=== PATIENT | male | born 1960 | race Caucasian/White ===

== ENCOUNTER → 2019-06-13 08:41 | Outpatient (BNVA) | payer OTHER, SELFPAY | PROVIDERS: Family Provider Family Medicine; PCP Family Medicine; Visit Provider Nurse Practitioner Family | DX: R31.9 Hematuria, unspecified; N40.1 Benign prostatic hyperplasia with lower urinary tract symptoms | CPT/HCPCS: 81001 ==

== ENCOUNTER 2021-03-13 11:58 | Emergency (ER) | payer OTHER, SELFPAY ==
[2021-03-13 12:17] VITALS: BP 149/95; PULSE 110; RESP 20; TEMP 36.8; O2SAT 95; BMI 36.9
[2021-03-13 12:54] LABS: Urine Color Red (Yellow)
[2021-03-13 12:55] LABS: Add Urine Culture? Yes; Add Urine Microscopic? YES; Bilirubin Urine 1+ (Negative); Blood Urine 3+ (Negative); Glucose Urine UA 4+ (Normal); Ketones Urine 1+ (Negative); Leukocyte Esterase Urine 1+ (Negative); Nitrate Urine Positive (Negative); Protein Urine 3+ (Negative); RBC Urine TOO NUMEROUS TO CNT /hpf (0-2); Urobilinogen Urine 1 mg/dL (Negative); WBC Urine 0-4 /hpf (0-5); pH Urine 5 (5-7)
[2021-03-13 13:48] LABS: Basophils # 0.1 10^3/uL (0.0-0.1); Basophils % 0.5 %; Eosinophils # 0.1 10^3/uL (0.0-0.8); Eosinophils % 1.1 %; Hematocrit 46.6 % (42.0-52.0); Hemoglobin 15.5 g/dL (11.7-16.6); Lymphocytes # 2.3 10^3/uL (0.8-4.8); Lymphocytes % 24.6 %; Mean Corpuscular HGB Conc 33.3 g/dL (30.0-36.0); Mean Corpuscular Hemoglobin 30.3 pg (28.0-34.0); Mean Platelet Volume 12.7 fL (7.4-10.4); Monocytes # 0.5 10^3/uL (0.2-0.9); Monocytes % 5.4 %; Neutrophils # 6.21 10^3/uL (1.8-7.7); Neutrophils % 68.1 %; Nucleated Red Blood Cells % 0 %; Platelet Count 179 10^3/cmm (130-400); Red Blood Count 5.12 10^6/uL (4.1-5.3); Red Cell Distribution Width 13.2 % (12.1-15.1); White Blood Count 9.1 10^3/uL (4.0-10.0)
[2021-03-13 13:55] VITALS: BP 136/89; PULSE 101; RESP 16; O2SAT 93
[2021-03-13 14:09] LABS: Alanine Aminotransferase 89 U/L (0-41); Albumin Level 4.2 g/dL (3.5-5.2); Alkaline Phosphatase 117 IU/L (40-130); Anion Gap 16.3 (5-19); Aspartate Amino Transferase 51 U/L (0-40); Blood Urea Nitrogen 25 mg/dL (8-23); Carbon Dioxide 21 mmol/L (22-29); Chloride 105 mmol/L (98-107); Globulin 2.5 g/dL (1.3-4.6); Glomerular Filtration Rate 85.8 mL/min (90-130); Glucose 240 mg/dL (65-115); Osmolality Calculated 298 mOsm/kg (285-295); Potassium 4.3 mmol/L (3.5-5.1); Sodium 138 mmol/L (136-145); Total Bilirubin 0.6 mg/dL (0.15-1.2); Total Protein 6.7 g/dL (6.6-8.7)
--- NOTE | 2021-03-13 14:12 | ED_ITS ---
HPI - Male Genitourinary General: Chief complaint: Urogenital-Male Stated complaint: BLOOD IN URINE Time Seen by Provider: 03/13/21 13:53 Source: patient Mode of arrival: ambulatory Limitations: no limitations History of Present Illness: 60 year old male presents to ER with hematuria and blood clots in urine. Reports this started 3 days ago. He has to pee every 10-15 minutes, but he only pees a little bit and feels like he can't fully evacuate his bladder. Reports dysuria. Reports abdominal pain and flank pain that started today. No history of kidney stones or cancer. Reports that he used to see a urologist due to an enlarged prostate. MD Complaint: other (hematuria) Onset (ago): day(s) (3) Associated symptoms: Reports dysuria and hematuria; Deny fevers/chills, nausea or vomiting Review of Systems Const: Denies: fever(s), chills, body aches, change in appetite, fatigue or malaise ENMT: Denies: throat pain, nasal discharge or nasal congestion Card: Denies: chest pain, edema, dyspnea on exertion or orthopnea Resp: Denies: dyspnea or productive cough GI: Denies: nausea, vomiting, diarrhea, constipation or bloating : Reports: flank pain, dysuria, urinary frequency, urinary urgency, urinary hesitancy and hematuria Skin/Breast: Denies: rash or pruritus [facility] ED PFSH: Medical History (Updated 03/13/21 @ 16:39 by Felipe Ortiz DO) BPH NOS w ur obs/LUTS Diabetes Hematuria Surgical History S/P decompression of ulnar nerve Family History Mother , 75 Cancer Diabetes Father , 80's No problems noted. Social History Smoking and tobacco status: former smoker Alcohol intake: never Marital status: Single Current occupational status: employed History of recent travel: No Physical Exam Const: COMMON NORMALS: no acute distress GENERAL APPEARANCE: cooperative and comfortable ORIENTATION/CONSCIOUSNESS: Yes awake, Yes oriented to person, Yes oriented to place and Yes oriented to time Resp: COMMON NORMALS: normal respiratory effort, No retractions, No use of accessory muscles and clear to auscultation bilaterally AUSCULTATION: clear to auscultation bilaterally Cardio: COMMON NORMALS: regular rate, regular rhythm and No murmurs present (Cardio) RATE: regular rate RHYTHM: regular rhythm GI: COMMON NORMALS: Soft to palpation PALPATION: Yes Soft to palpation, No Tenderness to palpation present (GI) and No Guarding due to palpation present (GI) OTHER: Generalized tenderness to palpation. : COMMON NORMALS: Yes no CVA tenderness BLADDER/KIDNEY EXAM: Yes no CVA tenderness OTHER: Bilateral flank pain. Back/Pelvis: COMMON NORMALS: no CVA tenderness Extremity: COMMON NORMALS: normal to inspection, capillary refill normal and no clubbing, cyanosis or edema Neuro: SENSORIUM/ORIENTATION: Yes oriented to person, Yes oriented to place and Yes oriented to time Course Vital Signs: Vital signs: Vital Signs Temperature 98.3 F 03/13/21 12:17 Pulse Rate 101 H 03/13/21 13:55 Respiratory Rate 16 03/13/21 13:55 Blood Pressure 136/89 03/13/21 13:55 Pulse Oximetry 93 03/13/21 13:55 [facility] - Male Medical Decision Making Labs and imaging reviewed with the patient. He is already on max dose of Flomax and is on finasteride. He does have positive nitrites and was started on Bactrim Corley placed irrigated bladder aggressively. We will have him use a leg bag at home and have him set up to follow-up with Dr. Paniagua if he has any worsening problems of the leg bag stops draining that he needs to return to the emergency room to have it reirrigated. Medical Records I reviewed the patient's medical records. Lab Data I reviewed the patient's lab results. : 03/13/21 13:37 03/13/21 13:37 Radiology Impressions Abdomen/Pelvis CT 03/13/21 14:12 IMPRESSION: 1. No renal mass or obstruction. 2. too small to characterize hypodensities within each kidney. Differential includes cysts, complex cysts and early solid mass. There is been a very slight increase in size of these renal hypodensities since 04/16/2019. No large solid mass. 3. Enlarged prostate gland measures 6.5 x 6.1 x 6.8 cm encroaching into the urinary bladder. 4. Lobulated high density material in the urinary bladder consistent with acute blood. The source of this blood is uncertain but could be the prostate gland. Cannot confirm acutely bleeding lesion within the kidneys. 5. Hepatomegaly and hepatic steatosis. 6. No significant adenopathy. Notified Felipe Ortiz DO at 03/13/2021 3:02 PM. Laboratory Results WBC 9.1 10^3/uL (4.0-10.0) 03/13/21 13:37 RBC 5.12 10^6/uL (4.1-5.3) 03/13/21 13:37 Hgb 15.5 g/dL (11.7-16.6) 03/13/21 13:37 Hct 46.6 % (42.0-52.0) 03/13/21 13:37 MCV 91.0 fl (80-94) 03/13/21 13:37 MCH 30.3 pg (28.0-34.0) 03/13/21 13:37 MCHC 33.3 g/dL (30.0-36.0) 03/13/21 13:37 RDW 13.2 % (12.1-15.1) 03/13/21 13:37 Plt Count 179 10^3/cmm (130-400) 03/13/21 13:37 MPV 12.7 fL (7.4-10.4) H 03/13/21 13:37 Neut % (Auto) 68.1 % 03/13/21 13:37 Lymph % (Auto) 24.6 % 03/13/21 13:37 Guthrie % (Auto) 5.4 % 03/13/21 13:37 Eos % (Auto) 1.1 % 03/13/21 13:37 Baso % (Auto) 0.5 % 03/13/21 13:37 Neut # (Auto) 6.21 10^3/uL (1.8-7.7) 03/13/21 13:37 Lymph # (Auto) 2.3 10^3/uL (0.8-4.8) 03/13/21 13:37 Guthrie # (Auto) 0.5 10^3/uL (0.2-0.9) 03/13/21 13:37 Eos # (Auto) 0.1 10^3/uL (0.0-0.8) 03/13/21 13:37 Baso # (Auto) 0.1 10^3/uL (0.0-0.1) 03/13/21 13:37 Nucleated RBC % (auto) 0 % 03/13/21 13:37 Nucleated RBCs # 0.0 /100WBC 03/13/21 13:37 Sodium 138 mmol/L (136-145) 03/13/21 13:37 Potassium 4.3 mmol/L (3.5-5.1) 03/13/21 13:37 Chloride 105 mmol/L (98-107) 03/13/21 13:37 Carbon Dioxide 21 mmol/L (22-29) L 03/13/21 13:37 Anion Gap 16.3 (5-19) 03/13/21 13:37 BUN 25 mg/dL (8-23) H 03/13/21 13:37 Creatinine 0.9 mg/dL (0.7-1.2) 03/13/21 13:37 GFR Calculation 85.8 mL/min (90-130) L 03/13/21 13:37 Glucose 240 mg/dL (65-115) H 03/13/21 13:37 Calculated Osmolality 298 mOsm/kg (285-295) H 03/13/21 13:37 Calcium 9.0 mg/dL (8.5-10.5) 03/13/21 13:37 Total Bilirubin 0.6 mg/dL (0.15-1.2) 03/13/21 13:37 AST 51 U/L (0-40) H 03/13/21 13:37 ALT 89 U/L (0-41) H 03/13/21 13:37 Alkaline Phosphatase 117 IU/L (40-130) 03/13/21 13:37 Total Protein 6.7 g/dL (6.6-8.7) 03/13/21 13:37 Albumin 4.2 g/dL (3.5-5.2) 03/13/21 13:37 Globulin 2.5 g/dL (1.3-4.6) 03/13/21 13:37 Urine Color Red (Yellow) 03/13/21 12:06 Urine Appearance Sl cloudy (CLEAR) A 03/13/21 12:06 Urine pH 5 (5-7) 03/13/21 12:06 Ur Specific [place] 1.020 (1.005-1.030) 03/13/21 12:06 Urine Protein 3+ (Negative) H 03/13/21 12:06 Urine Glucose (UA) 4+ (Normal) H 03/13/21 12:06 Urine Ketones 1+ (Negative) H 03/13/21 12:06 Urine Blood 3+ (Negative) H 03/13/21 12:06 Urine Nitrate Positive (Negative) H 03/13/21 12:06 Urine Bilirubin 1+ (Negative) H 03/13/21 12:06 Urine Urobilinogen 1 mg/dL (Negative) H 03/13/21 12:06 Ur Leukocyte Esterase 1+ (Negative) H 03/13/21 12:06 Urine RBC Too numerous to cnt /hpf (0-2) H 03/13/21 12:06 Urine WBC 0-4 /hpf (0-5) H 03/13/21 12:06 Ur Squamous Epith Cells None /hpf (0-5) 03/13/21 12:06 Amorphous Sediment Not Reportable 03/13/21 12:06 Urine Bacteria None /hpf (NONE) 03/13/21 12:06 Discharge Plan Discharge Patient Disposition: Home Clinical Impression: BPH NOS w ur obs/LUTS, Acute retention of urine Condition: Stable Prescriptions: New Bactrim DS 800-160 mg tablet 1 tab PO BID 10 Days Qty: 20 0RF No Action metformin 1,000 mg tablet 1,000 mg PO BID 0RF glipizide 5 mg tablet 10 mg PO BID 0RF tamsulosin 0.4 mg capsule 0.4 mg PO BID Qty: 180 0RF finasteride 5 mg tablet 5 mg PO DAILY Qty: 90 0RF Discharge Orders: Discharge ED (Routine); Ordered 03/13/21 Ordered By: Felipe Ortiz Referrals: Raimundo Bearden [Primary Care Provider] - Discharge Diet: Usual diet Discharge Activity: Resume usual activity Patient Instructions: Opioid Safety Activity Restrictions/Additional Instructions: Case management will call to make arrangements for you to see Dr. Paniagua. Continue to use the leg bag until then. Is a leg bag does not drain adequately return to the emergency room to have it flushed. Coding Level of Care Code ED Cisco Unified Communications Engineer for Chg Fwd Exam Detailed
--- NOTE | 2021-03-13 14:12 | CT_ITS ---
WS: [id number] CT ABDOMEN AND PELVIS WITH AND WITHOUT CONTRAST HISTORY: abd pain, hematuria. TECHNIQUE: Unenhanced 5 mm axial imaging first performed through the abdomen. Post contrast imaging t hrough the abdomen and pelvis. Oral contrast has not been provided. Sagittal and coronal reformats a re submitted. All CT scans at [facility] use at least one of these dose optimization techniqu es: automated exposure control; mA and/or kV adjustment per patient size (includes targeted exams whe re dose is matched to clinical indication); or iterative reconstruction. CONTRAST: Omnipaque 300; 95 mL IV. DLP: 1637.43 mGy.cm COMPARISON: 04/16/2019 Lung bases are clear. Lung bases are hyperexpanded. Mildly enlarged heart with a small hiatal hernia. Liver is enlarged with moderate to severe hepatic steatosis. Focal area of blush-like enhancement jus t to the LEFT of the falciform ligament probably a hemangioma which completely fills in and becomes i sodense on the delayed imaging. Portal vein is normal. Gallbladder is normal. Normal size spleen with granulomata. Normal pancreas and adrenal glands. Mild atherosclerosis aorta. RIGHT kidney: Normal size kidney with no obstruction or calcification. There are a few scattered hypo densities throughout the kidney. Hypoattenuating nodule measuring 9 mm in the mid to lower kidney may be a complex cyst or early neoplasm. These low-attenuation masses were also present on the prior CT from 04/16/2019 with mild increase in size. Contrast in the renal pelvis and proximal ureter is identi fied on the delayed images. Unfortunately patient was unable to retain distention of the urinary blad samm and voided prior to the imaging on the delayed sequence. Therefore the urinary bladder is not di stended with contrast. LEFT kidney: Mild perinephric stranding. Nonobstructing calcification posterior mid kidney. There are a few scattered hypodensities which cannot be further characterized due to their small size. No obst ruction. Proximal LEFT ureter is normal caliber. Urinary bladder: Prostate gland is enlarged encroaching into the urinary bladder. Prostate extends ov er length of 6.5 cm x 6.1 x 6.8 cm. There is central calcifications noted. Within the urinary bladder there is an additional lobulated area of increased density which is probably acute blood products wi thin the bladder. No discrete bladder masses otherwise identified other than the invading prostate gl and. No ascites. There are a few small cervical chain lymph nodes. Lymph nodes are not enlarged. Normal ap pendix. No GI tract obstruction. Increase in the lumbar lordosis. No destructive bone lesions. CT/CT abdomen pelvis wo/w [id number] IMPRESSION: 1. No renal mass or obstruction. 2. too small to characterize hypodensities within each kidney. Differential in cludes cysts, complex cysts and early solid mass. There is been a very slight i ncrease in size of these renal hypodensities since 04/16/2019. No large solid ma ss. 3. Enlarged prostate gland measures 6.5 x 6.1 x 6.8 cm encroaching into the ur inary bladder. 4. Lobulated high density material in the urinary bladder consistent with acut e blood. The source of this blood is uncertain but could be the prostate gland. Cannot confirm acutely bleeding lesion within the kidneys. 5. Hepatomegaly and hepatic steatosis. 6. No significant adenopathy. Notified Felipe Ortiz DO at 03/13/2021 3:02 PM.
[2021-03-13] MEDS: iohexol 300 mg/mL 100 mL Btl IV (14:35)
[2021-03-13 17:30] VITALS: BP 117/76; PULSE 87; RESP 16; O2SAT 93
[2021-03-13 20:04] VITALS: PULSE 79; O2SAT 97
[2021-03-13] MEDS: cefTRIAXone 1,000 MG in lidocaine 1% 2.1 ML 2.1 MG IM (20:05)
--- NOTE | 2021-03-14 09:59 | DCPLANNER ---
Addendum entered by Rakel Flower 03/15/21 11:36: Patient had a follow up appointment scheduled for 03.15.[address] Paniagua - patient did attend appointment. Original Note: talent management manager had message to schedule a follow up appointment for patient with Dr. Paniagua. talent management manager emailed patients information to Kendrick Álvarez and Wilda at the office of Dr. Paniagua. Patients information will be printed and reviewed. Clinic will call patient with appointment information.
== END 2021-03-13 20:09 | disposition home or self-care (01) ==
PROVIDERS: Physician Assistant; Emergency Provider Family Medicine; PCP Family Medicine
DX: N40.1 Benign prostatic hyperplasia with lower urinary tract symptoms (principal); N13.8 Other obstructive and reflux uropathy; R33.8 Other retention of urine; Z79.84 Long term (current) use of oral hypoglycemic drugs; E11.9 Type 2 diabetes mellitus without complications; Z87.891 Personal history of nicotine dependence
CPT/HCPCS: 51702; 51798; 74178; 80053; 81001; 85025; 87086; 96372; 99284; J0696; Q9967

== ENCOUNTER → 2021-03-15 16:07 | Outpatient (BNVA) | payer OTHER, SELFPAY | PROVIDERS: Visit Provider Urology | DX: Z20.822 Contact with and (suspected) exposure to COVID-19 (principal); N40.1 Benign prostatic hyperplasia with lower urinary tract symptoms | CPT/HCPCS: 81003; 87635 ==

== ENCOUNTER 2021-03-20 10:33 | Observation (INO) | payer OTHER, SELFPAY ==
[2021-03-19 15:30] VITALS: BMI 37.5
[2021-03-20] VITALS (10 sets, daily range): BP systolic 91–165; BP diastolic 77–113; PULSE 83–96; RESP 15–20; TEMP 36.1–37; O2SAT 93–96
--- NOTE | 2021-03-20 06:13 | ANES.PREANE2 ---
Pre-Anesthetic Assessment Height/Weight: Height 1.85 m Weight 129.274 kg Temp Pulse Resp BP Pulse Ox 98.0 F 83 18 165/113 95 03/20/21 06:05 03/20/21 06:05 03/20/21 06:05 03/20/21 06:05 03/20/21 06:05 Preop Diagnosis: BPH with obstruction Operation Date: 03/20/21 07:00 Proposed Procedures p Transurethral Resection Of Prostate 58787/n40.1(Not Applicable) - Nicho Paniagua MD s Cystoscopy(Not Applicable) - Nicho Paniagua MD Was Beta Milvia taken within 24 hours: N/A Last intake: Intake Last Liquid Date 03/19/21 Last Liquid Time 22:00 Last Solid Date 03/19/21 Last Solid Time 20:00 Social No alcohol and No tobacco Exam alert, oriented x 3, clear to auscultation bilaterally and regular rate & rhythm Airway Submandibular: within normal limits Cervical ROM: within normal limits Mallampati: Class II Dentition: chipped Comments: Comments: Missing History/ROS No significant history except as noted Pulmonary None reported CV/HEM None reported Able to ascend flight of stairs w/o SOB Chops wood BPH Hematuria Hepatic None reported GI None reported Metabolic [place] [facility] [place] None reported Neuropsych None reported Anesthetic Plan ASA status: 2 Anesthesia: General Other: We discussed risk and benefits of general anesthesia including PONV, sore throat (sometimes severe), corneal abrasion, positioning and peripheral nerve injuries, life threatening allergic reaction, post operative ICU admission requiring prolonged intubation, stroke, heart attack, , and rare incidences of recall. Patient consents to proceed with general anesthesia. Risk of > 500 ml blood loss (7ml/kg in children): No Medications/Allergies Home Medications Medication Instructions Recorded Confirmed Last Taken Type glipizide 5 mg tablet 10 mg PO BID tab 06/13/19 03/20/21 03/18/21 22:00 History finasteride 5 mg tablet 5 mg PO DAILY #90 tab 08/10/19 03/20/21 03/18/21 22:00 Rx metformin 1,000 mg tablet 500 mg PO BID tab 03/15/21 03/20/21 03/18/21 22:00 History tamsulosin 0.4 mg capsule 0.8 mg PO BID 03/19/21 03/20/2103/18/22 22:00 History Allergies Allergy/AdvReac Type Severity Reaction Status Date / Time No Known Allergies Allergy Verified 03/19/21 15:27 [facility] Anesthesia Medical History BPH NOS w ur obs/LUTS Diabetes Hematuria Surgical History S/P decompression of ulnar nerve Family History Mother , 75 Cancer Diabetes Father , 80's No problems noted. Social History Smoking and tobacco status: former smoker Alcohol intake: never Marital status: Current occupational status: employed History of recent travel: No Data Anesthesia : 03/20/21 06:55 03/20/21 06:55 Cardiac Studies: No Data to Display
[2021-03-20 06:19] LABS: Glucose Point of Care 238 mg/dL (70-110)
[2021-03-20] MEDS: sodium chloride 0.9% 1,000 ML 30 ML IV (06:28)
--- NOTE | 2021-03-20 06:54 | P.HPUD_ITS ---
Surgery/Procedure H&P Update DATE OF PROCEDURE: March 20, 2021 DATE H&P PERFORMED: 03/15/21 H&P UPDATE INFORMATION: I have reviewed H&P completed within last 30 days, I have examined patient prior to procedure, No changes to prior documentation and H&P is in [facility] EMR on date indicated CHANGES TO PREVIOUS DOCUMENTATION: none PREOP DIAGNOSIS: BPH with obstruction PRIMARY INDICATION FOR PROCEDURE: see H&P PLANNED PROCEDURE: Operation Date: 03/20/21 07:00 Proposed Procedures p Transurethral Resection Of Prostate 28590/n40.1(Not Applicable) - Nicho Paniagua MD s Cystoscopy(Not Applicable) - Nicho Paniagua MD
[2021-03-20] MEDS: levofloxacin-dextrose 5 % 500 MG/100 ML PREMIX 100 MG IV (07:00)
--- NOTE | 2021-03-20 07:01 | PM.OP ---
Operative Report Date of procedure: March 20, 2021 Pre-op diagnosis: Preop Diagnosis BPH with obstruction Post-op diagnosis: BPH with obstruction Procedure done: Cystoscopy, transurethral resection/vaporization of prostate Specimens removed/disposition: Sr Community Manager prostate chips Pathology: Sr Community Manager prostate chips Surgeon: Siva Anesthesia: General Estimated blood loss: <50 cc Urine output: Not measured Complications: None Findings: Huge prostate gland, trilobar enlargement. Very large intravesically protruding median and lateral lobes. Most of the prostate was treated with vaporization technique with the button probe but some appliance service representative TUR specimens obtained. Wide open at the end of the procedure. Brief History: Mr. Romero is a very pleasant 60-year-old white male with a very large prostate gland and progressive bladder light obstructive symptoms for years. He has been on maximal medical therapy for time and continues to have significant lower urinary tract symptoms including new retention, retention, recurrent prostatic bleeding with gross hematuria. Recently reevaluated and requested TURP. We discussed surgical options multiple times over the years. Cystoscopy revealed the above findings and is admitted now for TURP Procedure: After routine preoperative evaluation examination and obtaining of informed consent he was taken to the operating suite on 03/20/2021 where general anesthesia was administered without difficulty after appropriate timeout was performed, SCDs confirmed to be functioning, preoperative antibiotics administered, beta-michi protocol confirmed. Prepped and draped in the usual sterile fashion in dorsolithotomy position paying careful attention to avoiding pressure points. 21 Brazilian cystoscope with 30 degree lens was introduced into the well-lubricated urethra and advanced into the bladder without difficulty. The bladder was systematically examined. Orifices were identified well away from the intravesically protruding median lobes. Bladder showed severe trabeculation. Prostatic tissue is very friable. Urethra was then calibrated with [place] sounds and easily accommodated 30 Brazilian. 2% lidocaine jelly was instilled into the urethra then a well-lubricated 25 Brazilian continuous-flow resectoscope sheath with visual obturator in place was advanced into the bladder without difficulty. The gyrus bipolar system was utilized for resection and vaporization. Initial technique utilized was vaporization with the button probe in order to make obtain meticulous hemostasis initially. The bulk of the prostate tissue was vaporized as opposed to resected but the supersect loop was utilized in strategic areas for speeding up the process. Initial vaporization focused on the intravesically protruding median lobe. This was taken down to the circular fibers of the bladder neck. There were also 2 lateral protrusions into the bladder from the lateral lobes which were also vaporized down to the circular fibers of the bladder neck. After the intravesical protrusion portion of the prostate was vaporized and resected, attention was directed to the lateral lobes from the 12:00 down to the 5 o'clock position from the bladder neck out to but not distal to the verumontanum and then the same longitudinal extent and depth on the right side from the 12 o'clock position down to the 7 o'clock position. The floor the prostate was then harvested. Sculpting of the prostate with smoothing of the internal lumen was performed with vaporization current. All chips were evacuated from the bladder. Orifices were confirmed to be noninvolved. Tissue distal to the verumontanum was also not involved with resection. On final inspection hemostasis was good, no chips remained in the bladder,. The bladder was drained with a 24 Brazilian three-way Corley catheter with 45 cc placed in the balloon. Drainage was clear. Light CBI was initiated He tolerated procedure well without complications. Awakened in the operating room and returned to the PACU in stable condition. PLANS: 1. Admit to observation status with anticipation of discharge tomorrow with or without catheter 2. Routine postoperative TURP care.
[2021-03-20 07:31] LABS: Basophils # 0.1 10^3/uL (0.0-0.1); Basophils % 0.7 %; Eosinophils # 0.2 10^3/uL (0.0-0.8); Eosinophils % 2.1 %; Hematocrit 46.3 % (42.0-52.0); Hemoglobin 15.4 g/dL (11.7-16.6); Lymphocytes # 2.5 10^3/uL (0.8-4.8); Lymphocytes % 34.7 %; Mean Corpuscular HGB Conc 33.3 g/dL (30.0-36.0); Mean Corpuscular Hemoglobin 29.8 pg (28.0-34.0); Mean Corpuscular Volume 89.7 fl (80-94); Mean Platelet Volume 13.4 fL (7.4-10.4); Monocytes # 0.5 10^3/uL (0.2-0.9); Monocytes % 7.6 %; Neutrophils # 3.86 10^3/uL (1.8-7.7); Neutrophils % 54.1 %; Nucleated Red Blood Cells % 0 %; Platelet Count 215 10^3/cmm (130-400); Red Blood Count 5.16 10^6/uL (4.1-5.3); Red Cell Distribution Width 13.2 % (12.1-15.1); White Blood Count 7.1 10^3/uL (4.0-10.0)
[2021-03-20] MEDS: lidocaine 2% Urojet 20 mL TOPICAL (07:35)
[2021-03-20] MEDS: docusate sodium 100 mg Capsule PO ×2 (11:17→17:02)
[2021-03-20] MEDS: finasteride 5 mg Tablet PO (11:17)
[2021-03-20] MEDS: tamsulosin 0.4 mg Capsule 0.8 MG PO (11:17)
[2021-03-20 11:46] LABS: Glucose Point of Care 280 mg/dL (70-110)
--- NOTE | 2021-03-20 12:59 | ANE.PACU2 ---
Inpatient post-anesthesia follow up: Airway intact: Yes Vital signs: Temperature 97.3 F Pulse Rate 83 Respiratory Rate 18 Blood Pressure 137/92 Pulse Oximetry 96 Oxygen Delivery Me thod Room Air Oxygen Flow Rate Fraction of Inspir ed Oxygen Hydration adequate: Yes Nausea and vomiting: No Pain level: 1 Mental status: Baseline
[2021-03-20] MEDS: metformin 500 mg Tablet PO (17:02)
[2021-03-20] MEDS: sodium chloride 0.9% 1,000 ML 100 ML IV (17:02)
[2021-03-20 17:41] LABS: Glucose Point of Care 208 mg/dL (70-110)
--- NOTE | 2021-03-20 18:13 | PC.NURSE ---
PATIENT HAS DONE WELL TODAY. URINE BRIGHT RED UPON ARRIVAL FROM OR. IRRIGATION WIDE OPEN. THIS NURSE TITRATED UNTIL URINE WAS PHARMACY TECHNICIAN. URINE NOW A DARK YELLOW. MANUAL IRRIGATION ADMINISTERED ONE TIME. NO CLOTS RECEIVED. PATIENT HAS HAD 9000ML IN, 10,925ML OUT. NO COMPLAINTS OF PAIN.
[2021-03-21] VITALS: BP 135/81; PULSE 84; RESP 14; TEMP 36.8; O2SAT 93
[2021-03-21 04:00] VITALS: BP 139/82; PULSE 75; RESP 15; TEMP 36.6; O2SAT 93
[2021-03-21] MEDS: sodium chloride 0.9% 1,000 ML 100 ML IV ×3 (04:30→23:58)
[2021-03-21 06:48] LABS: Glucose Point of Care 273 mg/dL (70-110)
[2021-03-21] MEDS: metformin 500 mg Tablet PO ×2 (07:55→17:47)
[2021-03-21] MEDS: tamsulosin 0.4 mg Capsule 0.8 MG PO (07:55)
[2021-03-21] MEDS: finasteride 5 mg Tablet PO (07:55)
[2021-03-21] MEDS: docusate sodium 100 mg Capsule PO (07:56)
[2021-03-21 08:00] VITALS: BP 143/87; PULSE 79; TEMP 37.1; O2SAT 95
--- NOTE | 2021-03-21 09:58 | PC.CHAP ---
Pastoral Care Encounter/Spiritual Assessment Type of Contact [] Declined core winding operator visit [] Patient/Family/Request visit [] Outpatient visit [] Follow-up visit [] Physician referral [] Code/Alert [] Routine visit [] Staff referral [] Actively dying [] Patient sleeping [] Family support [] [] Out of room [] Palliative care [] [] Receiving care in room [] Pre-surgical visit [] Trauma [] Long length of stay [] ICU visit [] Other: Relational/Emotional Strength [] Patient feels connected with others/family/visitors/staff [] Distress [] Loneliness/isolation [] Abandonment Spirituality of Patient [] Person of Darby [] Attends Zoroastrian of their Darby [] Believes in Prayer [] Reads Bible or Shinto materials [] There are Spiritual issues to be addressed Education Diagnostician Interventions [] Prayer [] Active listening [] Non-anxious presence [] Spiritual/emotional support [] Crisis/trauma care [] Spiritual counseling [] Bereavement support [] Provided bereavement packet [] Provided Bible/devotional materials [] Provided toy/stuffed animal, coloring book to patient or family member [] Provided Communion [] Anointing/[place] [] Salvation [] Completed spiritual assessment [] Other: Impact on Illness or Injury [] Angry [] Fearful [] Anxious [] Often cries [] Exhaustion [] Unable to work [] Unable to attend bahai [] Unable to walk/stand [] Unable to read [] Unable to drive [] Unable to eat/drink [] Unable to sleep [] Unable to be with family [] Patient intubated [] Other: Summary Time spent with patient Pastoral Care Encounter/Spiritual Assessment Type of Contact [] Declined core winding operator visit [] Patient/Family/Request visit [] Outpatient visit [] Follow-up visit [] Physician referral [] Code/Alert [x] Routine visit [] Staff referral [] Actively dying [] Patient sleeping [] Family support [] [] Out of room [] Palliative care [] [] Receiving care in room [] Pre-surgical visit [] Trauma [] Long length of stay [] ICU visit [] Other: Relational/Emotional Strength [] Patient feels connected with others/family/visitors/staff [] Distress [] Loneliness/isolation [] Abandonment Spirituality of Patient [] Person of Darby [] Attends Zoroastrian of their Darby [] Believes in Prayer [] Reads Bible or Shinto materials [] There are Spiritual issues to be addressed Education Diagnostician Interventions [] Prayer [] Active listening [] Non-anxious presence [] Spiritual/emotional support [] Crisis/trauma care [] Spiritual counseling [] Bereavement support [] Provided bereavement packet [] Provided Bible/devotional materials [] Provided toy/stuffed animal, coloring book to patient or family member [] Provided Communion [] Anointing/[place] [] Salvation [x] Completed spiritual assessment [] Other: Impact on Illness or Injury [] Angry [] Fearful [] Anxious [] Often cries [] Exhaustion [] Unable to work [] Unable to attend bahai [] Unable to walk/stand [] Unable to read [] Unable to drive [] Unable to eat/drink [] Unable to sleep [] Unable to be with family [] Patient intubated [] Other: Summary declined prayer Time spent with patient 10 min
--- NOTE | 2021-03-21 10:01 | P.PN_ITS ---
Subjective Subjective: Interval history: Urology postop day #1: Afebrile vital signs stable. No complaints. Urine is still light pink with CBI running. 1 manual irrigation required. Reviewed his options including voiding trial, maintain Corley catheter as inpatient with hopes of removing tomorrow, discharging (potentially if urine can be clear enough off of CBI later today) with catheter in place. After thorough discussion we elected to maintain in hospital for further observation today and tonight with hopes for discharge tomorrow without catheter. He will be changed to inpatient status because of this requirement and care extending over at least 2 midnights. Medications: Reviewed: Yes Vitals/I&O/Wt Last Vital Signs Temp 98.8 F 03/21/21 08:00 Pulse 79 03/21/21 08:00 Resp 15 03/21/21 04:00 BP 143/87 03/21/21 08:00 Pulse Ox 95 03/21/21 08:00 03/20/21 03/21/21 03/21/21 22:59 06:59 14:59 Intake Total 240 / 1460 1060 / 2520 Output Total 1450 / 1460 5100 / 6560 Balance -1210 / 0 -4040 / -4040 Weight last 48 hrs Weight 285 lb Physical Exam Narrative: EXAM NARRATIVE: Alert oriented no acute distress HEENT atraumatic normocephalic Neck good range of motion Respiratory good air movement. No audible wheezing. No labored Abdomen is soft nontender no palpable masses Extremities without significant edema. catheter is draining pink urine with CBI running. Mental status was normal. Urinary Catheter Management: Corley: Cath Placed During This Visit: yes Reason for Continuing Indwelling Catheter: Acute Urinary Retention or Obstruction Urinary Catheter Date of Insertion: 03/20/21 Urinary Catheter Time of Insertion: 09:24 Data : 03/20/21 06:55 03/20/21 06:55 A&P Assessment and plan (1) BPH NOS w ur obs/LUTS: Status post TURP/TUVP Overall doing well. Not able to wean CBI off yet. See HPI Status: Acute (2) Gross hematuria: Improving. Status: Acute (3) Diabetes: Blood sugars running moderately high. Back on his normal diabetes medications. Status: Acute Attestations Medical Necessity Statement*: Because of CBI requirement he will be switched to inpatient status and maintain at least 1 more night. Goal will be to wean the CBI off, voiding trial tomorrow potentially or discharge tomorrow with catheter in place. Coding Level of Care Code Acute Research Instructor for Bettina Fwd Diagnoses BPH NOS w ur obs/LUTS N40.1 Gross hematuria R31.0 Diabetes E11.9
[2021-03-21 12:00] VITALS: BP 143/87; PULSE 80; RESP 16; O2SAT 92
[2021-03-21 12:00] LABS: Glucose Point of Care 199 mg/dL (70-110)
[2021-03-21 16:00] VITALS: BP 145/85; PULSE 75; RESP 17; TEMP 36.6; O2SAT 94
[2021-03-21 17:40] LABS: Glucose Point of Care 177 mg/dL (70-110)
[2021-03-22] VITALS: BP 142/80; PULSE 76; RESP 15; TEMP 36.6; O2SAT 94
[2021-03-22 04:00] VITALS: BP 138/88; PULSE 77; RESP 16; TEMP 36.7; O2SAT 94
[2021-03-22 06:20] LABS: Glucose Point of Care 193 mg/dL (70-110)
--- NOTE | 2021-03-22 06:48 | PM.DCS ---
Discharge Providers Date of Admission: 03/20/21 10:33 Date of Discharge: March 22, 2021 Attending Provider at Admission: Nicho Oshea MD Attending Provider at Discharge: Nicho Oshea MD Consults: None Diagnoses at Discharge Discharge Diagnosis (1) BPH NOS w ur obs/LUTS: Status: Acute (2) Gross hematuria: Status: Acute (3) Diabetes: Status: Acute Reason for Visit Reason for Visit: bph Brief History: Progressive refractory BPH/obstruction on maximal medical therapy. Iggy retention/retention and persistent gross hematuria from prostatic bleeding. Ultimately elected TURP/TUVP in hopes of definitive therapy of refractory BPH Hospital Course Hospital Course He was admitted on the day of the procedure which went well. He was found to have a huge prostate with most of the tissue vaporized as opposed to resected. Postoperatively hemostasis was good and the prostatic fossa was wide open. Was maintained on CBI postoperatively until postop day #2 when the catheter was removed. Urine was clear enough to feel safe with that. Voided spontaneously with clearing urine and good emptying as confirmed via bladder scan. Discharge from afternoon of postop day #1. Physical Exam Narrative: EXAM NARRATIVE: Alert oriented no acute distress No audible wheezing or labored respiration Abdomen is soft nontender no palpable masses or organomegaly appreciated. Normal genitourinary exam with no change. Mental status clear. Good judgment. Urinary Catheter Management: Corley: Cath Placed During This Visit: yes Reason for Continuing Indwelling Catheter: Acute Urinary Retention or Obstruction Urinary Catheter Date of Insertion: 03/20/21 Urinary Catheter Time of Insertion: 09:24 Discharge Data Studies Completed and Pending Pending at discharge Category Date Time Status Pathology: Surgical [PTH] Routine Pth 03/20/21 09:48 Received Laboratory Results WBC 7.1 10^3/uL (4.0-10.0) 03/20/21 06:55 RBC 5.16 10^6/uL (4.1-5.3) 03/20/21 06:55 Hgb 15.4 g/dL (11.7-16.6) 03/20/21 06:55 Hct 46.3 % (42.0-52.0) 03/20/21 06:55 MCV 89.7 fl (80-94) 03/20/21 06:55 MCH 29.8 pg (28.0-34.0) 03/20/21 06:55 MCHC 33.3 g/dL (30.0-36.0) 03/20/21 06:55 RDW 13.2 % (12.1-15.1) 03/20/21 06:55 Plt Count 215 10^3/cmm (130-400) 03/20/21 06:55 MPV 13.4 fL (7.4-10.4) H 03/20/21 06:55 Neut % (Auto) 54.1 % 03/20/21 06:55 Lymph % (Auto) 34.7 % 03/20/21 06:55 [place] % (Auto) 7.6 % 03/20/21 06:55 Eos % (Auto) 2.1 % 03/20/21 06:55 Baso % (Auto) 0.7 % 03/20/21 06:55 Neut # (Auto) 3.86 10^3/uL (1.8-7.7) 03/20/21 06:55 Lymph # (Auto) 2.5 10^3/uL (0.8-4.8) 03/20/21 06:55 [place] # (Auto) 0.5 10^3/uL (0.2-0.9) 03/20/21 06:55 Eos # (Auto) 0.2 10^3/uL (0.0-0.8) 03/20/21 06:55 Baso # (Auto) 0.1 10^3/uL (0.0-0.1) 03/20/21 06:55 Nucleated RBC % (auto) 0 % 03/20/21 06:55 Nucleated RBCs # 0.0 /100WBC 03/20/21 06:55 Sodium Cancelled 03/20/21 06:55 Potassium Cancelled 03/20/21 06:55 Chloride Cancelled 03/20/21 06:55 Carbon Dioxide Cancelled 03/20/21 06:55 Anion Gap Cancelled 03/20/21 06:55 BUN Cancelled 03/20/21 06:55 Creatinine Cancelled 03/20/21 06:55 GFR Calculation Cancelled 03/20/21 06:55 Glucose Cancelled 03/20/21 06:55 POC Glucose 193 mg/dL (70-110) H 03/22/21 06:05 Calculated Osmolality Cancelled 03/20/21 06:55 Calcium Cancelled 03/20/21 06:55 Total Bilirubin Cancelled 03/20/21 06:55 AST Cancelled 03/20/21 06:55 ALT Cancelled 03/20/21 06:55 Alkaline Phosphatase Cancelled 03/20/21 06:55 Total Protein Cancelled 03/20/21 06:55 Albumin Cancelled 03/20/21 06:55 Globulin Cancelled 03/20/21 06:55 Vitals Last Vital Signs Temp 98.1 F 03/22/21 04:00 Pulse 77 03/22/21 04:00 Resp 16 03/22/21 04:00 BP 138/88 03/22/21 04:00 Pulse Ox 94 03/22/21 04:00 Discharge Plan Discharge Patient Disposition: Home Condition: Stable Prescriptions: Continued glipizide 5 mg tablet 10 mg PO BID 0RF metformin 1,000 mg tablet 500 mg PO BID 0RF tamsulosin 0.4 mg capsule 0.8 mg PO BID 0RF No Action finasteride 5 mg tablet 5 mg PO DAILY Qty: 90 3RF Discharge Orders: Discharge Order (Routine); Ordered 03/22/21 Ordered By: Nicho Oshea Referrals: Nicho Oshea MD [Physician] - 6 Weeks (Flow rate PVR AUA symptom score .CALL FOR APPOINTMENT WITH DR OSHEA FOR 6 WEEKS) Discharge Diet: Usual diet Discharge Activity: Limit activity as instructed Patient Instructions: Sulfamethoxazole/Trimethoprim (By mouth), Transurethral Prostatectomy (DC), Opioid Safety Activity Restrictions/Additional Instructions: 1. As previously discussed is very important to avoid any heavy lifting or straining. 2. Use stool softeners as needed to avoid constipation which would require straining similar to any other lifting. 3. Please call if you have any concerns or questions prior to follow-up visit currently scheduled for approximately 6 weeks. 4. You can expect to see blood off and on in your urine. This is normal until you are completely healed. At times it may completely clear and then start up again. Most importantly is to avoid straining, continue drinking a lot of fluids to help keep it flushed and avoiding significant clot formation. 5. A prescription for an antibiotic has been sent. You will take it for about a week. Discharge Attestations Time Spent in Discharge Care*: greater than 30 min Quality Metrics Clinical Quality Measures [ No reported AMI, CVA or VTE this stay] Coding Level of Care Code Acute Chg FW DC note Diagnoses BPH NOS w ur obs/LUTS N40.1 Gross hematuria R31.0 Diabetes E11.9
[2021-03-22 07:44] VITALS: BP 142/88; PULSE 69; RESP 18; TEMP 36.7; O2SAT 94
[2021-03-22] MEDS: docusate sodium 100 mg Capsule PO (08:15)
[2021-03-22] MEDS: finasteride 5 mg Tablet PO (08:15)
[2021-03-22] MEDS: metformin 500 mg Tablet PO (08:15)
[2021-03-22] MEDS: tamsulosin 0.4 mg Capsule 0.8 MG PO (08:15)
[2021-03-22 12:00] VITALS: BP 145/97; PULSE 88; RESP 18; TEMP 36.4; O2SAT 94
--- NOTE | 2021-03-22 12:36 | PC.NURSE ---
Dr. Paniagua called about 6 bottle urine. Reported that urine is looking clearer, he has passed minimal clots, and his most recent post void residual was [address] Paniagua stated that he is okay to discharge. Patient verbalized understanding of discharge instructions, home medications, and follow up appointments. All questions answered at this time.
[2021-03-22 12:52] VITALS: BP 145/97; PULSE 88; RESP 18; TEMP 36.4; O2SAT 94
[2021-03-22 21:01] LABS: Glucose Point of Care 210 mg/dL (70-110)
== END 2021-03-22 12:54 | disposition home or self-care (01) ==
LOC: MEDSURG 10:35
PROVIDERS: Admitting Provider Urology; Visit Provider Urology
PROC: 0VT08ZZ Resection of Prostate, Via Natural or Artificial Opening Endoscopic (ICD-10-PCS; CPT 52601; principal; 2021-03-20 07:00)
PROC: 0TJB8ZZ Inspection of Bladder, Via Natural or Artificial Opening Endoscopic (ICD-10-PCS; CPT 52000; 2021-03-20 07:00)
DX: N40.1 Benign prostatic hyperplasia with lower urinary tract symptoms (principal); N13.8 Other obstructive and reflux uropathy; R31.0 Gross hematuria; E11.9 Type 2 diabetes mellitus without complications; Z79.84 Long term (current) use of oral hypoglycemic drugs
CPT/HCPCS: 52601; 36415; 36416; 82962; 85025; 88305; 96365; G0378; J0330; J1956; J2370; J2704; J2710; J3010; J3490; J7030

== ENCOUNTER → 2021-04-19 11:07 | Outpatient (BNVA) | payer SELFPAY | PROVIDERS: Visit Provider Urology | DX: N40.1 Benign prostatic hyperplasia with lower urinary tract symptoms (principal) | CPT/HCPCS: 81003 ==

== ENCOUNTER → 2021-07-30 08:37 | Outpatient (BNVA) | payer OTHER, SELFPAY | PROVIDERS: Visit Provider Urology | DX: N40.1 Benign prostatic hyperplasia with lower urinary tract symptoms (principal); E11.9 Type 2 diabetes mellitus without complications | CPT/HCPCS: 81003 ==

== ENCOUNTER 2022-08-04 11:14 | Inpatient (IN) | payer MEDICAID, SELFPAY ==
[2022-08-04] VITALS (45 sets, daily range): BP systolic 95–130; BP diastolic 66–89; PULSE 77–100; RESP 9–30; O2SAT 90–94
--- NOTE | 2022-08-04 | XACV_ITS ---
Exam Room: [facility] [place] Ht: 185 cm Wt: 122 kg BSA: 2.55 m2 Gender: Male : 1960 Any Known Allergies: No known allergies Exam Priority: Routine Procedure(s): Procedure Description: Diagnostic procedure Procedure Description: Coronary Angiography Diagnostic Cath Status: Urgent Diagnostic Findings * Left Main has no significant disease. * Mid Right Coronary Artery: chronic total occlusion, LEISA: 0 flow. Receives collaterals from left system. * Ostial Left Anterior Descending: critical 95% stenosis, LEISA: 2 flow. * Ostial Circumflex: severe 90% stenosis, LEISA: 3 flow. Conclusions 1. Severe multivessel coronary artery disease involving 2. ostial LAD, ostial left circumflex artery and CHECK OUT CASHIER of 3. RCA. Recommendations * Recommend transfer to a tertiary care center for heart team discussion and possible viability study for assessing best revascularization strategy versus medical therapy. * Continue aspirin. Hold Brilinta. * Continue with nitroglycerin drip. Interventional RX Recommendation: CABG Diagnostic RX Recommendation: CABG Anticoagulation: Heparin Pressures Phase:Rest AO : 97 / 85 ( 92 ) @ 9:11:00 AM 99 / 88 ( 94 ) @ 9:12:00 AM 120 / 89 ( 102 ) @ 9:19:00 AM 120 / 89 ( 101 ) @ 9:20:00 AM 120 / 89 ( 101 ) @ 9:20:00 AM LV : 120 / 21 / 34 @ 9:19:00 AM 118 / 16 / 51 @ 9:19:00 AM Valves Phase:DefaultPhase AV : 0.0 @ 9:55:42 AM AV Mean Gradient: 0.0 @ 9:55:42 AM 0.0 @ 9:55:42 AM Clinical Evaluation EBL: 5mL-10mL Procedural Details Pre-Procedure Time Out. Identified patient by full name and date of as verbalized by the patient/guarantor. Does the consent match the physician's order: Yes. Accurate & Complete Informed Consent: Yes. Inpatient/Outpatient History & Physical on Chart: Yes. If H&P is completed, is and addenduem needed: No; If yes, is the addendum complete: N/A. Visualize and Verify Site with Patient/Guarantor: N/A. Relevant Radiology Images available: Yes. Pre-op teaching completed and patient verbalized understanding. The risks, benefits, and alternatives of sedation and/or procedure were discussed by physician. The patient agrees to continue. Procedure started. Current Diagnosis : NSTEMI. [facility] Clinical Fraility Score: 3: Managing Well. General Manager Food Indications: ACS > 24 hours. Chest Pain Symptom Assessment: Typical Angina Symptoms. Correct patient, site and procedure confirmed by cath team. Current diagnosis: NSTEMI. PERRLA. Strong, equal hand progress worker bilaterally. Lungs clear x 5 lobes. IV Site on Arrival: 18 gauge in the left anticubital. IV Fluids: 0.9% NaCl at KVO. 0 mL infused prior to cardiac cath lab radiology technologist. Pre Procedural Pulses: right radial was 3+. Oxygen started at 2liters/min via nasal canula. right groin was prepped with chloroprep then draped in the usual sterile fashion. right radial was prepped with chloroprep then draped in the usual sterile fashion. Physician arrived. Physician scrubbed in. Immediate Pre-Procedure Time Out. Correct Patient: Yes; Correct Procedure: Yes; Correct Site: Yes; Correct Patient Position: Yes; Correct Supplies: Yes; Dried Flammable Prep: Yes; Blood Products Available: N/A;. Lidocaine 1% infiltrated to the right radial. Arterial access obtained. Baseline sample Acquired. HR: 85 BPM. A 5 haitian TIG catheter in over wire. Multiple views taken of left coronary artery. Catheter redirected to the RCA. Multiple views taken of right coronary artery. Catheter removed over the exchange wire. A 5 haitian Angled Pig catheter in over wire. EDP Sample taken: LV 120/21,34; HR: 92 BPM; SpO2: 95%. Pullback taken: LV 118/16,51; AO 120/89(102); Mean: 0mmHg, Peak to Peak: 0mmHg, SEP: 13sec/min; HR: 92 BPM; SpO2: 92%. A TR Band was successful obtaining hemostatsis at the Right Radial artery insertion site. Post Procedure: Pulses reassessed and unchanged. PERRLA. Strong, equal hand progress worker bilaterally. No VTE prophylaxis required. Medication's Wasted: Lidocaine 1% = 1 mL. Medication's Wasted: Nitro = 49.8 mg. Total IV fluids: 33 mL. Post-op diagnosis: CAD. Complications: None. Estimated blood loss: 5mL-10mL. Responsiveness - Normal response to verbal stimuli; alert and oriented, PERRLA. Airway - Unaffected, no intervention required; spontaneous ventilation. Circulation: W/N/L, pulses unchanged. Nausea/Vomiting: No. Procedure completed. Patient transferred by wheelchair to CPRU. Vital chart was stopped. Catheter removed over the exchange wire. Access Site Site: Right Radial artery Sheath Size: 6 Fr Hemostasis Method: TR Band Hemostasis Success: Successful Procedure Medications Start: 7:56 AM Stop: 7:56 AM Medication: Benadryl Amount: 50 mg Route: I.V. Start: 8:00 AM Stop: 8:00 AM Medication: Versed Amount: 1 mg Route: I.V. Start: 8:00 AM Stop: 8:00 AM Medication: Fentanyl Amount: 50 mcg Route: I.V. Start: 8:04 AM Stop: 8:04 AM Medication: Zofran (ondansetron) Amount: 4 mg Route: I.V. Start: 8:07 AM Stop: 8:07 AM Medication: Versed Amount: 1 mg Route: I.V. Start: 8:08 AM Stop: 8:08 AM Medication: Nitrogylcerin Amount: 200 mcg Route: I.A. Start: 8:09 AM Stop: 8:09 AM Medication: Heparin Amount: 5000 units Route: I.V. Start: 8:12 AM Stop: 8:12 AM Medication: Versed 1 mg and Fentanyl 25 mcg Amount: 1 Route: I.V. I, the attending physician, have reviewed and verified all procedure medications. Yes, all medications given per verbal order History/Risk Factors Hypertension: Yes Dyslipidemia: Yes Peripheral Arterial Disease (PAD): No Myocardial Infarction ([place]): No Obesity: No Renal Disease: No Tobacco Use: Former Prior Interventions PCI: No CABG: No Valve Surgery: No Report Signatures Finalized by Kevin Klein MD on 08/06/2022 10:16 AM
--- NOTE | 2022-08-04 11:25 | ECG_ITS ---
[facility] Test Date: 2022-08-04 Pat Name: Bud Romero Department: Room: Gender: Male Group Social Worker: : 1960 Requested By: Felipe Garnett Order Number: [id number] Flori MD: Kevin Klein M.D. Measurements Intervals [place] Rate: 98 P: 36 CA: 178 QRS: -9 QRSD: 210 T: 142 QT: 440 QTc: 563 Interpretive Statements SINUS RHYTHM LEFT BUNDLE BRANCH BLOCK [120+ ms QRS DURATION, 80+ ms Q/S IN V1/V2, 85+ ms R IN I/aVL/V5/V6] No previous ECG available for comparison Electronically Signed On 08-04-2022 17:24:34 CDT by Kevin Klein M.D. [email or web address] [facility] regional medical centerTienda Nube / [email or web address]/[id number] f
--- NOTE | 2022-08-04 11:29 | XR_ITS ---
WS: [id number] EXAMINATION: XR chest 1V portable [id number] REASON FOR EXAM: Chest pain COMPARISON: None available. ORDER DATE: 08/04/2022 11:29 AM TECHNIQUE: A single, portable frontal chest x-ray was obtained. X-RAY FINDINGS: The lungs are clear except for minor discoid atelectasis near the left costophrenic angle. Pleural spaces are clear. No pleural effusions or pneumothorax. Cardiomediastinal silhouette is normal. No evidence for pulmonary edema. Soft tissue and osseous structures are unremarkable. No tubes or lines are present. XR/XR chest 1V portable [id number] IMPRESSION: Minor left basal atelectasis.
--- NOTE | 2022-08-04 11:37 | ED_ITS ---
HPI - Chest Pain General: Chief Complaint: Chest Pain Stated Complaint: sent by jonh b/c might be having mild heart attk Time Seen by Provider: 08/04/22 11:20 Source: patient Mode of arrival: ambulatory History of Present Illness: 61-year-old male who presents to the emergency room with complaint of chest pain. He states that his chest pain intermittently for the last 2 months is worse when he eats better when he does not eat. He does get some associated shortness of breath with the that pain exacerbation occurs only when eating. He is not really particularly been diaphoretic. He has not had a known history of heart disease nor is he previously had any cardiac evaluation. Patient is diabetic, mild hyperlipidemia and hypertension as well. He was seen at his primary care doctor's office today Iggy Pereira had a left bundle branch block which was new compared to a EKG from November 2019. She COVID with both EKGs from his doctor's office. He is having mild chest discomfort now. He is not in any acute distress. MD complaint: chest pain Onset (ago): month(s) (2-3) Timing of current episode: episodic Prior episodes: Yes Onset: during rest Pain location: substernal Pain radiation: none Quality: tightness and aching Exacerbating factors: nothing Associated symptoms: Deny abdominal pain, diaphoresis, dyspnea, fever(s), leg edema, nausea, palpitations, sense of impending doom, syncope or vomiting Treatment prior to arrival: none Review of Systems Const: Denies: fever(s), chills, fatigue, malaise or diaphoresis ENMT: Denies: throat pain, ear or mastoid pain, nasal discharge or nasal congestion Card: Reports: chest pain; Denies: palpitations or syncope Resp: Denies: dyspnea GI: Denies: abdominal pain, nausea or vomiting : Denies: flank pain, dysuria, urinary frequency or urinary urgency Skin/Breast: Denies: rash or pruritus PFSH ED PFSH: Medical History (Updated 08/04/22 @ 16:47 by Felipe Ortiz DO) BPH NOS w ur obs/LUTS Diabetes Hematuria Surgical History (Updated 08/04/22 @ 13:14 by Negrita Webb MD) H/O transurethral resection of prostate (03/2021) S/P decompression of ulnar nerve Family History Mother , 75 Cancer Diabetes Father , 80's No problems noted. Social History Alcohol intake: never Substance/Drug Use: never Marital status: Current occupational status: employed Physical Exam Const: GENERAL APPEARANCE: cooperative and comfortable ORIENTATION/CONSCIOUSNESS: Yes awake, Yes oriented to person, Yes oriented to place and Yes oriented to time HENMT: COMMON NORMALS: normocephalic, atraumatic and hearing grossly normal bilaterally HEAD & SCALP: normocephalic and atraumatic Resp: COMMON NORMALS: normal respiratory effort, No retractions, No use of accessory muscles and clear to auscultation bilaterally AUSCULTATION: clear to auscultation bilaterally Cardio: COMMON NORMALS: regular rate, regular rhythm and No murmurs present (Cardio) RATE: regular rate RHYTHM: regular rhythm GI: COMMON NORMALS: Soft to palpation and No hepatosplenomegaly present AUSCULTATION: Yes normoactive bowel sounds PALPATION: Yes Soft to palpation, No Tenderness to palpation present (GI), No Guarding due to palpation present (GI) and Yes No hepatosplenomegaly present Extremity: COMMON NORMALS: normal to inspection, capillary refill normal, no clubbing, cyanosis or edema, no calf tenderness and no pedal edema Neuro: SENSORIUM/ORIENTATION: Yes oriented to person, Yes oriented to place and Yes oriented to time Skin: COMMON NORMALS: no rashes or lesions noted GENERAL SKIN EXAM: no rashes or lesions noted Course Vital Signs: Vital signs: Vital Signs Pulse Rate 85 08/04/22 15:17 Respiratory Rate 16 08/04/22 15:17 Blood Pressure 108/71 08/04/22 15:17 Pulse Oximetry 92 08/04/22 14:56 Oxygen Delivery Me thod Room Air 08/04/22 14:56 MDM - Chest Pain Medical Decision Making Patient continues mild chest discomfort as he has a new bundle branch block which is new compared to September 2019 is not acutely having pain or symptoms and I describes as a mild discomfort similar to what he had last several months his troponin is elevated and 2-hour delta is positive. We will admit discussed with hospitalist consult pharmacy grad intern. Medical Records I reviewed the patient's medical records. Lab Data I reviewed the patient's lab results. 08/04/22 11:45 08/04/22 11:45 Radiology Impressions Chest X-Ray 08/04/22 11:29 IMPRESSION: Minor left basal atelectasis. Laboratory Results WBC 13.1 10^3/uL (4.0-10.0) H 08/04/22 11:45 RBC 5.50 10^6/uL (4.1-5.3) H 08/04/22 11:45 Hgb 15.8 g/dL (11.7-16.6) 08/04/22 11:45 Hct 49.5 % (42.0-52.0) 08/04/22 11:45 MCV 90.0 fl (80-94) 08/04/22 11:45 MCH 28.7 pg (28.0-34.0) 08/04/22 11:45 MCHC 31.9 g/dL (30.0-36.0) 08/04/22 11:45 RDW 13.4 % (12.1-15.1) 08/04/22 11:45 Plt Count 124 10^3/cmm (130-400) L 08/04/22 11:45 MPV 12.4 fL (7.4-10.4) H 08/04/22 11:45 Neut % (Auto) 54.2 % 08/04/22 11:45 Lymph % (Auto) 40.2 % 08/04/22 11:45 [place] % (Auto) 4.5 % 08/04/22 11:45 Eos % (Auto) 0.5 % 08/04/22 11:45 Baso % (Auto) 0.4 % 08/04/22 11:45 Neut # (Auto) 7.08 10^3/uL (1.8-7.7) 08/04/22 11:45 Lymph # (Auto) 5.3 10^3/uL (0.8-4.8) H 08/04/22 11:45 [place] # (Auto) 0.6 10^3/uL (0.2-0.9) 08/04/22 11:45 Eos # (Auto) 0.1 10^3/uL (0.0-0.8) 08/04/22 11:45 Baso # (Auto) 0.1 10^3/uL (0.0-0.1) 08/04/22 11:45 Nucleated RBC % (auto) 0 % 08/04/22 11:45 Nucleated RBCs # 0.0 /100WBC 08/04/22 11:45 Sodium 137 mmol/L (136-145) 08/04/22 11:45 Potassium 4.6 mmol/L (3.5-5.1) 08/04/22 11:45 Chloride 102 mmol/L (98-107) 08/04/22 11:45 Carbon Dioxide 20 mmol/L (22-29) L 08/04/22 11:45 Anion Gap 19.6 (5-19) H 08/04/22 11:45 BUN 30 mg/dL (8-23) H 08/04/22 11:45 Creatinine 1.0 mg/dL (0.7-1.2) 08/04/22 11:45 GFR Calculation 75.7 mL/min (90-130) L 08/04/22 11:45 Glucose 200 mg/dL (65-115) H 08/04/22 11:45 Calculated Osmolality 296 mOsm/kg (285-295) H 08/04/22 11:45 Calcium 10.2 mg/dL (8.5-10.5) 08/04/22 11:45 Total Bilirubin 0.9 mg/dL (0.15-1.2) 08/04/22 11:45 AST 32 U/L (0-40) 08/04/22 11:45 ALT 51 U/L (0-41) H 08/04/22 11:45 Alkaline Phosphatase 74 U/L (40-130) 08/04/22 11:45 Troponin T Baseline 126 ng/L (0-15) H* 08/04/22 11:45 Troponin T 120 Minute 138.5 ng/L (0-15) H 08/04/22 13:27 Delta Troponin T 12.5 ABS# (0-10) H* 08/04/22 13:27 Total Protein 6.7 g/dL (6.6-8.7) 08/04/22 11:45 Albumin 4.3 g/dL (3.5-5.2) 08/04/22 11:45 Globulin 2.4 g/dL (1.3-4.6) 08/04/22 11:45 Discharge Plan Discharge Patient Disposition: Admitted As Inpatient Admit Provider: Negrita Webb Clinical Impression: Non-ST elevation HI (NSTEMI), Diabetes Condition: Stable Coding Level of Care Code ED Craft Recruiter for Bettina Quinn
[2022-08-04] MEDS: aspirin 81 mg Chew Tablet 324 MG PO (11:42)
[2022-08-04 11:55] LABS: Basophils # 0.1 10^3/uL (0.0-0.1); Basophils % 0.4 %; Eosinophils # 0.1 10^3/uL (0.0-0.8); Eosinophils % 0.5 %; Hematocrit 49.5 % (42.0-52.0); Hemoglobin 15.8 g/dL (11.7-16.6); Lymphocytes # 5.3 10^3/uL (0.8-4.8); Lymphocytes % 40.2 %; Mean Corpuscular HGB Conc 31.9 g/dL (30.0-36.0); Mean Corpuscular Hemoglobin 28.7 pg (28.0-34.0); Mean Platelet Volume 12.4 fL (7.4-10.4); Monocytes # 0.6 10^3/uL (0.2-0.9); Monocytes % 4.5 %; Neutrophils # 7.08 10^3/uL (1.8-7.7); Neutrophils % 54.2 %; Nucleated Red Blood Cells % 0 %; Platelet Count 124 10^3/cmm (130-400); Red Cell Distribution Width 13.4 % (12.1-15.1); White Blood Count 13.1 10^3/uL (4.0-10.0)
[2022-08-04 12:15] LABS: Alanine Aminotransferase 51 U/L (0-41); Albumin Level 4.3 g/dL (3.5-5.2); Alkaline Phosphatase 74 U/L (40-130); Aspartate Amino Transferase 32 U/L (0-40); Blood Urea Nitrogen 30 mg/dL (8-23); Calcium 10.2 mg/dL (8.5-10.5); Carbon Dioxide 20 mmol/L (22-29); Chloride 102 mmol/L (98-107); Globulin 2.4 g/dL (1.3-4.6); Glomerular Filtration Rate 75.7 mL/min (90-130); Glucose 200 mg/dL (65-115); Osmolality Calculated 296 mOsm/kg (285-295); Sodium 137 mmol/L (136-145); Total Bilirubin 0.9 mg/dL (0.15-1.2); Total Protein 6.7 g/dL (6.6-8.7)
[2022-08-04 12:16] LABS: Anion Gap 19.6 (5-19); Potassium 4.6 mmol/L (3.5-5.1)
[2022-08-04 12:20] LABS: Slide Review Slide Review Perform; Troponin(5th) Baseline 126 ng/L (0-15)
[2022-08-04] MEDS: enoxaparin 120 mg/0.8 mL Syringe SUBCUT (12:49)
[2022-08-04] MEDS: nitroglycerin drip 50 MG/250 ML PREMIX IV (12:55)
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
--- NOTE | 2022-08-04 13:30 | ECG_ITS ---
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 Measurements Intervals [place] Rate: 89 P: 44 IA: 209 QRS: -16 QRSD: 205 T: 145 QT: 458 QTc: 558 Interpretive Statements SINUS RHYTHM LEFT BUNDLE BRANCH BLOCK [120+ ms QRS DURATION, 80+ ms Q/S IN V1/V2, 85+ ms R IN I/aVL/V5/V6] Compared to ECG 08/04/2022 11:25:36 No significant changes Electronically Signed On 08-04-2022 17:26:09 CDT by Kevin Klein M.D. [id number]
[2022-08-04 13:52] LABS: Troponin 5 2HR 138.5 ng/L (0-15)
[2022-08-04 13:53] LABS: Troponin 5 2HR Delta 12.5 ABS# (0-10)
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
--- NOTE | 2022-08-04 17:30 | ECG_ITS ---
[facility] Test Date: 2022-08-04 Pat Name: Bud Romero Department: Room: 111 Gender: Male Skin Former: : 1960 Requested By: Felipe Garnett Order Number: [id number] Flori MD: Sara Guadarrama M.D. Measurements Intervals [place] Rate: 84 P: 45 [place]: 210 QRS: -37 QRSD: 201 T: 136 QT: 467 QTc: 554 Interpretive Statements SINUS RHYTHM WITH FIRST DEGREE AV BLOCK LEFT AXIS DEVIATION [QRS AXIS < -30] LEFT BUNDLE BRANCH BLOCK [120+ ms QRS DURATION, 80+ ms Q/S IN V1/V2, 85+ ms R IN I/aVL/V5/V6] Compared to ECG 08/04/2022 13:30:17 First degree AV block now present Left-axis deviation now present Electronically Signed On 08-05-2022 16:30:41 CDT by Sara Guadarrama M.D. [id number]
[2022-08-04] MEDS: ticagrelor 90 mg Tablet 180 MG PO (17:46)
[2022-08-04] MEDS: sodium chloride 0.9% 1,000 ML 100 ML IV (17:46)
[2022-08-04] MEDS: aspirin 325 mg Tablet PO (17:47)
[2022-08-04] MEDS: pantoprazole DR 40 mg Tablet PO (17:51)
[2022-08-04 20:02] LABS: Troponin 5 6HR 170.4 ng/L (0-15); Troponin 5 6HR Delta 44.4 ng/L (0-12)
[2022-08-04 20:54] LABS: Glucose Point of Care 190 mg/dL (70-110)
[2022-08-04 21:53] LABS: Add Urine Microscopic? NO; Charge for UA Resulting for Rev
[2022-08-04 21:58] LABS: Bilirubin Urine Neg (Negative); Blood Urine Neg (Negative); Glucose Urine UA 4+ (Normal); Ketones Urine 1+ (Negative); Leukocyte Esterase Urine Negative (Negative); Nitrate Urine Negative (Negative); Protein Urine Neg (Negative); Urine Appearance Clear (CLEAR); Urine Color Yellow (Yellow); Urobilinogen Urine Norm (Negative); pH Urine 6 (5-7)
[2022-08-05] VITALS (52 sets, daily range): BP systolic 79–126; BP diastolic 53–92; PULSE 75–110; RESP 6–28; TEMP 36.6–36.7; O2SAT 90–95
--- NOTE | 2022-08-05 | USCV_ITS ---
Bud Romero Age: 61 Gender: M : 1960 Exam Date: 08/04/2022 22:46 Ordering Phys: Maikel Hanson MD Technologist: LUPE Exam [place] [facility] [place] Indication: nstemi BP: 108 / 71 HR: 96 Rhythm: Sinus Technical Quality: Adequate MEASUREMENTS (Male / Female) Normal Values 2D ECHO LV Diastolic Diameter PLAX 6.9 cm 4.2 - 5.9 / 3.9 - 5.3 cm LV Systolic Diameter PLAX 6.0 cm IVS Diastolic Thickness 0.9 cm 0.6 - 1.0 / 0.6 - 0.9 cm IVS Systolic Thickness 1.3 cm LVPW Diastolic Thickness 1.1 cm 0.6 - 1.0 / 0.6 - 0.9 cm LVPW Systolic Thickness 1.1 cm LVOT Diameter 2.1 cm LV Ejection Fraction 2D Teich 19.6 % LV Ejection Fraction MOD 2C 6.5 % LV Ejection Fraction 2C AL 6.1 % LA Diameter 4.9 cm LA Width 4.8 cm LA Height 7.0 cm RA Width 3.7 cm RA Height 3.6 cm Aorta at Sinotubular Diameter 2.7 cm IVC Diameter 2.1 cm M-MODE Aortic Annulus Diameter 3.5 cm LA Ao Ratio MM 1.3 MV E Point Septal Separation 2.9 cm DOPPLER AV Peak Velocity 90.0 cm/s LVOT Peak Velocity 87.0 cm/s AV Area Cont Eq vti 3.6 cm squared AV Area Cont Eq pk 3.3 cm squared MV Peak Velocity 155.0 cm/s MV Area PHT 5.9 cm squared MV E' Velocity 77.5 cm/s Mitral E to MV E' Ratio 23.5 Mitral E to LV E' Lateral Ratio 32.7 Mitral E to LV E' Septal Ratio 18.3 TV Peak E Velocity 39.0 cm/s PV Peak Velocity 63.0 cm/s RV Acceleration Time 0.0 s RV Ejection Time 0.2 s RV AcT/ET 0.2 FINDINGS Left Ventricle Left ventricle is severely dilated. LV systolic function is severely reduced with EF of 10 to 15%. Severe global hypokinesis is seen with apical akinesis. Right Ventricle Normal in size and function Right Atrium Grossly normal Left Atrium Severely dilated Mitral Valve Grossly normal. Mild mitral regurgitation. Aortic Valve Structurally normal aortic valve. Trace aortic regurgitation. Tricuspid Valve Trace tricuspid regurgitation. Insufficient TR jet to calculate RVSP Pulmonic Valve Not well visualized Pericardium Normal Aorta Normal in size IVC Appears to be normal CONCLUSIONS Left ventricle is severely dilated. LV systolic function is severely reduced with EF of 10 to 15%. Severe global hypokinesis is seen. Severely dilated left atrium Mild mitral regurgitation Trace aortic regurgitation Trace tricuspid regurgitation No comparison studies are available. Kevin Klein MD (Electronically Signed) Final Date: 05 August 2022 11:28 S
[2022-08-05] MEDS: enoxaparin 120 mg/0.8 mL Syringe SUBCUT (00:52)
[2022-08-05 04:03] LABS: Basophils # 0.1 10^3/uL (0.0-0.1); Basophils % 0.5 %; Eosinophils # 0.1 10^3/uL (0.0-0.8); Hemoglobin 14.2 g/dL (11.7-16.6); Lymphocytes # 5.6 10^3/uL (0.8-4.8); Lymphocytes % 54.2 %; Mean Corpuscular HGB Conc 32.3 g/dL (30.0-36.0); Mean Corpuscular Hemoglobin 29.1 pg (28.0-34.0); Mean Corpuscular Volume 90.2 fl (80-94); Mean Platelet Volume 13.5 fL (7.4-10.4); Monocytes # 0.6 10^3/uL (0.2-0.9); Monocytes % 5.6 %; Neutrophils # 3.98 10^3/uL (1.8-7.7); Neutrophils % 38.3 %; Nucleated Red Blood Cells % 0 %; Platelet Count 147 10^3/cmm (130-400); Red Blood Count 4.88 10^6/uL (4.1-5.3); Red Cell Distribution Width 13.4 % (12.1-15.1); White Blood Count 10.4 10^3/uL (4.0-10.0)
[2022-08-05 04:12] LABS: INR 1.06 (0.8-1.2); Partial Thromboplastin Time 32.9 SECONDS (23.9-36.7)
[2022-08-05 04:22] LABS: Estmated Average Glucose 186; Hemoglobin A1C 8.1 % (4.0-6.0)
[2022-08-05 04:25] LABS: Blood Urea Nitrogen 25 mg/dL (8-23); Calcium 9.3 mg/dL (8.5-10.5); Carbon Dioxide 21 mmol/L (22-29); Chloride 106 mmol/L (98-107); Chol HDL Ratio 6.11 mg/dL (1.0-5.00); Cholesterol 165 mg/dL (0-200); Glomerular Filtration Rate 67.8 mL/min (90-130); Glucose 105 mg/dL (65-115); HDL Cholesterol 27 mg/dL (60-100); LDL Cholesterol Calculated 90 mg/dL (50-129); LDL HDL Ratio 3.33 RATIO (0.00-3.22); NT Pro B Type Natriuretic Pept 2953 pg/mL (0-125); Osmolality Calculated 297 mOsm/kg (285-295); Phosphorus 3.2 mg/dL (2.5-4.5); Sodium 141 mmol/L (136-145); Triglycerides 241 mg/dL (0-150)
[2022-08-05 04:31] LABS: Slide Review Slide Review Perform
--- NOTE | 2022-08-05 07:42 | P.PN_ITS ---
Subjective Subjective: Patient underwent cardiac cath today, CAG showed: Patent left main, LAD: Ostial 95% calcified stenosis LCx: Ostial 90% stenosis,RCA: Mid Chronic total occlusion, patient is being transferred to [facility] for viability testing, and possible CABG. Medications: Medication Review Details: Generic Name Dose Route Start Last Admin Trade Name Arikq PRN Reason Stop Dose Admin Atorvastatin Calci um 40 mg 08/04/22 21:00 08/04/22 20:50 Atorvastatin 40 Mg Tablet PO Not Given BEDTIME ANGELO Enoxaparin Sodium 120 mg 08/05/22 01:00 08/05/22 00:52 Enoxaparin 120 M g/0.8 Ml Syringe SUBCUT 120 mg Q12H ANGELO Administration Nitroglycerin/Dext kody 50 mg in 250 mls @ 0 mls/hr 08/04/22 12:45 08/04/22 12:[address] ip IV 10 mcg/min .Q0M ANGELO 3 mls/hr Administration Protocol Per Protocol Sodium Chloride 1,000 mls @ 100 m ls/hr 08/04/22 15:29 08/05/22 04:57 Sodium Chloride 0.9% IV Infused .Q10H ANGELO Infusion Insulin Human Lisp ro 0 unit 08/04/22 18:00 08/05/22 07:05 Insulin Lispro 1 00 Unit/1 Ml SUBCUT Not Given TIDWM ANGELO Protocol Insulin Human Lisp ro 0 unit 08/04/22 21:00 08/04/22 20:50 Insulin Lispro 1 00 Unit/1 Ml SUBCUT Not Given BEDTIME ANGELO Protocol Pantoprazole Sodiu m 40 mg 08/04/22 17:35 08/04/22 17:[address] 40 Mg Tablet PO 40 mg DAILY ANGELO Administration Vitals/I&O/Wt Last Vital Signs Pulse 86 08/05/22 07:32 Resp 16 08/05/22 07:32 BP 113/68 08/05/22 07:32 Pulse Ox 95 08/05/22 07:32 O2 Del Method Room Air 08/05/22 07:32 08/04/22 08/05/22 08/05/22 22:59 06:59 14:59 Intake Total 1000 / 1000 Output Total 350 / 350 200 / 550 Balance -350 / -350 800 / 450 Weight last 48 hrs Weight 122.016 kg Physical Exam Const: COMMON NORMALS: patient oriented x3 HENMT: COMMON NORMALS: normocephalic and atraumatic HEAD & SCALP: normoc ephalic and atraumatic Resp: COMMON NORMALS: clear to auscultation bilaterally AUSCULTATION: clear to auscultation bilaterally Cardio: COMMON NORMALS: regular rate, regular rhythm, S1 normal heart sound present, S2 normal heart sound present, No gallops present (Cardio), No murmurs present (Cardio), No rub (Cardio) and Peripheral pulses 2+ throughout RATE: regular rate RHYTHM: regular rhythm HEART SOUNDS: S1 normal heart sound present and S2 normal heart sound present PERIPHERAL PULSES: Peripheral pulses 2+ throughout GI: COMMON NORMALS: Normal to inspection, nondistended, normoactive bowel sounds present, Soft to palpation, non-tender, No hepatosplenomegaly present and no masses AUSCULTATION: Yes normoactive bowel sounds PALPATION: Yes Soft to palpation and Yes No hepatosplenomegaly present RECTAL EXAM: Yes deferred Extremity: COMMON NORMALS: no clubbing, cyanosis or edema and no pedal edema Neuro: COMMON NORMALS: patient oriented x3 Data 08/05/22 03:22 08/05/22 03:22 A&P Assessment and plan (1) Non-ST elevation UT (NSTEMI): Present on admission with positive troponin delta at 2 hours. Had unstable angina symptoms over the last month or two as described. No prior history of known CAD, but significant family history of CAD in mother and 2 brothers. Other risks include diabetes, high blood pressure, current bmi and dyslipidemia. Inpatient admission Serial cardiac enzymes, EKGs Cardiology consultation appreciated Cath planned for in the morning Aspirin, brilinta, statin, nitroglycerin drip for now, status post treatment dose lovenox in ED Anticipate initiation of beta blockcade as BP allows Home lisinopril currently help, on at low dose which I anticipate resuming as BP allows at discharge Echo Supportive care otherwise Patient to notify nursing staff of continued or worsening chest pain Plans reviewed and patient given opportunity to ask questions (2) LBBB (left bundle branch block): New finding See above plans (3) Hypertension: Essential hypertension, managed with low dose lisinopril at home Hold home lisinopril currently; anticipate resumption at same dose at discharge due to diabetes as blood pressure tolerates (4) Dyslipidemia: Chronically on fenofibrate Check lipid panel Add statin therapy (5) Diabetes: Chronically on jardiance Check A1c Hold home jardiance presently Insulin if needed Discussed with patient plans for insulin while here (6) BPH NOS w ur obs/LUTS: Doing well s/p TURP in 2021, no longer on medications Monitor for symptoms of concern Plan (7) leukocytosis, currently feel reactive secondary to non-ST elevation UT - monitor (8) borderline platelet count - monitor (9) chronic kidney disease stage II strongly suspected - IV fluids, recheck lab in am VTE prophylaxis: SCDs, got treatment dose lovenox GI Prophylaxis: PPI while here Telemetry: monitoring for arrhythmias in pt with NSTEMI Corley: not currently indicated Line(s): peripheral IV Disposition plan: Home with PCP and cardiology follow up Code Status: FULL Attestations Medical Necessity Statement*: Needs to be in hospital for management of NSTEMI Coding Level of Care Code Acute Code for [facility] Diagnoses Non-ST elevation UT (NSTEMI) I21.4 LBBB (left bundle branch block) I44.7 Hypertension I10 Dyslipidemia E78.5 Diabetes E11.9 BPH NOS w ur obs/LUTS N40.1
--- NOTE | 2022-08-05 08:01 | W.PM.OPSUD ---
Surgery/Procedure H&P Update DATE OF PROCEDURE: August 05, 2022 DATE H&P PERFORMED: 08/04/22 H&P UPDATE INFORMATION: I have reviewed H&P completed within last 30 days, I have examined patient prior to procedure and No changes to prior documentation PREOP DIAGNOSIS: NSTEMI PRIMARY INDICATION FOR PROCEDURE: NSTEMI PLANNED PROCEDURE: Operation Date: 08/05/22 10:00 Proposed Procedures p Cardiac Catheterization(Left) - Kevin Klein MD Possible percutaneous coronary intervention PATIENT REASSESSED PRIOR TO SEDATION, WITH NO CHANGE NOTED: Yes PHYSICAL EXAM: alert, oriented x 3, clear to auscultation bilaterally and regular rate & rhythm AIRWAY EVAL/ANESTHESIA PLAN: normal airway, ASA III, Local Anesthesia, Risks, benefits & alternatives of sedation and/or procedure discussed and Patient agrees to continue as planned ADDITIONAL INFORMATION: Moderate sedation
--- NOTE | 2022-08-05 08:30 | SUR.PHASEI ---
POST CATH NOTE Received patient from phlebotomist lab assistant. Status post cardiac catheterization via the right radial approach. TR Band in place. Small hematoma noted on arrival. Quarter size hematoma noted. Expressed and second band applied. VSS and Assessments per flowsheet. Report to Joselyn on CSU- will return approximately 0900.
[2022-08-05 11:02] LABS: Glucose Point of Care 121 mg/dL (70-110)
--- NOTE | 2022-08-05 11:09 | PM.MISC ---
Miscellaneous Note Purpose of Documentation: Brief Procedure Note Note: Left main artery: Patent LAD: Ostial 95% calcified stenosis LCx: Ostial 90% stenosis RCA: Mid Chronic total occlusion Recommendations: We will transfer patient to tertiary care center for heart team discussion, viability testing and possible CABG. Hold Brilinta Continue nitro gtt
[2022-08-05] MEDS: aspirin 81 mg Chew Tablet PO (11:41)
[2022-08-05] MEDS: fenofibrate 48 mg Tablet PO (11:41)
[2022-08-05] MEDS: pantoprazole DR 40 mg Tablet PO (11:41)
[2022-08-05] MEDS: sodium chloride 0.9% 1,000 ML 100 ML IV (11:42)
[2022-08-05 16:44] LABS: Glucose Point of Care 170 mg/dL (70-110)
[2022-08-05 20:26] LABS: Glucose Point of Care 168 mg/dL (70-110)
[2022-08-05] MEDS: atorvastatin 40 mg Tablet PO (20:55)
[2022-08-06] MEDS: enoxaparin 120 mg/0.8 mL Syringe SUBCUT (00:02)
[2022-08-06 00:07] VITALS: BP 121/89; PULSE 88; RESP 18; O2SAT 91
[2022-08-06 04:53] VITALS: PULSE 85
[2022-08-06] MEDS: fenofibrate 48 mg Tablet PO (06:16)
[2022-08-06 06:18] VITALS: BP 116/83; PULSE 95; RESP 16; O2SAT 93
[2022-08-06 06:22] LABS: Glucose Point of Care 131 mg/dL (70-110)
[2022-08-06 07:52] VITALS: BP 119/87; PULSE 87; RESP 21; O2SAT 93
--- NOTE | 2022-08-06 08:14 | PM.TDS ---
Transfer Summary Providers Date of Admission: 08/04/22 15:29 Date of Discharge/Transfer: 08/06/22 Attending Provider at Admission: Negrita Webb MD Attending Provider at Transfer: Maikel Hanson MD Primary Care Provider: ABI [facility] Transfer Plans: Anticipated date of transfer: 08/06/22. Diagnoses at Discharge Discharge Diagnosis (1) Non-ST elevation [place] (NSTEMI): Status: Acute (2) LBBB (left bundle branch block): Status: Acute (3) Hypertension: Status: Chronic (4) Dyslipidemia: Status: Chronic (5) Diabetes: Status: Chronic (6) BPH NOS w ur obs/LUTS: Status: Chronic Reason for Visit [facility] might be having mild heart attk Hospital Course Hospital Course 61 year old male with PMhx of HTN, DM-2, hypertriglyceridemia, dyslipidemia and BPH. He has been having chest pains on and off pressure like, described as someone sitting on chest retrosternal with radiation to both shoulders. He is a former smoker (started at age 10 and quit about 4 years ago after smoking 1 and 1/2 -2 PPD). He went to his PCP and EKG showed LBBB that was apparently new in 11/2019 and hence was sent to ER. Further lab works showed raised troponin with significant delta.Patient was admitted for the management of NSTEMI, he was kept on ACS protocol, 2D echo showed : Left ventricle is severely dilated. ?LV systolic function is severely reduced with EF of 10 to 15%.?Severe global hypokinesis is seen.?Severely dilated left atrium ?Mild mitral regurgitation,?Trace aortic regurgitation,?Trace tricuspid regurgitation, patient underwent coronary angiogram that showed: Patent left main,LAD: Ostial 95% calcified stenosis, LCx: Ostial 90% stenosis,RCA: Mid Chronic total occlusion.Currently patient is being transferred to [facility] for viability testing and possible CABG. Physical Exam Const: COMMON NORMALS: patient oriented x3 HENMT: COMMON NORMALS: normocephalic and atraumatic HEAD & SCALP: normocephalic and atraumatic Resp: COMMON NORMALS: clear to auscultation bilaterally AUSCULTATION: clear to auscultation bilaterally Cardio: COMMON NORMALS: regular rate, regular rhythm, S1 normal heart sound present, S2 normal heart sound present, No gallops present (Cardio), No murmurs present (Cardio), No rub (Cardio) and Peripheral pulses 2+ throughout RATE: regular rate RHYTHM: regular rhythm HEART SOUNDS: S1 normal heart sound present and S2 normal heart sound present PERIPHERAL PULSES: Peripheral pulses 2+ throughout GI: COMMON NORMALS: Normal to inspection, nondistended, normoactive bowel sounds present, Soft to palpation, non-tender, No hepatosplenomegaly present and no masses AUSCULTATION: Yes normoactive bowel sounds PALPATION: Yes Soft to palpation and Yes No hepatosplenomegaly present RECTAL EXAM: Yes deferred Extremity: COMMON NORMALS: no clubbing, cyanosis or edema and no pedal edema Neuro: COMMON NORMALS: patient oriented x3 TS Data Studies Completed and Pending Pending at discharge Category Date Time Status VASCULAR TECHNICIAN request for service Routine Exams 08/05/22 Taken VASCULAR TECHNICIAN request for service Routine Exams 08/05/22 Taken BMP [Basic Metabolic Panel] Routine Lab 08/06/22 08:13 Ordered CBC Auto Diff [Complete Blood Count w/Auto] Routine Lab 08/06/22 08:13 Ordered Labs from last 24 hours 08/06/22 08/05/22 08/05/22 06:16 20:22 16:39 POC Glucose 131 H 168 H 170 H 08/05/22 10:55 POC Glucose 121 H Completed Studies During Hospitalization Category Date Time Status XR chest 1V portable [id number] Stat Exams 08/04/22 11:29 Completed CV. echo complete* [id number] Routine Ultrasound 08/05/22 Completed Laboratory Last Values WBC 10.4 10^3/uL (4.0-10.0) H 08/05/22 03:22 RBC 4.88 10^6/uL (4.1-5.3) 08/05/22 03:22 Hgb 14.2 g/dL (11.7-16.6) 08/05/22 03:22 Hct 44.0 % (42.0-52.0) 08/05/22 03:22 MCV 90.2 fl (80-94) 08/05/22 03:22 MCH 29.1 pg (28.0-34.0) 08/05/22 03:22 MCHC 32.3 g/dL (30.0-36.0) 08/05/22 03:22 RDW 13.4 % (12.1-15.1) 08/05/22 03:22 Plt Count 147 10^3/cmm (130-400) 08/05/22 03:22 MPV 13.5 fL (7.4-10.4) H 08/05/22 03:22 Neut % (Auto) 38.3 % 08/05/22 03:22 Lymph % (Auto) 54.2 % 08/05/22 03:22 Charlton % (Auto) 5.6 % 08/05/22 03:22 Eos % (Auto) 1.0 % 08/05/22 03:22 Baso % (Auto) 0.5 % 08/05/22 03:22 Neut # (Auto) 3.98 10^3/uL (1.8-7.7) 08/05/22 03:22 Lymph # (Auto) 5.6 10^3/uL (0.8-4.8) H 08/05/22 03:22 Charlton # (Auto) 0.6 10^3/uL (0.2-0.9) 08/05/22 03:22 Eos # (Auto) 0.1 10^3/uL (0.0-0.8) 08/05/22 03:22 Baso # (Auto) 0.1 10^3/uL (0.0-0.1) 08/05/22 03:22 Nucleated RBC % (auto) 0 % 08/05/22 03: Nucleated RBCs # 0.0 /100WBC 08/05/22 03: PT 14.10 SECONDS (12.1-14.9) 08/05/22 03:22 INR 1.06 (0.8-1.2) 08/05/22 03:22 APTT 32.9 SECONDS (23.9-36.7) 08/05/22 03:22 Sodium 141 mmol/L (136-145) 08/05/22 03:22 Potassium 4.0 mmol/L (3.5-5.1) 08/05/22 03: Chloride 106 mmol/L (98-107) 08/05/22 03:22 Carbon Dioxide 21 mmol/L (22-29) L 08/05/22 03:22 Anion Gap 18.0 (5-19) 08/05/22 03:22 BUN 25 mg/dL (8-23) H 08/05/22 03:22 Creatinine 1.1 mg/dL (0.7-1.2) 08/05/22 03:22 GFR Calculation 67.8 mL/min (90-130) L 08/05/22 03:22 Glucose 105 mg/dL (65-115) 08/05/22 03:22 POC Glucose 131 mg/dL (70-110) H 08/06/22 06:16 Estimat Average Glucose 186 08/05/22 03:22 Hemoglobin A1c 8.1 % (4.0-6.0) H 08/05/22 03:22 Calculated Osmolality 297 mOsm/kg (285-295) H 08/05/22 03:22 Calcium 9.3 mg/dL (8.5-10.5) 08/05/22 03:22 Phosphorus 3.2 mg/dL (2.5-4.5) 08/05/22 03:22 Magnesium 2.0 mg/dL (1.7-2.3) 08/05/22 03:22 Total Bilirubin 0.9 mg/dL (0.15-1.2) 08/04/22 11:45 AST 32 U/L (0-40) 08/04/22 11:45 ALT 51 U/L (0-41) H 08/04/22 11:45 Alkaline Phosphatase 74 U/L (40-130) 08/04/22 11:45 Troponin T Baseline 126 ng/L (0-15) H* 08/04/22 11:45 Troponin T 120 Minute 138.5 ng/L (0-15) H 08/04/22 13:27 Delta Troponin T 12.5 ABS# (0-10) H* 08/04/22 13:27 Troponin T Hi Sens 6Hr 170.4 ng/L (0-15) H 08/04/22 19:12 Troponin T Hi Sens 6Hr Delta 44.4 ng/L (0-12) H* 08/04/22 19:12 NT-Pro-B Natriuret Pep 2953 pg/mL (0-125) H 08/05/22 03:22 Total Protein 6.7 g/dL (6.6-8.7) 08/04/22 11:45 Albumin 4.3 g/dL (3.5-5.2) 08/04/22 11:45 Globulin 2.4 g/dL (1.3-4.6) 08/04/22 11:45 Triglycerides 241 mg/dL (0-150) H 08/05/22 03:22 Cholesterol 165 mg/dL (0-200) 08/05/22 03:22 LDL Cholesterol, Calc 90 mg/dL (50-129) 08/05/22 03:22 HDL Cholesterol 27 mg/dL (60-100) L 08/05/22 03:22 LDL/HDL Ratio 3.33 RATIO (0.00-3.22) H 08/05/22 03:22 Cholesterol/HDL Ratio 6.11 mg/dL (1.0-5.00) H 08/05/22 03:22 Urine Color Yellow (Yellow) 08/04/22 21:50 Urine Appearance Clear (CLEAR) 08/04/22 21:50 Urine pH 6 (5-7) 08/04/22 21:50 Ur Specific Conrad 1.020 (1.005-1.030) 08/04/22 21:50 Urine Protein Neg (Negative) 08/04/22 21:50 Urine Glucose (UA) 4+ (Normal) H 08/04/22 21:50 Urine Ketones 1+ (Negative) H 08/04/22 21:50 Urine Blood Neg (Negative) 08/04/22 21:50 Urine Nitrate Negative (Negative) 08/04/22 21:50 Urine Bilirubin Neg (Negative) 08/04/22 21:50 Urine Urobilinogen Norm mg/dL (Negative) 08/04/22 21:50 Ur Leukocyte Esterase Negative (Negative) 08/04/22 21:50 Radiology Impressions Chest X-Ray 08/04/22 11:29 IMPRESSION: Minor left basal atelectasis. Recent Clincial Data Last Vital Signs Temp 98.0 F 08/05/22 19:43 Pulse 87 08/06/22 07:52 Resp 21 H 08/06/22 07:52 BP 119/87 08/06/22 07:52 Pulse Ox 93 08/06/22 07:52 O2 Del Method Room Air 08/06/22 07:52 O2 Flow Rate 2 08/05/22 09:00 Vital Signs Pulse Resp BP Pulse Ox O2 Del Method 08/06/22 06:18 95 16 116/83 93 Room Air 08/06/22 04:53 85 08/06/22 00:07 88 18 121/89 91 Room Air 08/05/22 22:00 89 08/06/22 07:52 87 21 H 119/87 93 Room Air Intake & Output/Weight 08/04/22 08/05/22 08/06/22 08/07/22 06:59 06:59 06:59 06:59 Intake Total 1000 / 1000 2291.85 / 2291.85 Output Total 550 / 550 150 / 150 Balance 450 / 450 2141.85 / 2141.85 Weight 122.016 kg Vitals Last Vital Signs Temp 98.0 F 08/05/22 19:43 Pulse 87 08/06/22 07:52 Resp 21 H 08/06/22 07:52 BP 119/87 08/06/22 07:52 Pulse Ox 93 08/06/22 07:52 O2 Del Method Room Air 08/06/22 07:52 O2 Flow Rate 2 08/05/22 09:00 TS Medications Medications Acetaminophen (Acetaminophen 325 Mg Tablet) 650 mg PO Q6H PRN PRN Reason: Mild/Mod Pain Or Temp >/= 101 Aspirin (Aspirin 81 Mg Chew Tablet) 81 mg PO DAILY [facility] Last Admin: 08/05/22 11:41 Dose: 81 mg Atorvastatin Calcium (Atorvastatin 40 Mg Tablet) 40 mg PO BEDTIME [facility] Last Admin: 08/05/22 20:55 Dose: 40 mg Bisacodyl (Bisacodyl 5 Mg Tablet) 10 mg PO DAILY PRN; Protocol PRN Reason: Constipation (see protocol) Calcium Carbonate (Calcium Carbonate 500 Mg Chew Tablet) 1,000 mg PO Q4H PRN PRN Reason: DYSPEPSI Dextrose (Dextrose 50% Syringe 50 Ml) 50 ml IVP PRN PRN; Protocol PRN Reason: hypoglycemia protocol Dextrose (Dextrose 50% Syringe 50 Ml) 25 ml IVP ONCE PRN; Protocol PRN Reason: hypoglycemia protocol Enoxaparin Sodium (Enoxaparin 120 Mg/0.8 Ml Syringe) 120 mg SUBCUT Q12H [facility] Last Admin: 08/06/22 00:02 Dose: 120 mg Fenofibrate (Fenofibrate 48 Mg Tablet) 48 mg PO QAM [facility] Last Admin: 08/06/22 06:16 Dose: 48 mg Glucagon (Glucagon 1 Mg/Ml Inj 1 Ml) 1 mg IM ONCE PRN; Protocol PRN Reason: Adult Acute Hypoglycemia Prot. Nitroglycerin/Dextrose (Nitroglycerin Drip) 50 mg in 250 mls @ 0 mls/hr IV .Q0M ANGELO; Protocol Last Titration: 08/05/22 20:52 Dose: Infused Dextrose (D5w) 500 mls @ 100 mls/hr IV ONCE PRN; Protocol PRN Reason: Adult Acute Hypoglycemia Prot Insulin Human Lispro (Insulin Lispro 100 Unit/1 Ml) 0 unit SUBCUT TIDWM ANGELO; Protocol Last Admin: 08/05/22 17:19 Dose: Not Given Insulin Human Lispro (Insulin Lispro 100 Unit/1 Ml) 0 unit SUBCUT BEDTIME ANGELO; Protocol Last Admin: 08/05/22 20:52 Dose: Not Given Morphine Sulfate (Morphine 4 Mg/Ml Sdv 1 Ml) 2 mg IVP Q4H PRN PRN Reason: SEVERE PAIN Ondansetron HCl (Ondansetron 2 Mg/Ml Sdv 2 Ml) 4 mg IVP Q6H PRN PRN Reason: NAUSEA AND VOMITING Pantoprazole Sodium (Pantoprazole Dr 40 Mg Tablet) 40 mg PO DAILY [facility] Last Admin: 08/05/22 11:41 Dose: 40 mg Ticagrelor (Ticagrelor 90 Mg Tablet) 90 mg PO BID ANGELO Discontinued Medications Aspirin (Aspirin 81 Mg Chew Tablet) 324 mg PO ONCE ONE Stop: 08/04/22 11:30 Last Admin: 08/04/22 11:42 Dose: 324 mg Aspirin (Aspirin 325 Mg Tablet) 325 mg PO ONCE ONE Stop: 08/04/22 17:08 Last Admin: 08/04/22 17:47 Dose: 325 mg Diphenhydramine HCl (Diphenhydramine 50 Mg Capsule) 50 mg PO ONCE ONE Stop: 08/05/22 09:01 Last Admin: 08/05/22 08:56 Dose: Not Given Diphenhydramine HCl (Diphenhydramine 50 Mg/Ml Sdv 1ml) Confirm Administered Dose 50 mg .ROUTE .STK-MED ONE Stop: 08/05/22 07:51 Enoxaparin Sodium (Enoxaparin 120 Mg/0.8 Ml Syringe) 120 mg SUBCUT ONCE ONE Stop: 08/04/22 12:45 Last Admin: 08/04/22 12:49 Dose: 120 mg Fentanyl (Fentanyl 50 Mcg/Ml Inj 2ml) Confirm Administered Dose 100 mcg .ROUTE .STK-MED ONE Stop: 08/05/22 07:32 Heparin Sodium (Porcine) (Heparin 5,000 Unit/Ml Inj 1 Ml) Confirm Administered Dose 5,000 unit .ROUTE .STK-MED ONE Stop: 08/05/22 07:32 Sodium Chloride (Sodium Chloride 0.9%) 1,000 mls @ 100 mls/hr IV .Q10H ANGELO Last Infusion: 08/05/22 20:52 Dose: Infused Sodium Chloride (Sodium Chloride 0.9%) 1,000 mls @ 50 mls/hr IV .Q20H ONE Stop: 08/06/22 04:59 Last Admin: 08/05/22 11:41 Dose: Not Given Lidocaine HCl (Xylocaine) Confirm Administered Dose 3 mls @ as directed .ROUTE .STK-MED ONE Stop: 08/05/22 07:32 Sodium Chloride (Sodium Chloride 0.9%) Confirm Administered Dose 1,000 mls @ as directed .ROUTE .STK-MED ONE Stop: 08/05/22 07:53 Midazolam HCl (Midazolam 1 Mg/Ml Inj 2 Ml) Confirm Administered Dose 2 mg .ROUTE .STK-MED ONE Stop: 08/05/22 07:32 Midazolam HCl (Midazolam 1 Mg/Ml Inj 2 Ml) Confirm Administered Dose 2 mg .ROUTE .STK-MED ONE Stop: 08/05/22 08:10 Nitroglycerin (Nitroglycerin 5 Mg/Ml Sdv 10 Ml) Confirm Administered Dose 50 mg .ROUTE .STK-MED ONE Stop: 08/05/22 07:33 Ondansetron HCl (Ondansetron 2 Mg/Ml Sdv 2 Ml) Confirm Administered Dose 4 mg .ROUTE .STK-MED ONE Stop: 08/05/22 08:03 Ticagrelor (Ticagrelor 90 Mg Tablet) 180 mg PO ONCE ONE Stop: 08/04/22 17:06 Last Admin: 08/04/22 17:46 Dose: 180 mg Allergies No Known Allergies Allergy (Verified 08/04/22 11:29) Home Medications acetaminophen 650 mg tablet,extended release (Tylenol 8 Hour) 1,300 mg PO Q6H PRN Pain 08/04/22 [History Confirmed 08/04/22] empagliflozin 25 mg tablet (Jardiance) 25 mg PO QAM 08/04/22 [History Confirmed 08/04/22] fenofibrate nanocrystallized 48 mg tablet 48 mg PO QAM 08/04/22 [History Confirmed 08/04/22] lisinopril 2.5 mg tablet 2.5 mg PO QAM 08/04/22 [History Confirmed 08/04/22] Discharge Plan Discharge Patient Disposition: Home Condition: Stable Prescriptions: Continued Tylenol 8 Hour 650 mg Tablet Extended Release 1,300 mg PO Q6H PRN (Reason: Pain) lisinopril 2.5 mg tablet 2.5 mg PO QAM fenofibrate nanocrystallized 48 mg tablet 48 mg PO QAM Jardiance 25 mg tablet 25 mg PO QAM Referrals: Martine Wilson FNP [Primary Care Provider] - Patient Instructions: Opioid Safety Transfer Attestations Time Spent in Transfer Care: less than 30 min Quality Metrics Clinical Quality Measures [ No reported AMI, CVA or VTE this stay] Coding Level of Care Code Acute Code for [facility] Diagnoses Non-ST elevation [place] (NSTEMI) I21.4 LBBB (left bundle branch block) I44.7 Hypertension I10 Dyslipidemia E78.5 Diabetes E11.9 BPH NOS w ur obs/LUTS N40.1
[2022-08-06 09:02] LABS: Basophils # 0.1 10^3/uL (0.0-0.1); Basophils % 0.5 %; Eosinophils # 0.2 10^3/uL (0.0-0.8); Eosinophils % 1.6 %; Hematocrit 48.2 % (42.0-52.0); Lymphocytes # 4.4 10^3/uL (0.8-4.8); Lymphocytes % 43.2 %; Mean Corpuscular HGB Conc 31.1 g/dL (30.0-36.0); Mean Corpuscular Hemoglobin 28.7 pg (28.0-34.0); Mean Corpuscular Volume 92.3 fl (80-94); Mean Platelet Volume 13.1 fL (7.4-10.4); Monocytes # 0.6 10^3/uL (0.2-0.9); Monocytes % 5.7 %; Neutrophils # 4.97 10^3/uL (1.8-7.7); Neutrophils % 48.8 %; Nucleated Red Blood Cells % 0 %; Platelet Count 148 10^3/cmm (130-400); Red Blood Count 5.22 10^6/uL (4.1-5.3); Red Cell Distribution Width 13.5 % (12.1-15.1); White Blood Count 10.2 10^3/uL (4.0-10.0)
[2022-08-06] MEDS: aspirin 81 mg Chew Tablet PO (09:10)
[2022-08-06] MEDS: pantoprazole DR 40 mg Tablet PO (09:10)
[2022-08-06 09:22] LABS: Anion Gap 18.2 (5-19); Blood Urea Nitrogen 19 mg/dL (8-23); Calcium 9.4 mg/dL (8.5-10.5); Carbon Dioxide 19 mmol/L (22-29); Chloride 102 mmol/L (98-107); Glomerular Filtration Rate 85.5 mL/min (90-130); Glucose 203 mg/dL (65-115); Osmolality Calculated 288 mOsm/kg (285-295); Potassium 4.2 mmol/L (3.5-5.1); Sodium 135 mmol/L (136-145)
[2022-08-06 09:43] LABS: Slide Review Slide Review Perform
--- NOTE | 2022-08-06 10:37 | P.PN_ITS ---
Subjective Subjective: s/p LHC yesterday via R radial. He was found to have ostial LAD and LCx lesions. Medications: Reviewed: Yes Vitals/I&O/Wt Last Vital Signs Temp 98.0 F 08/05/22 19:43 Pulse 87 08/06/22 07:52 Resp 21 H 08/06/22 07:52 BP 119/87 08/06/22 07:52 Pulse Ox 93 08/06/22 07:52 O2 Del Method Room Air 08/06/22 07:52 O2 Flow Rate 2 08/05/22 09:00 08/05/22 08/06/22 08/06/22 22:59 06:59 14:59 Intake Total 1455.85 / 1931.85 360 / 2291.85 120 / 120 Output Total 150 / 150 Balance 1305.85 / 1781.85 360 / 2141.85 120 / 120 Weight last 48 hrs Weight 269 lb Physical Exam Const: COMMON NORMALS: no acute distress, patient oriented x3 and alert GENERAL APPEARANCE: cooperative, comfortable, well kempt and well hydrated HENMT: COMMON NORMALS: hearing grossly normal bilaterally, external ears normal and moist oral mucous membranes FACE & SINUS: normal facial exam NOSE: Normal septum present and No nasal discharge present EXTERNAL EAR: Yes external ears normal MOUTH: lip normal Eye: COMMON NORMALS: EOMs intact bilaterally and no scleral icterus GENERAL EYE: appearance normal, both eyes and all related structures ALIGNMENT: Yes alignment normal Neck/C-Spine: COMMON NORMALS: supple and no JVD GENERAL: Yes normal visual inspection and Yes trachea midline CAROTIDS: Yes normal carotid upstroke Chest: COMMONS NORMALS: normal inspection of the chest and normal palpation of entire chest wall CHEST: Yes Symmetrical chest wall rise and No tenderness Resp: COMMON NORMALS: clear to auscultation bilaterally EFFORT & INSPECTION: Yes able to speak in complete sentences, No tachypneic, No respiratory distress, No pursed lip breathing, No labored and No Actively coughing AUSCULTATION: clear to auscultation bilaterally, no crackles, no rales, no rhonchi and no wheezes Cardio: COMMON NORMALS: no JVD, regular rate, regular rhythm, S1 normal heart sound present, S2 normal heart sound present and Peripheral pulses 2+ throughout PALPATION: normal PMI RATE: regular rate RHYTHM: regular rhythm HEART SOUNDS: S1 normal heart sound present, S2 normal heart sound present and no murmurs BRUITS: no carotid bruits PERIPHERAL PULSES: Peripheral pulses 2+ throughout, radial pulses present, posterior tibial pulses present and dorsalis pedis present GI: COMMON NORMALS: Soft to palpation AUSCULTATION: Yes normoactive bowel sounds PALPATION: Yes Soft to palpation, No Tenderness to palpation present (GI), No Guarding due to palpation present (GI) and No Rigid due to palpation Extremity: GENERAL: No cyanosis, Yes edema and No pallor Neuro: COMMON NORMALS: patient oriented x3, CN's II-XII intact bilaterally and no focal motor deficits SENSORIUM/ORIENTATION: Yes alert Psych: COMMON NORMALS: Normal thought process present and speech normal APPEARANCE: Yes well kempt SPEECH: Yes normal speech MOOD & AFFECT: Yes euthymic mood THOUGHT PROCESS: Normal thought process present THOUGHT CONTENT: Yes Normal thought content present Data 08/06/22 08:52 08/06/22 08:52 A&P Assessment and plan (1) Non-ST elevation ND (NSTEMI): Troponin 126-->139-->170 continue ASA, statin, lovenox and NTG gtt -s/p [facility] and was found to have multivessel CAD (2) Multiple vessel coronary artery disease: Plan to transfer to tertiary center -Plan for viability study and decision for CABG based on that. -Brilinta D/C ed -continue ASA, lipitor and lovenox -Nitro gtt was discontinued somehow even though the plan was to continue it. -Patient denies any CP at the time of exam. (3) Ischemic cardiomyopathy: (4) LBBB (left bundle branch block): (5) Hypertension: (6) Dyslipidemia: (7) Diabetes: Plan Obesity Attestations Medical Necessity Statement*: awaiting a bed to be transfered for CABG. Time Spent in Patient Care: 16 - 35 minutes Coding Level of Care Code 75398 Diagnoses Non-ST elevation ND (NSTEMI) I21.4 Multiple vessel coronary artery disease I25.10 Ischemic cardiomyopathy I25.5 LBBB (left bundle branch block) I44.7 Hypertension I10 Dyslipidemia E78.5 Diabetes E11.9
[2022-08-06 11:26] LABS: Glucose Point of Care 159 mg/dL (70-110)
[2022-08-06 11:57] VITALS: BP 119/87; PULSE 87; RESP 18; O2SAT 93
--- NOTE | 2022-08-06 11:59 | PC.NURSE ---
Patient transferred to [facility] for surgical intervention. Report given to Evert Dunham rn at [facility]. Patient left with EMT via ambulance at 11:50, with all personal belongings. Vitals WNL. A&Ox3. Daughter called and updated on transfer.
== END 2022-08-06 11:50 | disposition short-term general hospital (02) | DRG 281 ==
LOC: ER 11:50 → CSU 15:44
PROVIDERS: Internal Medicine; Admitting Provider Hospitalist; Emergency Provider Family Medicine; PCP Registered Nurse; Visit Provider Internal Medicine
DX: I21.4 Non-ST elevation (NSTEMI) myocardial infarction (principal); N13.8 Other obstructive and reflux uropathy; N18.2 Chronic kidney disease, stage 2 (mild); I25.82 Chronic total occlusion of coronary artery; I25.110 Atherosclerotic heart disease of native coronary artery with unstable angina pectoris; I25.84 Coronary atherosclerosis due to calcified coronary lesion; I12.9 Hypertensive chronic kidney disease with stage 1 through stage 4 chronic kidney disease, or unspecified chronic kidney disease; Z87.891 Personal history of nicotine dependence; E11.22 Type 2 diabetes mellitus with diabetic chronic kidney disease; Z79.4 Long term (current) use of insulin; E78.5 Hyperlipidemia, unspecified; N40.1 Benign prostatic hyperplasia with lower urinary tract symptoms; E78.1 Pure hyperglyceridemia; I25.5 Ischemic cardiomyopathy; I44.7 Left bundle-branch block, unspecified; Z82.49 Family history of ischemic heart disease and other diseases of the circulatory system
CPT/HCPCS: 36415; 36416; 71045; 80048; 80053; 80061; 81003; 82962; 83036; 83735; 83880; 84100; 84484; 85025; 85610; 85730; 93005; 93306; 93458; 96372; 96374; 96376; 99152; 99153; 99285; C1769; C1887; C1894; J1200; J1644; J1650; J2250; J2405; J3010; J3490; J7030; Q9967

== ENCOUNTER 2022-09-29 13:17 | Outpatient (CLI) | payer BC, MEDICAID, SELFPAY ==
--- NOTE | 2022-09-29 13:45 | USCV_ITS ---
Bud Romero Age: 62 Gender: M : 1960 Exam Date: 09/29/2022 13:32 Ordering Phys: Allan Elizabeth MD Technologist: Gauri Darby [place] [facility] [place] Indication: ischemic cardiomyopathy, CAD, BP: 119 / 87 HR: 77 Rhythm: Other Technical Quality: Adequate MEASUREMENTS (Male / Female) Normal Values 2D ECHO LV Diastolic Diameter PLAX 8.5 cm 4.2 - 5.9 / 3.9 - 5.3 cm LV Systolic Diameter PLAX 8.2 cm IVS Diastolic Thickness 1.3 cm 0.6 - 1.0 / 0.6 - 0.9 cm IVS Systolic Thickness 0.7 cm LVPW Diastolic Thickness 0.8 cm 0.6 - 1.0 / 0.6 - 0.9 cm LVPW Systolic Thickness 1.3 cm LVOT Diameter 2.2 cm LV Ejection Fraction 2D Teich 8.4 % LV Ejection Fraction MOD 2C 6.7 % LV Ejection Fraction 2C AL 7.3 % LA Diameter 3.6 cm LA Width 4.6 cm LA Height 5.6 cm RA Width 3.4 cm RA Height 3.1 cm Aorta at Sinotubular Diameter 2.9 cm IVC Diameter 2.1 cm M-MODE Aortic Annulus Diameter 3.0 cm LA Ao Ratio MM 1.2 MV E Point Septal Separation 5.7 cm DOPPLER AV Peak Velocity 122.7 cm/s LVOT Peak Velocity 101.0 cm/s AV Area Cont Eq vti 2.6 cm squared AV Area Cont Eq pk 3.0 cm squared MV Peak Velocity 77.0 cm/s MV Area PHT 5.0 cm squared Mitral E to A Ratio 1.2 MV E' Velocity 44.5 cm/s Mitral E to MV E' Ratio 29.7 Mitral E to LV E' Lateral Ratio 31.9 Mitral E to LV E' Septal Ratio 27.8 TR Peak Velocity 205.0 cm/s TR Peak Gradient 16.8 mmHg Right Atrial Pressure 5.0 mmHg Pulmonary Artery Systolic Pressu 21.8 mmHg PV Peak Velocity 84.0 cm/s RV Acceleration Time 0.1 s RV Ejection Time 0.2 s RV AcT/ET 0.6 FINDINGS Left Ventricle Left ventricle is severely dilated. LV systolic function is severely reduced with EF of 5 to 10%. Global severe hypokinesis. Right Ventricle Grossly RV function is mildly reduced Right Atrium Normal Left Atrium Normal Mitral Valve Grossly normal. Moderate mitral regurgitation. Aortic Valve Grossly normal. No significant stenosis or regurgitation. Tricuspid Valve Mild tricuspid regurgitation. Insufficient TR jet to calculate RVSP. Pulmonic Valve Not well visualized Pericardium Normal Aorta Normal in size IVC Dilated CONCLUSIONS Left ventricle is severely dilated. LV systolic function is severely reduced with EF of 5 to 10%. Grossly RV function is mildly reduced Moderate mitral regurgitation Mild tricuspid regurgitation IVC is dilated Compared to prior echocardiogram from 08/04/2022, no significant changes are seen Kevin Klein MD (Electronically Signed) Final Date: 29 September 2022 18:43 S
== END 2022-09-29 13:18 | disposition home or self-care (01) ==
PROVIDERS: PCP Registered Nurse; Visit Provider Thoracic Surgery (Cardiothoracic Vascular Surgery)
DX: I20.0 Unstable angina (principal); I42.9 Cardiomyopathy, unspecified; I08.1 Rheumatic disorders of both mitral and tricuspid valves
CPT/HCPCS: 93306

== ENCOUNTER 2023-02-18 11:23 | Outpatient (CLI) | payer BC, MEDICAID, SELFPAY ==
[2023-02-18 12:41] LABS: Basophils # 0.1 10^3/uL (0.0-0.1); Basophils % 0.7 %; Eosinophils # 0.2 10^3/uL (0.0-0.8); Eosinophils % 1.7 %; Hematocrit 34.2 % (37-53); Lymphocytes # 3.8 10^3/uL (0.8-4.8); Lymphocytes % 38.3 %; Mean Corpuscular HGB Conc 31.3 g/dL (30-55); Mean Corpuscular Hemoglobin 28.8 pg (27-33); Mean Corpuscular Volume 92.2 fl (82-101); Mean Platelet Volume 12.7 fL (7.4-10.4); Monocytes # 0.5 10^3/uL (0.2-0.9); Monocytes % 4.6 %; Neutrophils # 5.38 10^3/uL (1.8-7.7); Neutrophils % 54.4 %; Nucleated Red Blood Cells % 0 %; Platelet Count 220 10^3/cmm (157-399); Red Blood Count 3.71 10^6/uL (3.85-5.65); Red Cell Distribution Width 15.4 % (12.1-15.1); White Blood Count 9.88 10^3/uL (3.29-11.43)
[2023-02-18 12:55] LABS: INR 1.27 (0.8-1.2)
[2023-02-18 13:05] LABS: Alanine Aminotransferase 14 U/L (0-41); Albumin Level 3.5 g/dL (3.5-5.2); Alkaline Phosphatase 84 U/L (40-130); Aspartate Amino Transferase 19 U/L (0-40); Blood Urea Nitrogen 20 mg/dL (8-23); Calcium 9.1 mg/dL (8.5-10.5); Carbon Dioxide 22 mmol/L (22-29); Chloride 105 mmol/L (98-107); Globulin 2.8 g/dL (1.3-4.6); Glomerular Filtration Rate 97.6 mL/min (90-130); Glucose 142 mg/dL (65-115); Lactate Dehydrogenase 285 U/L (135-225); Osmolality Calculated 293 mOsm/kg (285-295); Sodium 139 mmol/L (136-145); Total Bilirubin 0.6 mg/dL (0.15-1.2); Total Protein 6.3 g/dL (6.6-8.7)
== END 2023-02-18 11:24 | disposition home or self-care (01) ==
LOC: LAB 11:27
PROVIDERS: PCP Registered Nurse; Visit Provider Internal Medicine
DX: Z95.811 Presence of heart assist device (principal); Z79.01 Long term (current) use of anticoagulants
CPT/HCPCS: 80053; 83615; 85025; 85610

== ENCOUNTER 2023-02-25 09:36 | Outpatient (CLI) | payer BC, MEDICAID, SELFPAY ==
[2023-02-25 10:16] LABS: Basophils # 0.1 10^3/uL (0.0-0.1); Basophils % 0.6 %; Eosinophils # 0.2 10^3/uL (0.0-0.8); Eosinophils % 2.5 %; Lymphocytes # 3.6 10^3/uL (0.8-4.8); Lymphocytes % 42.9 %; Mean Corpuscular HGB Conc 30.9 g/dL (30-55); Mean Corpuscular Hemoglobin 28.9 pg (27-33); Mean Corpuscular Volume 93.5 fl (82-101); Monocytes # 0.4 10^3/uL (0.2-0.9); Monocytes % 4.9 %; Neutrophils # 4.11 10^3/uL (1.8-7.7); Neutrophils % 48.9 %; Nucleated Red Blood Cells % 0 %; Platelet Count 170 10^3/cmm (157-399); Red Blood Count 3.53 10^6/uL (3.85-5.65); Red Cell Distribution Width 15.2 % (12.1-15.1)
[2023-02-25 10:30] LABS: INR 1.11 (0.8-1.2)
[2023-02-25 10:33] LABS: Alanine Aminotransferase 13 U/L (0-41); Albumin Level 3.6 g/dL (3.5-5.2); Alkaline Phosphatase 79 U/L (40-130); Anion Gap 13.9 (5-19); Aspartate Amino Transferase 20 U/L (0-40); Blood Urea Nitrogen 29 mg/dL (8-23); Calcium 9.4 mg/dL (8.5-10.5); Carbon Dioxide 25 mmol/L (22-29); Chloride 105 mmol/L (98-107); Globulin 2.7 g/dL (1.3-4.6); Glomerular Filtration Rate 75.5 mL/min (90-130); Glucose 142 mg/dL (65-115); Lactate Dehydrogenase 186 U/L (135-225); Osmolality Calculated 298 mOsm/kg (285-295); Potassium 3.9 mmol/L (3.5-5.1); Sodium 140 mmol/L (136-145); Total Bilirubin 0.7 mg/dL (0.15-1.2); Total Protein 6.3 g/dL (6.6-8.7)
== END 2023-02-25 09:37 | disposition home or self-care (01) ==
PROVIDERS: PCP Registered Nurse; Visit Provider Internal Medicine
DX: Z01.89 Encounter for other specified special examinations (principal)
CPT/HCPCS: 36415; 80053; 83615; 85025; 85610

== ENCOUNTER 2023-03-11 09:37 | Outpatient (CLI) | payer BC, MEDICAID, SELFPAY ==
[2023-03-11 10:17] LABS: Basophils # 0.1 10^3/uL (0.0-0.1); Basophils % 0.6 %; Eosinophils # 0.3 10^3/uL (0.0-0.8); Eosinophils % 3.2 %; Hematocrit 35.2 % (37-53); Lymphocytes # 3.9 10^3/uL (0.8-4.8); Lymphocytes % 39.7 %; Mean Corpuscular HGB Conc 31.5 g/dL (30-55); Mean Corpuscular Hemoglobin 29.1 pg (27-33); Mean Corpuscular Volume 92.4 fl (82-101); Mean Platelet Volume 12.4 fL (7.4-10.4); Monocytes # 0.5 10^3/uL (0.2-0.9); Monocytes % 4.6 %; Neutrophils % 51.7 %; Nucleated Red Blood Cells % 0 %; Platelet Count 163 10^3/cmm (157-399); Red Blood Count 3.81 10^6/uL (3.85-5.65); Red Cell Distribution Width 14.9 % (12.1-15.1); White Blood Count 9.69 10^3/uL (3.29-11.43)
[2023-03-11 10:34] LABS: Alanine Aminotransferase 18 U/L (0-41); Albumin Level 3.8 g/dL (3.5-5.2); Alkaline Phosphatase 91 U/L (40-130); Anion Gap 16.4 (5-19); Aspartate Amino Transferase 22 U/L (0-40); Blood Urea Nitrogen 27 mg/dL (8-23); Calcium 9.4 mg/dL (8.5-10.5); Carbon Dioxide 24 mmol/L (22-29); Chloride 102 mmol/L (98-107); Globulin 2.8 g/dL (1.3-4.6); Glomerular Filtration Rate 67.6 mL/min (90-130); Glucose 181 mg/dL (65-115); Lactate Dehydrogenase 205 U/L (135-225); Osmolality Calculated 296 mOsm/kg (285-295); Potassium 4.4 mmol/L (3.5-5.1); Sodium 138 mmol/L (136-145); Total Bilirubin 0.5 mg/dL (0.15-1.2); Total Protein 6.6 g/dL (6.6-8.7)
== END 2023-03-11 09:38 | disposition home or self-care (01) ==
LOC: LAB 09:44
PROVIDERS: PCP Registered Nurse; Visit Provider Internal Medicine
DX: Z79.01 Long term (current) use of anticoagulants (principal); Z95.811 Presence of heart assist device
CPT/HCPCS: 36415; 80053; 83615; 85025; 85610

== ENCOUNTER 2023-03-25 08:51 | Outpatient (CLI) | payer BC, MEDICAID, SELFPAY ==
[2023-03-25 09:49] LABS: Basophils # 0.1 10^3/uL (0.0-0.1); Basophils % 0.7 %; Eosinophils # 0.3 10^3/uL (0.0-0.8); Eosinophils % 3.3 %; Hematocrit 41.1 % (37-53); Lymphocytes # 3.5 10^3/uL (0.8-4.8); Lymphocytes % 36.5 %; Mean Corpuscular HGB Conc 31.4 g/dL (30-55); Mean Corpuscular Hemoglobin 28.1 pg (27-33); Mean Corpuscular Volume 89.5 fl (82-101); Mean Platelet Volume 12.6 fL (7.4-10.4); Monocytes # 0.7 10^3/uL (0.2-0.9); Monocytes % 6.7 %; Neutrophils # 5.11 10^3/uL (1.8-7.7); Neutrophils % 52.6 %; Nucleated Red Blood Cells % 0 %; Platelet Count 196 10^3/cmm (157-399); Red Blood Count 4.59 10^6/uL (3.85-5.65); Red Cell Distribution Width 14.1 % (12.1-15.1); White Blood Count 9.71 10^3/uL (3.29-11.43)
[2023-03-25 10:01] LABS: INR 1.26 (0.8-1.2)
[2023-03-25 10:08] LABS: Alanine Aminotransferase 22 U/L (0-41); Albumin Level 4.1 g/dL (3.5-5.2); Alkaline Phosphatase 99 U/L (40-130); Anion Gap 16.1 (5-19); Aspartate Amino Transferase 20 U/L (0-40); Blood Urea Nitrogen 29 mg/dL (8-23); Calcium 9.7 mg/dL (8.5-10.5); Carbon Dioxide 25 mmol/L (22-29); Chloride 100 mmol/L (98-107); Globulin 3.3 g/dL (1.3-4.6); Glomerular Filtration Rate 67.6 mL/min (90-130); Glucose 131 mg/dL (65-115); Lactate Dehydrogenase 166 U/L (135-225); Osmolality Calculated 292 mOsm/kg (285-295); Potassium 4.1 mmol/L (3.5-5.1); Sodium 137 mmol/L (136-145); Total Bilirubin 0.5 mg/dL (0.15-1.2); Total Protein 7.4 g/dL (6.6-8.7)
== END 2023-03-25 08:52 | disposition home or self-care (01) ==
LOC: LAB 08:56
PROVIDERS: PCP Registered Nurse; Visit Provider Internal Medicine
DX: Z79.01 Long term (current) use of anticoagulants (principal); Z95.811 Presence of heart assist device
CPT/HCPCS: 36415; 80053; 83615; 85025; 85610

== ENCOUNTER 2023-03-30 08:39 | Outpatient (CLI) | payer BC, MEDICAID, SELFPAY ==
[2023-03-30 09:09] LABS: Basophils # 0.1 10^3/uL (0.0-0.1); Basophils % 0.6 %; Eosinophils # 0.2 10^3/uL (0.0-0.8); Eosinophils % 2.4 %; Hematocrit 38.4 % (37-53); Lymphocytes # 2.6 10^3/uL (0.8-4.8); Lymphocytes % 25.2 %; Mean Corpuscular HGB Conc 31.5 g/dL (30-55); Mean Corpuscular Hemoglobin 28.5 pg (27-33); Mean Corpuscular Volume 90.4 fl (82-101); Mean Platelet Volume 12.4 fL (7.4-10.4); Monocytes # 0.7 10^3/uL (0.2-0.9); Monocytes % 7.3 %; Neutrophils # 6.55 10^3/uL (1.8-7.7); Neutrophils % 64.3 %; Nucleated Red Blood Cells % 0 %; Platelet Count 195 10^3/cmm (157-399); Red Blood Count 4.25 10^6/uL (3.85-5.65); Red Cell Distribution Width 14.1 % (12.1-15.1); White Blood Count 10.17 10^3/uL (3.29-11.43)
[2023-03-30 09:27] LABS: INR 1.99 (0.8-1.2)
[2023-03-30 09:33] LABS: Alanine Aminotransferase 19 U/L (0-41); Albumin Level 3.8 g/dL (3.5-5.2); Alkaline Phosphatase 91 U/L (40-130); Anion Gap 15.3 (5-19); Aspartate Amino Transferase 19 U/L (0-40); Blood Urea Nitrogen 30 mg/dL (8-23); Calcium 8.9 mg/dL (8.5-10.5); Carbon Dioxide 24 mmol/L (22-29); Chloride 98 mmol/L (98-107); Globulin 3.2 g/dL (1.3-4.6); Glomerular Filtration Rate 67.6 mL/min (90-130); Glucose 140 mg/dL (65-115); Lactate Dehydrogenase 158 U/L (135-225); Osmolality Calculated 284 mOsm/kg (285-295); Potassium 4.3 mmol/L (3.5-5.1); Sodium 133 mmol/L (136-145); Total Bilirubin 0.6 mg/dL (0.15-1.2)
== END 2023-03-30 08:40 | disposition home or self-care (01) ==
LOC: LAB 08:41
PROVIDERS: PCP Registered Nurse; Visit Provider Internal Medicine
DX: Z79.01 Long term (current) use of anticoagulants (principal); Z95.811 Presence of heart assist device
CPT/HCPCS: 36415; 80053; 83615; 85025; 85610

== ENCOUNTER 2023-04-06 08:50 | Outpatient (CLI) | payer BC, MEDICAID, SELFPAY ==
[2023-04-06 09:09] LABS: Basophils # 0.1 10^3/uL (0.0-0.1); Basophils % 0.6 %; Eosinophils # 0.3 10^3/uL (0.0-0.8); Eosinophils % 3.6 %; Hematocrit 40.6 % (37-53); Lymphocytes # 3.2 10^3/uL (0.8-4.8); Lymphocytes % 34.7 %; Mean Corpuscular HGB Conc 31.3 g/dL (30-55); Mean Corpuscular Hemoglobin 27.6 pg (27-33); Mean Corpuscular Volume 88.3 fl (82-101); Mean Platelet Volume 12.1 fL (7.4-10.4); Monocytes # 0.6 10^3/uL (0.2-0.9); Monocytes % 6.9 %; Neutrophils # 5.01 10^3/uL (1.8-7.7); Neutrophils % 53.9 %; Nucleated Red Blood Cells % 0 %; Platelet Count 243 10^3/cmm (157-399); Red Cell Distribution Width 13.9 % (12.1-15.1); White Blood Count 9.29 10^3/uL (3.29-11.43)
[2023-04-06 09:27] LABS: INR 2.42 (0.8-1.2)
[2023-04-06 09:31] LABS: Alanine Aminotransferase 30 U/L (0-41); Albumin Level 3.8 g/dL (3.5-5.2); Alkaline Phosphatase 109 U/L (40-130); Anion Gap 17.5 (5-19); Aspartate Amino Transferase 26 U/L (0-40); Blood Urea Nitrogen 31 mg/dL (8-23); Calcium 9.3 mg/dL (8.5-10.5); Carbon Dioxide 24 mmol/L (22-29); Chloride 100 mmol/L (98-107); Globulin 3.5 g/dL (1.3-4.6); Glomerular Filtration Rate 61.1 mL/min (90-130); Glucose 139 mg/dL (65-115); Lactate Dehydrogenase 184 U/L (135-225); Osmolality Calculated 293 mOsm/kg (285-295); Potassium 4.5 mmol/L (3.5-5.1); Sodium 137 mmol/L (136-145); Total Bilirubin 0.4 mg/dL (0.15-1.2); Total Protein 7.3 g/dL (6.6-8.7)
== END 2023-04-06 08:51 | disposition home or self-care (01) ==
LOC: LAB 08:52
PROVIDERS: PCP Registered Nurse; Visit Provider Internal Medicine
DX: Z79.01 Long term (current) use of anticoagulants (principal); Z95.811 Presence of heart assist device
CPT/HCPCS: 36415; 80053; 83615; 85025; 85610

== ENCOUNTER 2023-04-15 08:43 | Outpatient (CLI) | payer BC, MEDICAID, SELFPAY ==
[2023-04-15 09:14] LABS: Basophils # 0.1 10^3/uL (0.0-0.1); Basophils % 0.8 %; Eosinophils # 0.3 10^3/uL (0.0-0.8); Eosinophils % 3.1 %; Hematocrit 39.7 % (37-53); Lymphocytes # 3.4 10^3/uL (0.8-4.8); Lymphocytes % 35.9 %; Mean Corpuscular Hemoglobin 27.1 pg (27-33); Mean Corpuscular Volume 87.4 fl (82-101); Mean Platelet Volume 12.4 fL (7.4-10.4); Monocytes # 0.5 10^3/uL (0.2-0.9); Monocytes % 5.8 %; Neutrophils # 5.03 10^3/uL (1.8-7.7); Nucleated Red Blood Cells % 0 %; Platelet Count 219 10^3/cmm (157-399); Red Blood Count 4.54 10^6/uL (3.85-5.65); Red Cell Distribution Width 14.2 % (12.1-15.1); White Blood Count 9.32 10^3/uL (3.29-11.43)
[2023-04-15 09:26] LABS: INR 2.48 (0.8-1.2)
[2023-04-15 09:28] LABS: Alanine Aminotransferase 32 U/L (0-41); Albumin Level 3.8 g/dL (3.5-5.2); Alkaline Phosphatase 98 U/L (40-130); Anion Gap 15.4 (5-19); Aspartate Amino Transferase 30 U/L (0-40); Blood Urea Nitrogen 31 mg/dL (8-23); Calcium 9.2 mg/dL (8.5-10.5); Carbon Dioxide 25 mmol/L (22-29); Chloride 104 mmol/L (98-107); Globulin 3.2 g/dL (1.3-4.6); Glomerular Filtration Rate 55.8 mL/min (90-130); Glucose 132 mg/dL (65-115); Lactate Dehydrogenase 207 U/L (135-225); Osmolality Calculated 298 mOsm/kg (285-295); Potassium 4.4 mmol/L (3.5-5.1); Sodium 140 mmol/L (136-145); Total Bilirubin 0.6 mg/dL (0.15-1.2)
== END 2023-04-15 08:44 | disposition home or self-care (01) ==
LOC: LAB 08:47
PROVIDERS: PCP Registered Nurse; Visit Provider Internal Medicine
DX: Z79.01 Long term (current) use of anticoagulants (principal); Z95.811 Presence of heart assist device
CPT/HCPCS: 36415; 80053; 83615; 85025; 85610

== ENCOUNTER 2023-04-23 07:49 | Outpatient (CLI) | payer BC, MEDICAID, SELFPAY ==
--- NOTE | 2023-04-23 07:57 | CT_ITS ---
WS: [id number] CT CHEST AND ABDOMEN WITH CONTRAST CONTRAST HISTORY: INFECTION ASSOCIATED W/DRIVELINE OF L VENTRICULAR ASSIST device TECHNIQUE: Axial imaging is performed through the chest and abdomen IV contrast. Sagittal and coronal reformats. All CT scans at [facility] use at least one of these dose optimization techniques : automated exposure control; mA and/or kV adjustment per patient size (includes targeted exams where dose is matched to clinical indication); or iterative reconstruction. CONTRAST: Omnipaque 350; 100 mL IV. DLP: 1179.72 mGy COMPARISON: 03/13/2021, 04/16/[address]: No pulmonary mass, nodule or pneumonia. Mild pleural thickening. No effusions. Prior CABG. No dehisce nce along the sternotomy line. LEFT subclavian defibrillator. Marked enlargement of the LEFT heart ch ambers. Patient has a LEFT ventricular assist device. No pericardial effusions. Mild atherosclerosis aorta. Normal size pulmonary artery. Abdomen CT: The drive line of the cardiac assist device is identified extending through the LEFT abdominal wall a nd exiting at the level of the iliac crest anteriorly. No fluid collection. No significant infiltrati on of the fat. There is no infection identified are appreciated. Normal size liver. Areas of decreased attenuation along the falciform ligament. This is probably an a glenn of hepatic steatosis. There are few scattered hepatic granulomata and splenic granulomata. Normal size spleen. Normal gallbladder and adrenal glands. Negative pancreas. Kidneys are normal size. Mild cortical thinning LEFT kidney in the mid to lower portion of the kidney. There are a few scattered h ypodensities which are too small to characterize. Mild atherosclerosis aorta. Normal appearance of the GI tract. No obstruction. No inflammatory changes around the drive line of t he cardiac assist device. No adenopathy. No ascites. L4 anterolisthesis by 3 mm. L1 retrolisthesis by 5 mm. IMPRESSION: 1. No infectious process associated with the drive line on the cardiac assist device in the LEFT abd ominal wall. 2. LEFT heart enlargement. 3. Prior CABG and LEFT subclavian defibrillator. 4. No pulmonary mass or nodule. No pneumonia. 5. Too small to characterize hypodensities in each kidney.
[2023-04-23] MEDS: iohexol 350 mg/mL 500 mL Btl (per mL) IV (08:30)
[2023-04-23 08:43] LABS: Basophils # 0.1 10^3/uL (0.0-0.1); Basophils % 0.8 %; Eosinophils # 0.3 10^3/uL (0.0-0.8); Eosinophils % 3.6 %; Hematocrit 38.3 % (37-53); Lymphocytes # 3.9 10^3/uL (0.8-4.8); Lymphocytes % 44.1 %; Mean Corpuscular HGB Conc 31.3 g/dL (30-55); Mean Corpuscular Hemoglobin 27.6 pg (27-33); Mean Corpuscular Volume 88.2 fl (82-101); Monocytes # 0.5 10^3/uL (0.2-0.9); Neutrophils # 3.99 10^3/uL (1.8-7.7); Neutrophils % 45.4 %; Nucleated Red Blood Cells % 0 %; Platelet Count 176 10^3/cmm (157-399); Red Blood Count 4.34 10^6/uL (3.85-5.65); Red Cell Distribution Width 14.6 % (12.1-15.1)
[2023-04-23 09:06] LABS: INR 2.56 (0.8-1.2)
[2023-04-23 09:08] LABS: Alanine Aminotransferase 29 U/L (0-41); Albumin Level 3.9 g/dL (3.5-5.2); Alkaline Phosphatase 104 U/L (40-130); Anion Gap 17.9 (5-19); Aspartate Amino Transferase 29 U/L (0-40); Blood Urea Nitrogen 33 mg/dL (8-23); Calcium 9.1 mg/dL (8.5-10.5); Carbon Dioxide 25 mmol/L (22-29); Chloride 106 mmol/L (98-107); Globulin 3.4 g/dL (1.3-4.6); Glomerular Filtration Rate 55.8 mL/min (90-130); Glucose 152 mg/dL (65-115); Lactate Dehydrogenase 585 U/L (135-225); Osmolality Calculated 308 mOsm/kg (285-295); Potassium 4.9 mmol/L (3.5-5.1); Sodium 144 mmol/L (136-145); Total Bilirubin 0.5 mg/dL (0.15-1.2); Total Protein 7.3 g/dL (6.6-8.7)
== END 2023-04-23 07:50 | disposition home or self-care (01) ==
LOC: RAD 07:50
PROVIDERS: PCP Registered Nurse; Visit Provider Internal Medicine
DX: T82.7XXA Infection and inflammatory reaction due to other cardiac and vascular devices, implants and grafts, initial encounter (principal); Y71.1 Therapeutic (nonsurgical) and rehabilitative cardiovascular devices associated with adverse incidents; I51.7 Cardiomegaly; Z95.1 Presence of aortocoronary bypass graft; Z95.810 Presence of automatic (implantable) cardiac defibrillator
CPT/HCPCS: 36415; 71260; 74160; 80053; 83615; 85025; 85610; Q9967

== ENCOUNTER 2023-04-24 08:51 | Outpatient (CLI) | payer BC, MEDICAID, SELFPAY ==
[2023-04-24 10:16] LABS: Lactate Dehydrogenase 213 U/L (135-225)
== END 2023-04-24 08:52 | disposition home or self-care (01) ==
LOC: LAB 09:32
PROVIDERS: PCP Registered Nurse; Visit Provider Internal Medicine
DX: Z95.811 Presence of heart assist device (principal); I25.5 Ischemic cardiomyopathy; I50.43 Acute on chronic combined systolic (congestive) and diastolic (congestive) heart failure; I25.118 Atherosclerotic heart disease of native coronary artery with other forms of angina pectoris; Z71.89 Other specified counseling
CPT/HCPCS: 36415; 83615

== ENCOUNTER 2023-04-29 09:00 | Outpatient (CLI) | payer BC, MEDICAID, SELFPAY ==
[2023-04-29 09:32] LABS: Basophils # 0.1 10^3/uL (0.0-0.1); Basophils % 0.6 %; Eosinophils # 0.4 10^3/uL (0.0-0.8); Eosinophils % 5.4 %; Hematocrit 41.3 % (37-53); Lymphocytes # 3.2 10^3/uL (0.8-4.8); Lymphocytes % 40.2 %; Mean Corpuscular HGB Conc 30.8 g/dL (30-55); Mean Corpuscular Hemoglobin 27.4 pg (27-33); Mean Platelet Volume 13.2 fL (7.4-10.4); Monocytes # 0.4 10^3/uL (0.2-0.9); Monocytes % 5.1 %; Neutrophils % 48.6 %; Nucleated Red Blood Cells % 0 %; Platelet Count 164 10^3/cmm (157-399); Red Blood Count 4.64 10^6/uL (3.85-5.65); Red Cell Distribution Width 15.2 % (12.1-15.1); White Blood Count 8.03 10^3/uL (3.29-11.43)
[2023-04-29 10:19] LABS: Alanine Aminotransferase 32 U/L (0-41); Albumin Level 3.8 g/dL (3.5-5.2); Alkaline Phosphatase 91 U/L (40-130); Aspartate Amino Transferase 32 U/L (0-40); Blood Urea Nitrogen 29 mg/dL (8-23); Calcium 9.3 mg/dL (8.5-10.5); Carbon Dioxide 22 mmol/L (22-29); Chloride 101 mmol/L (98-107); Globulin 3.3 g/dL (1.3-4.6); Glomerular Filtration Rate 55.8 mL/min (90-130); Glucose 143 mg/dL (65-115); Osmolality Calculated 294 mOsm/kg (285-295); Sodium 138 mmol/L (136-145); Total Bilirubin 0.7 mg/dL (0.15-1.2); Total Protein 7.1 g/dL (6.6-8.7)
[2023-04-29 10:20] LABS: Anion Gap 19.1 (5-19); Lactate Dehydrogenase 228 U/L (135-225); Potassium 4.1 mmol/L (3.5-5.1)
== END 2023-04-29 09:01 | disposition home or self-care (01) ==
LOC: LAB 09:04
PROVIDERS: PCP Registered Nurse; Visit Provider Internal Medicine
DX: Z79.01 Long term (current) use of anticoagulants (principal); Z95.811 Presence of heart assist device
CPT/HCPCS: 36415; 80053; 83615; 85025; 85610

== ENCOUNTER 2023-05-13 08:03 | Outpatient (CLI) | payer BC, MEDICAID, SELFPAY ==
[2023-05-13 08:25] LABS: Basophils # 0.1 10^3/uL (0.0-0.1); Eosinophils # 0.3 10^3/uL (0.0-0.8); Eosinophils % 3.4 %; Hematocrit 44.2 % (37-53); Lymphocytes # 4.1 10^3/uL (0.8-4.8); Lymphocytes % 44.3 %; Mean Corpuscular HGB Conc 31.4 g/dL (30-55); Mean Corpuscular Hemoglobin 27.3 pg (27-33); Mean Corpuscular Volume 86.7 fl (82-101); Monocytes # 0.5 10^3/uL (0.2-0.9); Monocytes % 5.5 %; Neutrophils # 4.24 10^3/uL (1.8-7.7); Neutrophils % 45.7 %; Nucleated Red Blood Cells % 0 %; Platelet Count 146 10^3/cmm (157-399); White Blood Count 9.28 10^3/uL (3.29-11.43)
[2023-05-13 08:45] LABS: INR 3.86 (0.8-1.2)
[2023-05-13 08:47] LABS: Alanine Aminotransferase 54 U/L (0-41); Alkaline Phosphatase 110 U/L (40-130); Anion Gap 14.3 (5-19); Aspartate Amino Transferase 47 U/L (0-40); Blood Urea Nitrogen 36 mg/dL (8-23); Calcium 9.7 mg/dL (8.5-10.5); Carbon Dioxide 28 mmol/L (22-29); Chloride 99 mmol/L (98-107); Globulin 3.3 g/dL (1.3-4.6); Glomerular Filtration Rate 51.2 mL/min (90-130); Glucose 144 mg/dL (65-115); Lactate Dehydrogenase 219 U/L (135-225); Osmolality Calculated 295 mOsm/kg (285-295); Potassium 4.3 mmol/L (3.5-5.1); Sodium 137 mmol/L (136-145); Total Bilirubin 0.6 mg/dL (0.15-1.2); Total Protein 7.3 g/dL (6.6-8.7)
== END 2023-05-13 08:04 | disposition home or self-care (01) ==
LOC: LAB 08:04
PROVIDERS: PCP Registered Nurse; Visit Provider Internal Medicine
DX: Z79.01 Long term (current) use of anticoagulants (principal); Z95.811 Presence of heart assist device; Z79.899 Other long term (current) drug therapy
CPT/HCPCS: 36415; 80053; 83615; 85025; 85610

== ENCOUNTER 2023-05-20 07:53 | Outpatient (RCR) | payer BC, MEDICAID, SELFPAY ==
[2023-05-20 08:29] LABS: Basophils # 0.1 10^3/uL (0.0-0.1); Basophils % 0.8 %; Eosinophils # 0.3 10^3/uL (0.0-0.8); Eosinophils % 3.7 %; Hematocrit 43.2 % (37-53); Lymphocytes # 3.7 10^3/uL (0.8-4.8); Mean Corpuscular HGB Conc 31.3 g/dL (30-55); Mean Corpuscular Hemoglobin 27.1 pg (27-33); Mean Corpuscular Volume 86.7 fl (82-101); Mean Platelet Volume 13.5 fL (7.4-10.4); Monocytes # 0.5 10^3/uL (0.2-0.9); Monocytes % 5.2 %; Neutrophils # 4.65 10^3/uL (1.8-7.7); Neutrophils % 50.1 %; Nucleated Red Blood Cells % 0 %; Platelet Count 141 10^3/cmm (157-399); Red Blood Count 4.98 10^6/uL (3.85-5.65); Red Cell Distribution Width 15.1 % (12.1-15.1); White Blood Count 9.27 10^3/uL (3.29-11.43)
[2023-05-20 08:54] LABS: Alanine Aminotransferase 35 U/L (0-41); Alkaline Phosphatase 90 U/L (40-130); Anion Gap 15.3 (5-19); Aspartate Amino Transferase 31 U/L (0-40); Blood Urea Nitrogen 34 mg/dL (8-23); Calcium 9.6 mg/dL (8.5-10.5); Carbon Dioxide 25 mmol/L (22-29); Chloride 105 mmol/L (98-107); Globulin 3.3 g/dL (1.3-4.6); Glomerular Filtration Rate 51.2 mL/min (90-130); Glucose 131 mg/dL (65-115); Lactate Dehydrogenase 271 U/L (135-225); Osmolality Calculated 301 mOsm/kg (285-295); Potassium 4.3 mmol/L (3.5-5.1); Sodium 141 mmol/L (136-145); Total Bilirubin 0.8 mg/dL (0.15-1.2); Total Protein 7.3 g/dL (6.6-8.7)
[2023-05-20 09:03] LABS: INR 3.47 (0.8-1.2)
== END 2023-05-20 07:54 | disposition home or self-care (01) ==
LOC: LAB 07:53
PROVIDERS: PCP Registered Nurse; Visit Provider Internal Medicine
DX: Z79.01 Long term (current) use of anticoagulants (principal); Z95.811 Presence of heart assist device
CPT/HCPCS: 36415; 80053; 83615; 85025; 85610

== ENCOUNTER 2023-06-03 07:34 | Outpatient (RCR) | payer BC, MEDICAID, SELFPAY ==
[2023-05-27 07:50] LABS: Basophils # 0.1 10^3/uL (0.0-0.1); Basophils % 0.5 %; Eosinophils # 0.5 10^3/uL (0.0-0.8); Eosinophils % 5.1 %; Hematocrit 43.7 % (37-53); Lymphocytes # 4.1 10^3/uL (0.8-4.8); Lymphocytes % 42.8 %; Mean Corpuscular HGB Conc 31.8 g/dL (30-55); Mean Corpuscular Hemoglobin 27.4 pg (27-33); Mean Corpuscular Volume 86.2 fl (82-101); Mean Platelet Volume 13.1 fL (7.4-10.4); Monocytes # 0.5 10^3/uL (0.2-0.9); Monocytes % 5.5 %; Neutrophils % 45.8 %; Nucleated Red Blood Cells % 0 %; Platelet Count 150 10^3/cmm (157-399); Red Blood Count 5.07 10^6/uL (3.85-5.65); Red Cell Distribution Width 15.5 % (12.1-15.1); White Blood Count 9.61 10^3/uL (3.29-11.43)
[2023-05-27 08:09] LABS: INR 3.49 (0.8-1.2)
[2023-05-27 08:11] LABS: Alanine Aminotransferase 35 U/L (0-41); Alkaline Phosphatase 88 U/L (40-130); Anion Gap 16.3 (5-19); Aspartate Amino Transferase 35 U/L (0-40); Blood Urea Nitrogen 31 mg/dL (8-23); Calcium 9.8 mg/dL (8.5-10.5); Carbon Dioxide 24 mmol/L (22-29); Chloride 104 mmol/L (98-107); Globulin 3.2 g/dL (1.3-4.6); Glomerular Filtration Rate 47.3 mL/min (90-130); Glucose 130 mg/dL (65-115); Lactate Dehydrogenase 213 U/L (135-225); Osmolality Calculated 298 mOsm/kg (285-295); Potassium 4.3 mmol/L (3.5-5.1); Sodium 140 mmol/L (136-145); Total Bilirubin 0.9 mg/dL (0.15-1.2); Total Protein 7.2 g/dL (6.6-8.7)
== END 2023-06-16 23:59 | disposition home or self-care (01) ==
LOC: LAB 07:34
PROVIDERS: PCP Registered Nurse; Visit Provider Internal Medicine
DX: Z79.01 Long term (current) use of anticoagulants (principal)
CPT/HCPCS: 36415; 80053; 83615; 85025; 85610

== ENCOUNTER 2023-06-03 07:36 | Outpatient (CLI) | payer BC, MEDICAID, SELFPAY ==
[2023-06-03 07:59] LABS: Basophils % 0.5 %; Eosinophils # 0.4 10^3/uL (0.0-0.8); Eosinophils % 5.2 %; Hematocrit 39.4 % (37-53); Lymphocytes # 3.3 10^3/uL (0.8-4.8); Lymphocytes % 39.7 %; Mean Corpuscular HGB Conc 32.5 g/dL (30-55); Mean Corpuscular Hemoglobin 27.9 pg (27-33); Mean Corpuscular Volume 85.8 fl (82-101); Mean Platelet Volume 13.2 fL (7.4-10.4); Monocytes # 0.5 10^3/uL (0.2-0.9); Monocytes % 5.5 %; Neutrophils # 4.04 10^3/uL (1.8-7.7); Nucleated Red Blood Cells % 0 %; Platelet Count 151 10^3/cmm (157-399); Red Blood Count 4.59 10^6/uL (3.85-5.65); White Blood Count 8.24 10^3/uL (3.29-11.43)
[2023-06-03 08:30] LABS: Alanine Aminotransferase 31 U/L (0-41); Albumin Level 3.8 g/dL (3.5-5.2); Alkaline Phosphatase 99 U/L (40-130); Anion Gap 14.6 (5-19); Aspartate Amino Transferase 38 U/L (0-40); Blood Urea Nitrogen 33 mg/dL (8-23); Calcium 9.6 mg/dL (8.5-10.5); Carbon Dioxide 23 mmol/L (22-29); Chloride 106 mmol/L (98-107); Free T4 Free Thyroxine 1.28 ng/dL (0.82-1.77); Glomerular Filtration Rate 47.3 mL/min (90-130); Glucose 136 mg/dL (65-115); Lactate Dehydrogenase 207 U/L (135-225); Osmolality Calculated 297 mOsm/kg (285-295); Potassium 4.6 mmol/L (3.5-5.1); Sodium 139 mmol/L (136-145); Thyroid Stimulating Hormone 3.39 uIU/mL (0.27-4.20); Total Bilirubin 0.8 mg/dL (0.15-1.2); Total Protein 6.8 g/dL (6.6-8.7)
[2023-06-03 08:55] LABS: INR 2.81 (0.8-1.2)
== END 2023-06-03 07:37 | disposition home or self-care (01) ==
LOC: LAB 07:37
PROVIDERS: PCP Registered Nurse; Visit Provider Internal Medicine Cardiovascular Disease
DX: I47.29 Other ventricular tachycardia (principal); Z79.899 Other long term (current) drug therapy
CPT/HCPCS: 36415; 80053; 83615; 84439; 84443; 85025; 85610

== ENCOUNTER 2023-06-17 08:08 | Outpatient (CLI) | payer BC, MEDICAID, SELFPAY ==
[2023-06-17 08:52] LABS: Basophils # 0.1 10^3/uL (0.0-0.1); Basophils % 0.8 %; Eosinophils # 0.3 10^3/uL (0.0-0.8); Eosinophils % 3.8 %; Hematocrit 38.8 % (37-53); Lymphocytes % 47.6 %; Mean Corpuscular Hemoglobin 27.9 pg (27-33); Mean Corpuscular Volume 87.2 fl (82-101); Monocytes # 0.5 10^3/uL (0.2-0.9); Monocytes % 6.1 %; Neutrophils # 3.52 10^3/uL (1.8-7.7); Neutrophils % 41.6 %; Nucleated Red Blood Cells % 0 %; Platelet Count 132 10^3/cmm (157-399); Red Blood Count 4.45 10^6/uL (3.85-5.65); Red Cell Distribution Width 16.4 % (12.1-15.1); White Blood Count 8.47 10^3/uL (3.29-11.43)
[2023-06-17 09:18] LABS: INR 2.41 (0.8-1.2)
[2023-06-17 09:24] LABS: Alanine Aminotransferase 37 U/L (0-41); Albumin Level 3.7 g/dL (3.5-5.2); Alkaline Phosphatase 90 U/L (40-130); Anion Gap 16.4 (5-19); Aspartate Amino Transferase 34 U/L (0-40); Blood Urea Nitrogen 32 mg/dL (8-23); Calcium 9.5 mg/dL (8.5-10.5); Carbon Dioxide 23 mmol/L (22-29); Chloride 105 mmol/L (98-107); Chol HDL Ratio 2.57 mg/dL (1.0-5.00); Cholesterol 139 mg/dL (0-200); Glomerular Filtration Rate 51.2 mL/min (90-130); Glucose 110 mg/dL (65-115); HDL Cholesterol 54 mg/dL (60-100); LDL Cholesterol Calculated 58 mg/dL (50-129); LDL HDL Ratio 1.07 RATIO (0.00-3.22); Lactate Dehydrogenase 204 U/L (135-225); Osmolality Calculated 298 mOsm/kg (285-295); Potassium 4.4 mmol/L (3.5-5.1); Sodium 140 mmol/L (136-145); Total Bilirubin 0.6 mg/dL (0.15-1.2); Total Protein 6.7 g/dL (6.6-8.7); Triglycerides 134 mg/dL (0-150)
[2023-06-17 09:26] LABS: Estmated Average Glucose 123; Hemoglobin A1C 5.9 % (4.0-6.0)
== END 2023-06-17 08:09 | disposition home or self-care (01) ==
LOC: LAB 08:15
PROVIDERS: Absent Provider Internal Medicine; PCP Registered Nurse; Visit Provider Registered Nurse
DX: R97.20 Elevated prostate specific antigen [PSA] (principal)
CPT/HCPCS: 36415; 80053; 80061; 83036; 83615; 84153; 85025; 85610

== ENCOUNTER 2023-10-05 09:13 | Outpatient (CLI) | payer BC, MEDICAID, SELFPAY ==
[2023-10-05 10:34] LABS: Basophils # 0.1 10^3/uL (0.0-0.1); Basophils % 0.7 %; Eosinophils # 0.2 10^3/uL (0.0-0.8); Eosinophils % 2.5 %; Hematocrit 44.8 % (37-53); Lymphocytes # 4.5 10^3/uL (0.8-4.8); Lymphocytes % 46.9 %; Mean Corpuscular HGB Conc 31.9 g/dL (30-55); Mean Corpuscular Hemoglobin 28.5 pg (27-33); Mean Corpuscular Volume 89.4 fl (82-101); Mean Platelet Volume 13.2 fL (7.4-10.4); Monocytes # 0.4 10^3/uL (0.2-0.9); Monocytes % 4.1 %; Neutrophils # 4.36 10^3/uL (1.8-7.7); Neutrophils % 45.6 %; Nucleated Red Blood Cells % 0 %; Platelet Count 139 10^3/cmm (157-399); Red Blood Count 5.01 10^6/uL (3.85-5.65); Red Cell Distribution Width 14.2 % (12.1-15.1); White Blood Count 9.57 10^3/uL (3.29-11.43)
[2023-10-05 10:51] LABS: INR 2.67 (0.8-1.2)
[2023-10-05 10:55] LABS: Alanine Aminotransferase 28 U/L (0-41); Albumin Level 4.1 g/dL (3.5-5.2); Alkaline Phosphatase 102 U/L (40-130); Anion Gap 16.6 (5-19); Aspartate Amino Transferase 25 U/L (0-40); Blood Urea Nitrogen 33 mg/dL (8-23); Calcium 9.1 mg/dL (8.5-10.5); Carbon Dioxide 23 mmol/L (22-29); Chloride 103 mmol/L (98-107); Globulin 2.8 g/dL (1.3-4.6); Glomerular Filtration Rate 43.7 mL/min (90-130); Glucose 147 mg/dL (65-115); Lactate Dehydrogenase 172 U/L (135-225); Osmolality Calculated 296 mOsm/kg (285-295); Potassium 4.6 mmol/L (3.5-5.1); Sodium 138 mmol/L (136-145); Total Bilirubin 0.6 mg/dL (0.15-1.2); Total Protein 6.9 g/dL (6.6-8.7)
[2023-10-05 10:58] LABS: Slide Review Slide Review Perform
== END 2023-10-05 09:14 | disposition home or self-care (01) ==
LOC: LAB 09:18
PROVIDERS: PCP Registered Nurse; Visit Provider Internal Medicine
DX: Z79.01 Long term (current) use of anticoagulants (principal); Z95.811 Presence of heart assist device
CPT/HCPCS: 36415; 80053; 83615; 85025; 85610

== ENCOUNTER 2023-10-21 09:07 | Outpatient (CLI) | payer BC, MEDICAID, SELFPAY ==
[2023-10-21 09:37] LABS: Basophils # 0.1 10^3/uL (0.0-0.1); Basophils % 0.5 %; Eosinophils # 0.3 10^3/uL (0.0-0.8); Eosinophils % 2.4 %; Hematocrit 44.2 % (37-53); Lymphocytes # 5.1 10^3/uL (0.8-4.8); Lymphocytes % 46.6 %; Mean Corpuscular HGB Conc 31.4 g/dL (30-55); Mean Corpuscular Hemoglobin 28.5 pg (27-33); Mean Corpuscular Volume 90.8 fl (82-101); Mean Platelet Volume 12.8 fL (7.4-10.4); Monocytes # 0.5 10^3/uL (0.2-0.9); Monocytes % 4.4 %; Neutrophils # 5.05 10^3/uL (1.8-7.7); Neutrophils % 45.8 %; Nucleated Red Blood Cells % 0 %; Platelet Count 157 10^3/cmm (157-399); Red Blood Count 4.87 10^6/uL (3.85-5.65); Red Cell Distribution Width 14.7 % (12.1-15.1); White Blood Count 11.02 10^3/uL (3.29-11.43)
[2023-10-21 09:50] LABS: INR 3.44 (0.8-1.2)
[2023-10-21 09:52] LABS: Alanine Aminotransferase 45 U/L (0-41); Albumin Level 4.1 g/dL (3.5-5.2); Alkaline Phosphatase 109 U/L (40-130); Anion Gap 14.9 (5-19); Aspartate Amino Transferase 31 U/L (0-40); Blood Urea Nitrogen 38 mg/dL (8-23); Calcium 9.4 mg/dL (8.5-10.5); Carbon Dioxide 27 mmol/L (22-29); Chloride 104 mmol/L (98-107); Globulin 2.9 g/dL (1.3-4.6); Glomerular Filtration Rate 43.7 mL/min (90-130); Glucose 163 mg/dL (65-115); Lactate Dehydrogenase 193 U/L (135-225); Osmolality Calculated 305 mOsm/kg (285-295); Potassium 4.9 mmol/L (3.5-5.1); Sodium 141 mmol/L (136-145); Total Bilirubin 0.6 mg/dL (0.15-1.2)
== END 2023-10-21 09:08 | disposition home or self-care (01) ==
LOC: LAB 09:11
PROVIDERS: PCP Registered Nurse; Visit Provider Internal Medicine
DX: Z79.01 Long term (current) use of anticoagulants (principal); Z95.811 Presence of heart assist device
CPT/HCPCS: 36415; 80053; 83615; 85025; 85610

== ENCOUNTER 2023-10-27 09:17 | Outpatient (CLI) | payer BC, MEDICAID, SELFPAY ==
[2023-10-27 10:09] LABS: Basophils # 0.1 10^3/uL (0.0-0.1); Basophils % 0.5 %; Eosinophils # 0.2 10^3/uL (0.0-0.8); Hematocrit 41.6 % (37-53); Lymphocytes # 5.5 10^3/uL (0.8-4.8); Lymphocytes % 52.2 %; Mean Corpuscular HGB Conc 31.3 g/dL (30-55); Mean Corpuscular Hemoglobin 27.6 pg (27-33); Mean Corpuscular Volume 88.3 fl (82-101); Mean Platelet Volume 12.4 fL (7.4-10.4); Monocytes # 0.4 10^3/uL (0.2-0.9); Neutrophils # 4.36 10^3/uL (1.8-7.7); Neutrophils % 41.1 %; Nucleated Red Blood Cells % 0 %; Platelet Count 152 10^3/cmm (157-399); Red Blood Count 4.71 10^6/uL (3.85-5.65); Red Cell Distribution Width 14.7 % (12.1-15.1); White Blood Count 10.59 10^3/uL (3.29-11.43)
[2023-10-27 10:22] LABS: INR 3.25 (0.8-1.2)
[2023-10-27 10:29] LABS: Alanine Aminotransferase 58 U/L (0-41); Albumin Level 4.1 g/dL (3.5-5.2); Alkaline Phosphatase 103 U/L (40-130); Anion Gap 15.6 (5-19); Aspartate Amino Transferase 49 U/L (0-40); Blood Urea Nitrogen 32 mg/dL (8-23); Calcium 9.4 mg/dL (8.5-10.5); Carbon Dioxide 24 mmol/L (22-29); Chloride 106 mmol/L (98-107); Globulin 2.7 g/dL (1.3-4.6); Glomerular Filtration Rate 47.1 mL/min (90-130); Glucose 167 mg/dL (65-115); Lactate Dehydrogenase 212 U/L (135-225); Osmolality Calculated 303 mOsm/kg (285-295); Potassium 4.6 mmol/L (3.5-5.1); Sodium 141 mmol/L (136-145); Total Bilirubin 0.7 mg/dL (0.15-1.2); Total Protein 6.8 g/dL (6.6-8.7)
== END 2023-10-27 09:18 | disposition home or self-care (01) ==
LOC: LAB 09:20
PROVIDERS: PCP Registered Nurse; Visit Provider Internal Medicine
DX: Z79.01 Long term (current) use of anticoagulants (principal); Z95.811 Presence of heart assist device
CPT/HCPCS: 80053; 83615; 85025; 85610

== ENCOUNTER 2023-11-04 09:41 | Outpatient (CLI) | payer BC, MEDICAID, SELFPAY ==
[2023-11-04 10:27] LABS: Basophils # 0.1 10^3/uL (0.0-0.1); Basophils % 0.5 %; Eosinophils # 0.2 10^3/uL (0.0-0.8); Eosinophils % 1.4 %; Hematocrit 41.2 % (37-53); Lymphocytes # 5.8 10^3/uL (0.8-4.8); Lymphocytes % 52.3 %; Mean Corpuscular HGB Conc 31.8 g/dL (30-55); Mean Corpuscular Hemoglobin 28.1 pg (27-33); Mean Corpuscular Volume 88.4 fl (82-101); Mean Platelet Volume 13.4 fL (7.4-10.4); Monocytes # 0.5 10^3/uL (0.2-0.9); Monocytes % 4.5 %; Neutrophils # 4.56 10^3/uL (1.8-7.7); Nucleated Red Blood Cells % 0 %; Platelet Count 154 10^3/cmm (157-399); Red Blood Count 4.66 10^6/uL (3.85-5.65); Red Cell Distribution Width 14.6 % (12.1-15.1)
[2023-11-04 10:47] LABS: INR 2.88 (0.8-1.2)
[2023-11-04 10:59] LABS: Alanine Aminotransferase 46 U/L (0-41); Albumin Level 3.9 g/dL (3.5-5.2); Alkaline Phosphatase 100 U/L (40-130); Anion Gap 17.5 (5-19); Aspartate Amino Transferase 31 U/L (0-40); Blood Urea Nitrogen 38 mg/dL (8-23); Calcium 9.4 mg/dL (8.5-10.5); Carbon Dioxide 24 mmol/L (22-29); Chloride 103 mmol/L (98-107); Globulin 2.9 g/dL (1.3-4.6); Glomerular Filtration Rate 38.2 mL/min (90-130); Glucose 166 mg/dL (65-115); Lactate Dehydrogenase 192 U/L (135-225); Osmolality Calculated 303 mOsm/kg (285-295); Potassium 4.5 mmol/L (3.5-5.1); Sodium 140 mmol/L (136-145); Total Bilirubin 0.7 mg/dL (0.15-1.2); Total Protein 6.8 g/dL (6.6-8.7)
[2023-11-04 11:17] LABS: Slide Review Slide Review Perform
== END 2023-11-04 09:42 | disposition home or self-care (01) ==
PROVIDERS: PCP Registered Nurse; Visit Provider Internal Medicine
DX: Z79.01 Long term (current) use of anticoagulants (principal); Z95.811 Presence of heart assist device
CPT/HCPCS: 36415; 80053; 83615; 85025; 85610

== ENCOUNTER 2023-11-18 08:47 | Outpatient (CLI) | payer BC, MEDICAID, SELFPAY ==
[2023-11-18 09:15] LABS: Basophils # 0.1 10^3/uL (0.0-0.1); Basophils % 0.5 %; Eosinophils # 0.2 10^3/uL (0.0-0.8); Eosinophils % 1.5 %; Hematocrit 42.8 % (37-53); Lymphocytes # 5.6 10^3/uL (0.8-4.8); Lymphocytes % 52.1 %; Mean Corpuscular HGB Conc 31.8 g/dL (30-55); Mean Corpuscular Hemoglobin 28.2 pg (27-33); Mean Corpuscular Volume 88.6 fl (82-101); Mean Platelet Volume 12.4 fL (7.4-10.4); Monocytes # 0.6 10^3/uL (0.2-0.9); Monocytes % 5.9 %; Neutrophils # 4.25 10^3/uL (1.8-7.7); Neutrophils % 39.8 %; Nucleated Red Blood Cells % 0 %; Platelet Count 160 10^3/cmm (157-399); Red Blood Count 4.83 10^6/uL (3.85-5.65); Red Cell Distribution Width 15.1 % (12.1-15.1); White Blood Count 10.66 10^3/uL (3.29-11.43)
[2023-11-18 09:29] LABS: INR 2.46 (0.8-1.2)
[2023-11-18 09:32] LABS: Alanine Aminotransferase 35 U/L (0-41); Albumin Level 4.1 g/dL (3.5-5.2); Alkaline Phosphatase 86 U/L (40-130); Anion Gap 13.2 (5-19); Aspartate Amino Transferase 30 U/L (0-40); Blood Urea Nitrogen 29 mg/dL (8-23); Calcium 9.3 mg/dL (8.5-10.5); Carbon Dioxide 27 mmol/L (22-29); Chloride 104 mmol/L (98-107); Globulin 2.9 g/dL (1.3-4.6); Glomerular Filtration Rate 47.1 mL/min (90-130); Glucose 151 mg/dL (65-115); Lactate Dehydrogenase 193 U/L (135-225); Osmolality Calculated 299 mOsm/kg (285-295); Potassium 4.2 mmol/L (3.5-5.1); Sodium 140 mmol/L (136-145); Total Bilirubin 0.9 mg/dL (0.15-1.2)
== END 2023-11-18 08:48 | disposition home or self-care (01) ==
LOC: LAB 08:48
PROVIDERS: PCP Registered Nurse; Visit Provider Internal Medicine
DX: Z79.01 Long term (current) use of anticoagulants (principal); Z95.811 Presence of heart assist device
CPT/HCPCS: 36415; 80053; 83615; 85025; 85610

== ENCOUNTER 2023-12-04 09:36 | Outpatient (CLI) | payer BC, MEDICAID, SELFPAY ==
[2023-12-04 10:18] LABS: Basophils # 0.1 10^3/uL (0.0-0.1); Basophils % 0.4 %; Eosinophils # 0.2 10^3/uL (0.0-0.8); Eosinophils % 1.4 %; Hematocrit 42.6 % (37-53); Lymphocytes # 7.5 10^3/uL (0.8-4.8); Lymphocytes % 52.2 %; Mean Corpuscular HGB Conc 32.2 g/dL (30-55); Mean Corpuscular Volume 90.1 fl (82-101); Mean Platelet Volume 12.8 fL (7.4-10.4); Monocytes # 0.5 10^3/uL (0.2-0.9); Monocytes % 3.4 %; Neutrophils # 6.07 10^3/uL (1.8-7.7); Neutrophils % 42.4 %; Nucleated Red Blood Cells % 0 %; Platelet Count 178 10^3/cmm (157-399); Red Blood Count 4.73 10^6/uL (3.85-5.65); Red Cell Distribution Width 15.3 % (12.1-15.1); White Blood Count 14.32 10^3/uL (3.29-11.43)
[2023-12-04 10:28] LABS: Alanine Aminotransferase 35 U/L (0-41); Albumin Level 4.2 g/dL (3.5-5.2); Alkaline Phosphatase 87 U/L (40-130); Anion Gap 15.7 (5-19); Aspartate Amino Transferase 25 U/L (0-40); Blood Urea Nitrogen 28 mg/dL (8-23); Calcium 9.3 mg/dL (8.5-10.5); Carbon Dioxide 24 mmol/L (22-29); Chloride 104 mmol/L (98-107); Globulin 3.1 g/dL (1.3-4.6); Glomerular Filtration Rate 40.8 mL/min (90-130); Glucose 165 mg/dL (65-115); Lactate Dehydrogenase 229 U/L (135-225); Osmolality Calculated 297 mOsm/kg (285-295); Potassium 4.7 mmol/L (3.5-5.1); Sodium 139 mmol/L (136-145); Total Bilirubin 0.7 mg/dL (0.15-1.2); Total Protein 7.3 g/dL (6.6-8.7)
[2023-12-04 10:38] LABS: INR 2.54 (0.8-1.2)
== END 2023-12-04 09:37 | disposition home or self-care (01) ==
PROVIDERS: PCP Registered Nurse; Visit Provider Internal Medicine
DX: Z79.01 Long term (current) use of anticoagulants (principal); Z95.811 Presence of heart assist device
CPT/HCPCS: 36415; 80053; 83615; 85025; 85610

== ENCOUNTER 2023-12-23 09:36 | Outpatient (CLI) | payer BC, MEDICAID, SELFPAY ==
[2023-12-23 09:57] LABS: Basophils # 0.1 10^3/uL (0.0-0.1); Basophils % 0.6 %; Eosinophils # 0.2 10^3/uL (0.0-0.8); Eosinophils % 1.4 %; Hematocrit 46.8 % (37-53); Lymphocytes # 7.9 10^3/uL (0.8-4.8); Lymphocytes % 55.9 %; Mean Corpuscular HGB Conc 30.8 g/dL (30-55); Mean Corpuscular Hemoglobin 29.1 pg (27-33); Mean Corpuscular Volume 94.7 fl (82-101); Mean Platelet Volume 12.5 fL (7.4-10.4); Monocytes # 0.6 10^3/uL (0.2-0.9); Neutrophils # 5.34 10^3/uL (1.8-7.7); Neutrophils % 37.9 %; Nucleated Red Blood Cells % 0 %; Platelet Count 180 10^3/cmm (157-399); Red Blood Count 4.94 10^6/uL (3.85-5.65); Red Cell Distribution Width 14.8 % (12.1-15.1); White Blood Count 14.12 10^3/uL (3.29-11.43)
[2023-12-23 10:14] LABS: INR 2.67 (0.8-1.2)
[2023-12-23 10:21] LABS: Alanine Aminotransferase 34 U/L (0-41); Albumin Level 4.2 g/dL (3.5-5.2); Alkaline Phosphatase 98 U/L (40-130); Anion Gap 15.4 (5-19); Aspartate Amino Transferase 25 U/L (0-40); Blood Urea Nitrogen 27 mg/dL (8-23); Calcium 9.4 mg/dL (8.5-10.5); Carbon Dioxide 24 mmol/L (22-29); Chloride 101 mmol/L (98-107); Globulin 2.3 g/dL (1.3-4.6); Glomerular Filtration Rate 40.8 mL/min (90-130); Glucose 157 mg/dL (65-115); Lactate Dehydrogenase 189 U/L (135-225); Osmolality Calculated 290 mOsm/kg (285-295); Potassium 4.4 mmol/L (3.5-5.1); Sodium 136 mmol/L (136-145); Total Bilirubin 0.8 mg/dL (0.15-1.2); Total Protein 6.5 g/dL (6.6-8.7)
[2023-12-23 10:38] LABS: Slide Review Slide Review Perform
== END 2023-12-23 09:37 | disposition home or self-care (01) ==
LOC: LAB 09:39
PROVIDERS: PCP Registered Nurse; Visit Provider Internal Medicine
DX: Z79.01 Long term (current) use of anticoagulants (principal); Z95.811 Presence of heart assist device
CPT/HCPCS: 36415; 80053; 83615; 85025; 85610

== ENCOUNTER 2024-01-06 09:41 | Outpatient (CLI) | payer BC, MEDICAID, SELFPAY ==
[2024-01-06 10:48] LABS: Basophils # 0.1 10^3/uL (0.0-0.1); Basophils % 0.5 %; Eosinophils # 0.2 10^3/uL (0.0-0.8); Eosinophils % 1.5 %; Hematocrit 42.2 % (37-53); Lymphocytes # 8.7 10^3/uL (0.8-4.8); Lymphocytes % 64.1 %; Mean Corpuscular HGB Conc 31.5 g/dL (30-55); Mean Corpuscular Hemoglobin 28.1 pg (27-33); Mean Platelet Volume 12.8 fL (7.4-10.4); Monocytes # 0.5 10^3/uL (0.2-0.9); Monocytes % 3.3 %; Neutrophils # 4.12 10^3/uL (1.8-7.7); Neutrophils % 30.4 %; Nucleated Red Blood Cells % 0 %; Platelet Count 167 10^3/cmm (157-399); Red Blood Count 4.74 10^6/uL (3.85-5.65); Red Cell Distribution Width 14.6 % (12.1-15.1); White Blood Count 13.58 10^3/uL (3.29-11.43)
[2024-01-06 11:00] LABS: INR 2.95 (0.8-1.2)
[2024-01-06 11:04] LABS: Alanine Aminotransferase 29 U/L (0-41); Albumin Level 4.2 g/dL (3.5-5.2); Alkaline Phosphatase 88 U/L (40-130); Anion Gap 17.5 (5-19); Aspartate Amino Transferase 26 U/L (0-40); Blood Urea Nitrogen 28 mg/dL (8-23); Calcium 8.8 mg/dL (8.5-10.5); Carbon Dioxide 21 mmol/L (22-29); Chloride 105 mmol/L (98-107); Globulin 2.4 g/dL (1.3-4.6); Glomerular Filtration Rate 47.1 mL/min (90-130); Glucose 131 mg/dL (65-115); Lactate Dehydrogenase 197 U/L (135-225); Osmolality Calculated 295 mOsm/kg (285-295); Potassium 4.5 mmol/L (3.5-5.1); Sodium 139 mmol/L (136-145); Total Bilirubin 0.7 mg/dL (0.15-1.2); Total Protein 6.6 g/dL (6.6-8.7)
== END 2024-01-06 09:42 | disposition home or self-care (01) ==
LOC: LAB 09:42
PROVIDERS: PCP Registered Nurse; Visit Provider Internal Medicine
DX: Z79.01 Long term (current) use of anticoagulants (principal); Z95.811 Presence of heart assist device
CPT/HCPCS: 36415; 80053; 83615; 85025; 85610

== ENCOUNTER 2024-01-20 09:50 | Outpatient (CLI) | payer BC, MEDICAID, SELFPAY ==
[2024-01-20 10:31] LABS: Basophils # 0.1 10^3/uL (0.0-0.1); Basophils % 0.4 %; Eosinophils # 0.2 10^3/uL (0.0-0.8); Eosinophils % 1.5 %; Hematocrit 43.9 % (37-53); Lymphocytes # 9.5 10^3/uL (0.8-4.8); Lymphocytes % 62.9 %; Mean Corpuscular HGB Conc 30.5 g/dL (30-55); Mean Corpuscular Hemoglobin 27.5 pg (27-33); Mean Corpuscular Volume 90.1 fl (82-101); Mean Platelet Volume 12.2 fL (7.4-10.4); Monocytes # 0.6 10^3/uL (0.2-0.9); Monocytes % 3.9 %; Neutrophils # 4.69 10^3/uL (1.8-7.7); Nucleated Red Blood Cells % 0 %; Platelet Count 163 10^3/cmm (157-399); Red Blood Count 4.87 10^6/uL (3.85-5.65); Red Cell Distribution Width 14.3 % (12.1-15.1); White Blood Count 15.05 10^3/uL (3.29-11.43)
[2024-01-20 10:37] LABS: INR 3.55 (0.8-1.2)
[2024-01-20 10:54] LABS: Alanine Aminotransferase 29 U/L (0-41); Alkaline Phosphatase 109 U/L (40-130); Aspartate Amino Transferase 25 U/L (0-40); Blood Urea Nitrogen 25 mg/dL (8-23); Calcium 9.5 mg/dL (8.5-10.5); Carbon Dioxide 23 mmol/L (22-29); Chloride 103 mmol/L (98-107); Globulin 3.1 g/dL (1.3-4.6); Glomerular Filtration Rate 43.7 mL/min (90-130); Glucose 132 mg/dL (65-115); Osmolality Calculated 294 mOsm/kg (285-295); Sodium 139 mmol/L (136-145); Total Bilirubin 0.5 mg/dL (0.15-1.2); Total Protein 7.1 g/dL (6.6-8.7)
[2024-01-20 10:55] LABS: Anion Gap 17.6 (5-19); Lactate Dehydrogenase 202 U/L (135-225); Potassium 4.6 mmol/L (3.5-5.1)
== END 2024-01-20 09:51 | disposition home or self-care (01) ==
LOC: LAB 09:51
PROVIDERS: PCP Registered Nurse; Visit Provider Internal Medicine
DX: Z79.01 Long term (current) use of anticoagulants (principal); Z95.811 Presence of heart assist device
CPT/HCPCS: 36415; 80053; 83615; 85025; 85610

== ENCOUNTER 2024-01-27 10:04 | Outpatient (CLI) | payer BC, MEDICAID, SELFPAY ==
[2024-01-27 10:41] LABS: Basophils # 0.1 10^3/uL (0.0-0.1); Basophils % 0.6 %; Eosinophils # 0.2 10^3/uL (0.0-0.8); Eosinophils % 1.6 %; Hematocrit 43.5 % (37-53); Lymphocytes # 8.6 10^3/uL (0.8-4.8); Lymphocytes % 58.6 %; Mean Corpuscular Hemoglobin 28.5 pg (27-33); Mean Corpuscular Volume 91.8 fl (82-101); Mean Platelet Volume 12.5 fL (7.4-10.4); Monocytes # 0.6 10^3/uL (0.2-0.9); Monocytes % 3.7 %; Neutrophils # 5.19 10^3/uL (1.8-7.7); Neutrophils % 35.2 %; Nucleated Red Blood Cells % 0.1 %; Platelet Count 165 10^3/cmm (157-399); Red Blood Count 4.74 10^6/uL (3.85-5.65); Red Cell Distribution Width 14.2 % (12.1-15.1); White Blood Count 14.75 10^3/uL (3.29-11.43)
[2024-01-27 10:57] LABS: INR 2.75 (0.8-1.2)
[2024-01-27 11:02] LABS: Alanine Aminotransferase 29 U/L (0-41); Albumin Level 3.9 g/dL (3.5-5.2); Alkaline Phosphatase 87 U/L (40-130); Aspartate Amino Transferase 25 U/L (0-40); Blood Urea Nitrogen 25 mg/dL (8-23); Calcium 9.6 mg/dL (8.5-10.5); Carbon Dioxide 22 mmol/L (22-29); Chloride 104 mmol/L (98-107); Globulin 3.2 g/dL (1.3-4.6); Glomerular Filtration Rate 43.7 mL/min (90-130); Glucose 145 mg/dL (65-115); Osmolality Calculated 297 mOsm/kg (285-295); Sodium 140 mmol/L (136-145); Total Bilirubin 0.7 mg/dL (0.15-1.2); Total Protein 7.1 g/dL (6.6-8.7)
[2024-01-27 11:07] LABS: Anion Gap 18.5 (5-19); Lactate Dehydrogenase 206 U/L (135-225); Potassium 4.5 mmol/L (3.5-5.1)
== END 2024-01-27 10:05 | disposition home or self-care (01) ==
LOC: LAB 10:10
PROVIDERS: PCP Registered Nurse
DX: Z79.01 Long term (current) use of anticoagulants (principal); Z95.811 Presence of heart assist device
CPT/HCPCS: 36415; 80053; 83615; 85025; 85610

== ENCOUNTER 2024-02-16 10:11 | Outpatient (CLI) | payer BC, MEDICAID, SELFPAY ==
[2024-02-16 10:48] LABS: Basophils # 0.1 10^3/uL (0.0-0.1); Basophils % 0.5 %; Eosinophils # 0.2 10^3/uL (0.0-0.8); Eosinophils % 1.2 %; Hematocrit 45.2 % (37-53); Lymphocytes # 9.1 10^3/uL (0.8-4.8); Mean Corpuscular HGB Conc 31.2 g/dL (30-55); Mean Corpuscular Volume 89.7 fl (82-101); Mean Platelet Volume 12.8 fL (7.4-10.4); Monocytes # 0.4 10^3/uL (0.2-0.9); Neutrophils # 5.05 10^3/uL (1.8-7.7); Neutrophils % 34.1 %; Nucleated Red Blood Cells % 0 %; Platelet Count 181 10^3/cmm (157-399); Red Blood Count 5.04 10^6/uL (3.85-5.65); Red Cell Distribution Width 14.1 % (12.1-15.1); White Blood Count 14.83 10^3/uL (3.29-11.43)
[2024-02-16 11:06] LABS: INR 2.56 (0.8-1.2)
[2024-02-16 11:16] LABS: Alanine Aminotransferase 26 U/L (0-41); Albumin Level 4.1 g/dL (3.5-5.2); Alkaline Phosphatase 86 U/L (40-130); Anion Gap 16.5 (5-19); Aspartate Amino Transferase 27 U/L (0-40); Blood Urea Nitrogen 31 mg/dL (8-23); Calcium 9.7 mg/dL (8.5-10.5); Carbon Dioxide 23 mmol/L (22-29); Chloride 103 mmol/L (98-107); Globulin 3.3 g/dL (1.3-4.6); Glomerular Filtration Rate 35.9 mL/min (90-130); Glucose 170 mg/dL (65-115); Lactate Dehydrogenase 182 U/L (135-225); Osmolality Calculated 297 mOsm/kg (285-295); Potassium 4.5 mmol/L (3.5-5.1); Sodium 138 mmol/L (136-145); Total Bilirubin 0.8 mg/dL (0.15-1.2); Total Protein 7.4 g/dL (6.6-8.7)
== END 2024-02-16 10:12 | disposition home or self-care (01) ==
LOC: LAB 10:15
PROVIDERS: PCP Registered Nurse; Visit Provider Internal Medicine
DX: Z79.01 Long term (current) use of anticoagulants (principal); Z95.811 Presence of heart assist device
CPT/HCPCS: 36415; 80053; 83615; 85025; 85610

== ENCOUNTER 2024-03-02 09:43 | Outpatient (CLI) | payer BC, MEDICAID, SELFPAY ==
[2024-03-02 10:01] LABS: Basophils # 0.1 10^3/uL (0.0-0.1); Basophils % 0.6 %; Eosinophils # 0.2 10^3/uL (0.0-0.8); Eosinophils % 1.1 %; Hematocrit 45.2 % (37-53); Lymphocytes # 12.1 10^3/uL (0.8-4.8); Lymphocytes % 67.8 %; Mean Corpuscular Hemoglobin 27.8 pg (27-33); Mean Corpuscular Volume 89.9 fl (82-101); Mean Platelet Volume 12.7 fL (7.4-10.4); Monocytes # 0.5 10^3/uL (0.2-0.9); Monocytes % 2.9 %; Neutrophils # 4.84 10^3/uL (1.8-7.7); Neutrophils % 27.3 %; Nucleated Red Blood Cells % 0 %; Platelet Count 173 10^3/cmm (157-399); Red Blood Count 5.03 10^6/uL (3.85-5.65); Red Cell Distribution Width 14.5 % (12.1-15.1); White Blood Count 17.77 10^3/uL (3.29-11.43)
[2024-03-02 10:12] LABS: INR 2.55 (0.8-1.2)
[2024-03-02 10:18] LABS: Alanine Aminotransferase 29 U/L (0-41); Albumin Level 4.1 g/dL (3.5-5.2); Alkaline Phosphatase 94 U/L (40-130); Anion Gap 18.5 (5-19); Aspartate Amino Transferase 26 U/L (0-40); Blood Urea Nitrogen 33 mg/dL (8-23); Calcium 9.6 mg/dL (8.5-10.5); Carbon Dioxide 21 mmol/L (22-29); Chloride 103 mmol/L (98-107); Globulin 2.9 g/dL (1.3-4.6); Glomerular Filtration Rate 40.8 mL/min (90-130); Glucose 155 mg/dL (65-115); Lactate Dehydrogenase 180 U/L (135-225); Osmolality Calculated 296 mOsm/kg (285-295); Potassium 4.5 mmol/L (3.5-5.1); Sodium 138 mmol/L (136-145); Total Bilirubin 0.7 mg/dL (0.15-1.2)
[2024-03-02 10:25] LABS: Estmated Average Glucose 134; Hemoglobin A1C 6.3 % (4.0-6.0)
== END 2024-03-02 09:44 | disposition home or self-care (01) ==
LOC: LAB 09:45
PROVIDERS: PCP Registered Nurse; Visit Provider Internal Medicine
DX: Z79.01 Long term (current) use of anticoagulants (principal); Z95.811 Presence of heart assist device
CPT/HCPCS: 36415; 80053; 83036; 83615; 85025; 85610

== ENCOUNTER 2024-03-07 10:57 | Outpatient (CLI) | payer BC, MEDICAID, SELFPAY | END 2024-03-07 10:58 | disposition home or self-care (01) | LOC: LAB 11:02 | PROVIDERS: PCP Registered Nurse; Visit Provider Internal Medicine | DX: Z01.89 Encounter for other specified special examinations (principal) | CPT/HCPCS: 36415; 87040 ==

== ENCOUNTER 2024-03-11 13:08 | Outpatient (CLI) | payer BC, MEDICAID, SELFPAY ==
--- NOTE | 2024-03-11 13:10 | CT_ITS ---
WS: [id number] CT CHEST, ABDOMEN AND PELVIS WITH CONTRAST HISTORY: INFECTION OF VENTRICULAR ASSIST DEVICE TECHNIQUE: Contiguous 5 mm axial imaging performed through the chest, abdomen and pelvis with IV cont rast, oral contrast has not been provided. Coronal and sagittal reformats chest. Coronal and sagittal reformats through the abdomen and pelvis. All CT scans at [facility] use at least one of the se dose optimization techniques: automated exposure control; mA and/or kV adjustment per patient size (includes targeted exams where dose is matched to clinical indication); or iterative reconstruction. CONTRAST: Omnipaque 350; 100 mL IV. DLP: 1530.48 mGy.cm COMPARISON: 04/23/2023, Chest CT: Dual lead LEFT subclavian defibrillator remains unchanged in position. Moderate LEFT heart enlargement Identified is a LEFT ventricular assist device which was present also on the prior examination. There is a very tiny soft tissue nodule measuring 9 x 16 mm at the LEFT ventricular apex and adjacent to t he LEFT ventricular assist device. This was not present on the prior study. Otherwise no change in th e LEFT ventricular assist device. Prior median sternotomy. No pulmonary mass, pneumonia or nodule. Mild atherosclerosis aorta. Normal s ize pulmonary artery. No chest wall mass or infection. Abdomen CT: No change in appearance of the LEFT ventricular assist wires. There is no abscess along the course of the subcutaneous wire. Hepatic and splenic granulomata. No mass. Normal portal vein. Normal gallbladder. Normal pancreas and adrenal glands. Mild cortical atrophy of each kidney. No obstruction. Scattered hypodensities within each kidney. No interval change. Mild atherosclerotic plaque abdominal aorta. More focal calcificati on at the celiac axis but no obstruction. Mild stenosis origin of the renal arteries. No ascites or adenopathy. No GI tract obstruction or colitis. Normal appendix. Small umbilical hernia contains fat. Pelvic CT: Moderately distended urinary bladder. Marked enlargement of the prostate gland encroaching into the bladder. Mild bladder wall thickening related to outlet obstruction. No destructive bone process. CT/CT chest abdpel w/*[id number] IMPRESSION: 1. There is a very tiny soft tissue collection measuring 9 x 16 mm at the LEFT ventricular apex closely associated with the LEFT ventricular assist device. N o significant amount of inflammation. This could potentially represent a small abscess or benign fluid pocket. New since 04/23/2023. Seen best on the axial imag e 4 of series 7. 2. Prior median sternotomy. 3. LEFT heart enlargement, unchanged. 4. Markedly enlarged heterogeneous prostate gland encroaching into the urinary bladder. 5. No renal obstruction. 6. Hepatic and splenic granulomata. 7. No pneumonia.
[2024-03-11] MEDS: iohexol 350 mg/mL 500 mL Btl (per mL) IV (14:05)
== END 2024-03-11 13:09 | disposition home or self-care (01) ==
LOC: RAD 13:09
PROVIDERS: PCP Registered Nurse; Visit Provider Internal Medicine
DX: T82.7XXA Infection and inflammatory reaction due to other cardiac and vascular devices, implants and grafts, initial encounter (principal); D72.829 Elevated white blood cell count, unspecified; Z98.890 Other specified postprocedural states; I51.7 Cardiomegaly; N40.0 Benign prostatic hyperplasia without lower urinary tract symptoms; K75.3 Granulomatous hepatitis, not elsewhere classified; D73.89 Other diseases of spleen; Z95.810 Presence of automatic (implantable) cardiac defibrillator; Z95.818 Presence of other cardiac implants and grafts; I70.0 Atherosclerosis of aorta; N26.1 Atrophy of kidney (terminal); R93.421 Abnormal radiologic findings on diagnostic imaging of right kidney; R93.422 Abnormal radiologic findings on diagnostic imaging of left kidney; R93.89 Abnormal findings on diagnostic imaging of other specified body structures; I70.1 Atherosclerosis of renal artery; K42.9 Umbilical hernia without obstruction or gangrene; R93.49 Abnormal radiologic findings on diagnostic imaging of other urinary organs; X58.XXXA Exposure to other specified factors, initial encounter
CPT/HCPCS: 71260; 74177

== ENCOUNTER 2024-03-16 08:05 | Outpatient (CLI) | payer BC, MEDICAID, SELFPAY ==
[2024-03-16 08:43] LABS: Basophils # 0.1 10^3/uL (0.0-0.1); Basophils % 0.4 %; Eosinophils # 0.2 10^3/uL (0.0-0.8); Eosinophils % 1.3 %; Hematocrit 42.3 % (37-53); Lymphocytes # 11.7 10^3/uL (0.8-4.8); Lymphocytes % 65.2 %; Mean Corpuscular HGB Conc 31.9 g/dL (30-55); Mean Corpuscular Hemoglobin 28.4 pg (27-33); Mean Corpuscular Volume 88.9 fl (82-101); Mean Platelet Volume 12.9 fL (7.4-10.4); Monocytes # 0.5 10^3/uL (0.2-0.9); Monocytes % 2.9 %; Neutrophils # 5.35 10^3/uL (1.8-7.7); Nucleated Red Blood Cells % 0 %; Platelet Count 159 10^3/cmm (157-399); Red Blood Count 4.76 10^6/uL (3.85-5.65); Red Cell Distribution Width 14.6 % (12.1-15.1); White Blood Count 17.86 10^3/uL (3.29-11.43)
[2024-03-16 08:54] LABS: INR 2.69 (0.8-1.2)
[2024-03-16 09:02] LABS: Alanine Aminotransferase 31 U/L (0-41); Alkaline Phosphatase 118 U/L (40-130); Anion Gap 16.5 (5-19); Aspartate Amino Transferase 27 U/L (0-40); Blood Urea Nitrogen 34 mg/dL (8-23); Calcium 9.6 mg/dL (8.5-10.5); Carbon Dioxide 21 mmol/L (22-29); Chloride 105 mmol/L (98-107); Globulin 3.2 g/dL (1.3-4.6); Glomerular Filtration Rate 43.7 mL/min (90-130); Glucose 159 mg/dL (65-115); Osmolality Calculated 297 mOsm/kg (285-295); Potassium 4.5 mmol/L (3.5-5.1); Sodium 138 mmol/L (136-145); Total Bilirubin 0.6 mg/dL (0.15-1.2); Total Protein 7.2 g/dL (6.6-8.7)
[2024-03-16 09:05] LABS: Lactate Dehydrogenase 180 U/L (135-225)
== END 2024-03-16 08:06 | disposition home or self-care (01) ==
LOC: LAB 08:08
PROVIDERS: PCP Registered Nurse; Visit Provider Registered Nurse
DX: Z79.01 Long term (current) use of anticoagulants (principal); Z95.811 Presence of heart assist device
CPT/HCPCS: 36415; 80053; 83615; 85025; 85610

== ENCOUNTER → 2024-03-23 11:58 | Day surgery (SDC) | payer BC, MEDICAID, SELFPAY ==
--- NOTE | 2024-03-23 12:02 | XR_ITS ---
WS: [id number] Portable AP semiupright chest, 03/23/2024 Clinical Data: post picc insertion Comparison: Portable chest, 08/04/2022 Findings: Right PICC line has been inserted to end in the superior vena cava. No pneumothorax is seen. The remainder of the chest shows a permanent pacemaker and mediastinal plates and screws.. XR/XR chest 1V portable [id number] Impression: Satisfactory insertion of right PICC line.
[2024-03-23 12:03] VITALS: BP 100/60; PULSE 72; RESP 16; TEMP 36.9; O2SAT 96
[2024-03-23] MEDS: DAPTOmycin 500 MG SDV 750 MG IVP (13:09)
[2024-03-23 13:11] LABS: Basophils # 0.1 10^3/uL (0.0-0.1); Basophils % 0.3 %; Eosinophils # 0.2 10^3/uL (0.0-0.8); Eosinophils % 0.9 %; Hematocrit 39.9 % (37-53); Lymphocytes # 10.6 10^3/uL (0.8-4.8); Lymphocytes % 65.6 %; Mean Corpuscular HGB Conc 32.1 g/dL (30-55); Mean Corpuscular Hemoglobin 28.1 pg (27-33); Mean Corpuscular Volume 87.7 fl (82-101); Monocytes # 0.5 10^3/uL (0.2-0.9); Monocytes % 2.8 %; Neutrophils # 4.89 10^3/uL (1.8-7.7); Neutrophils % 30.2 %; Nucleated Red Blood Cells % 0 %; Platelet Count 139 10^3/cmm (157-399); Red Blood Count 4.55 10^6/uL (3.85-5.65); Red Cell Distribution Width 15.1 % (12.1-15.1); White Blood Count 16.21 10^3/uL (3.29-11.43)
[2024-03-23] MEDS: ertapenem 1,000 mg SDV 1000 MG IVP (13:16)
--- NOTE | 2024-03-23 13:50 | PICC.NOTE ---
Double lumen PICC placed to right basilic vein. Referred to vascular access nurse for PICC placement due to infected LVAD drive line and need for IV antibiotics. Risks and benefits discussed and informed consent obtained from pt. Right arm assessed with right basilic vein measuring 5.9 mm, straight, and apparent best choice for placement. Using sterile technique and MST, right basilic vein accessed x 1 stick. Mid-arm circumference measured 10 cm from right AC 35 cm. Trimmed cath 45 cm with 1 cm external length noted. CXR shows tip in SVC, in good position for use per radiologist. Line secured with stat-lock. Insertion site covered with Biopatch and TSM. Pt given education on how to flush PICC before and after use and how to administer IV antibiotic via push. [facility] education mat provided and written instructions given. Pt verbalized understanding and states he has family at home that will be able to help with antibiotics if needed. Pt scheduled at [facility] infusion center for PICC dressing change 03/30/24 at 2:30 pm. Appointment card given. PICC report, CXR, and baseline lab results faxed to [facility] and Dr. Marin's office as requested.
[2024-03-23 14:38] LABS: Alanine Aminotransferase 28 U/L (0-41); Albumin Level 3.9 g/dL (3.5-5.2); Alkaline Phosphatase 79 U/L (40-130); Anion Gap 15.3 (5-19); Aspartate Amino Transferase 25 U/L (0-40); Blood Urea Nitrogen 30 mg/dL (8-23); Calcium 9.5 mg/dL (8.5-10.5); Carbon Dioxide 25 mmol/L (22-29); Chloride 101 mmol/L (98-107); Creatine Phosphokinase 75 U/L (39-308); Creatinine Clr Calc Pharmacy 60.3546; Globulin 2.9 g/dL (1.3-4.6); Glomerular Filtration Rate 43.7 mL/min (90-130); Glucose 143 mg/dL (65-115); Lactate Dehydrogenase 162 U/L (135-225); Osmolality Calculated 293 mOsm/kg (285-295); Potassium 4.3 mmol/L (3.5-5.1); Sodium 137 mmol/L (136-145); Total Bilirubin 0.6 mg/dL (0.15-1.2); Total Protein 6.8 g/dL (6.6-8.7)
== END ==
LOC: GILAB 11:58
PROVIDERS: PCP Registered Nurse; Visit Provider Internal Medicine
DX: Z45.2 Encounter for adjustment and management of vascular access device (principal)
CPT/HCPCS: 36573; 36592; 71045; 80053; 82550; 83615; 85025; 96374; J0878; J1335

== ENCOUNTER 2024-04-01 09:37 | Outpatient (CLI) | payer BC, MEDICAID, SELFPAY ==
[2024-04-01 10:13] LABS: Basophils # 0.1 10^3/uL (0.0-0.1); Basophils % 0.4 %; Eosinophils # 0.3 10^3/uL (0.0-0.8); Eosinophils % 1.7 %; Hematocrit 44.6 % (37-53); Lymphocytes # 13.7 10^3/uL (0.8-4.8); Lymphocytes % 68.6 %; Mean Corpuscular HGB Conc 31.4 g/dL (30-55); Mean Corpuscular Hemoglobin 27.9 pg (27-33); Mean Corpuscular Volume 88.8 fl (82-101); Mean Platelet Volume 12.4 fL (7.4-10.4); Monocytes # 0.5 10^3/uL (0.2-0.9); Monocytes % 2.6 %; Neutrophils % 26.5 %; Nucleated Red Blood Cells % 0 %; Platelet Count 175 10^3/cmm (157-399); Red Blood Count 5.02 10^6/uL (3.85-5.65); Red Cell Distribution Width 14.6 % (12.1-15.1); White Blood Count 19.98 10^3/uL (3.29-11.43)
[2024-04-01 10:24] LABS: INR 2.98 (0.8-1.2)
[2024-04-01 10:30] LABS: Alanine Aminotransferase 40 U/L (0-41); Alkaline Phosphatase 120 U/L (40-130); Aspartate Amino Transferase 37 U/L (0-40); Blood Urea Nitrogen 26 mg/dL (8-23); Calcium 9.5 mg/dL (8.5-10.5); Carbon Dioxide 22 mmol/L (22-29); Chloride 101 mmol/L (98-107); Creatine Phosphokinase 125 U/L (39-308); Globulin 3.3 g/dL (1.3-4.6); Glomerular Filtration Rate 43.7 mL/min (90-130); Glucose 158 mg/dL (65-115); Osmolality Calculated 292 mOsm/kg (285-295); Sodium 137 mmol/L (136-145); Total Bilirubin 0.7 mg/dL (0.15-1.2); Total Protein 7.3 g/dL (6.6-8.7)
[2024-04-01 10:39] LABS: Lactate Dehydrogenase 242 U/L (135-225)
== END 2024-04-01 09:38 | disposition home or self-care (01) ==
LOC: LAB 09:40
PROVIDERS: PCP Registered Nurse; Referring Provider Internal Medicine; Visit Provider Internal Medicine
DX: T82.7XXA Infection and inflammatory reaction due to other cardiac and vascular devices, implants and grafts, initial encounter (principal); X58.XXXA Exposure to other specified factors, initial encounter
CPT/HCPCS: 36415; 80053; 82550; 83615; 85025; 85610

== ENCOUNTER 2024-04-08 08:15 | Outpatient (CLI) | payer BC, MEDICAID, SELFPAY ==
[2024-04-08 09:22] LABS: Basophils # 0.1 10^3/uL (0.0-0.1); Basophils % 0.5 %; Eosinophils # 0.2 10^3/uL (0.0-0.8); Eosinophils % 1.2 %; Hematocrit 43.5 % (37-53); Lymphocytes # 14.7 10^3/uL (0.8-4.8); Lymphocytes % 71.1 %; Mean Corpuscular Hemoglobin 28.8 pg (27-33); Mean Corpuscular Volume 90.1 fl (82-101); Mean Platelet Volume 12.1 fL (7.4-10.4); Monocytes # 0.5 10^3/uL (0.2-0.9); Monocytes % 2.5 %; Neutrophils # 5.06 10^3/uL (1.8-7.7); Neutrophils % 24.5 %; Nucleated Red Blood Cells % 0 %; Platelet Count 169 10^3/cmm (157-399); Red Blood Count 4.83 10^6/uL (3.85-5.65); Red Cell Distribution Width 14.7 % (12.1-15.1); White Blood Count 20.65 10^3/uL (3.29-11.43)
[2024-04-08 09:36] LABS: INR 3.17 (0.8-1.2)
[2024-04-08 09:44] LABS: Alanine Aminotransferase 45 U/L (0-41); Alkaline Phosphatase 115 U/L (40-130); Anion Gap 17.6 (5-19); Aspartate Amino Transferase 38 U/L (0-40); Blood Urea Nitrogen 24 mg/dL (8-23); Calcium 9.7 mg/dL (8.5-10.5); Carbon Dioxide 23 mmol/L (22-29); Chloride 101 mmol/L (98-107); Globulin 3.3 g/dL (1.3-4.6); Glomerular Filtration Rate 43.7 mL/min (90-130); Glucose 138 mg/dL (65-115); Lactate Dehydrogenase 219 U/L (135-225); Osmolality Calculated 290 mOsm/kg (285-295); Potassium 4.6 mmol/L (3.5-5.1); Sodium 137 mmol/L (136-145); Total Bilirubin 0.7 mg/dL (0.15-1.2); Total Protein 7.3 g/dL (6.6-8.7)
== END 2024-04-08 08:16 | disposition home or self-care (01) ==
LOC: LAB 08:21
PROVIDERS: Absent Provider Internal Medicine; PCP Registered Nurse; Visit Provider Internal Medicine
DX: Z79.01 Long term (current) use of anticoagulants (principal); Z95.811 Presence of heart assist device; T82.7XXA Infection and inflammatory reaction due to other cardiac and vascular devices, implants and grafts, initial encounter; X58.XXXA Exposure to other specified factors, initial encounter
CPT/HCPCS: 80053; 83615; 85025; 85610; 87040

== ENCOUNTER 2024-04-08 10:09 | Outpatient (CLI) | payer BC, MEDICAID, SELFPAY ==
--- NOTE | 2024-04-08 11:15 | PETR_ITS ---
PROCEDURE INFORMATION: Exam: PET/CT Skull Base to Mid-thigh Exam date and time: 04/08/2024 11:13 AM Age: 63 years old Clinical indication: Leukocytosis; evaluate for infection of left ventricular assist device. About 3 x 1 cm pocket of fluid noted adjacent to LVAD on CT chest on 03/11/2024. LABS AND CLINICAL REPORTS: Glucose: 125 mg/dl Treatment strategy for malignancy (PET staging): Initial Staging (PI) TECHNIQUE: Imaging protocol: Following at least four-hour fasting and following the injection of radiopharmaceutical, low dose CT images were obtained. Then, PET images were obtained. Attenuation corrected images were constructed using the CT scan. Fused images of PET and CT were reviewed. The standardized uptake values (SUV) reported below are maximum values within a region of interest, expressed in gm/ml. Exam includes orbital meatal line to mid-thigh. SUV normalization method: BodyWeight Radiopharmaceutical: 11 mCi F-18 FDG (Fluorodeoxyglucose), IV. Time of imaging post radiopharmaceutical administration: 50 minutes Injection site: picc line right arm COMPARISON: CT chest abdomen pelvis with contrast 03/11/2024 and 04/23/2023 FINDINGS: Tubes, catheters and devices: Right PICC line terminates in the right atrium. Pacemaker is in the left anterior chest wall with 2 electrodes in the right atrium and right ventricle. Left ventricular assist device is in place. Brain: Normal physiologic uptake. Pharynx: No abnormal uptake. Larynx: No abnormal uptake. Thyroid: 1 cm nodule anteriorly to the trachea appears exophytic medially from the inferior aspect of the right thyroid lobe on axial image 70 measures 6.3 SUV stable in size since 04/23/2023 and 04/16/2019. Lungs, pleura and trachea: No abnormal uptake. No consolidation to suggest pneumonia. No suspicious nodules or masses. No pleural effusion. Heart: No abnormal uptake. Cardiomegaly. There is no pericardial effusion. Mediastinal space: No abnormal uptake. Liver: No abnormal uptake. Maximum uptake is 4.5 SUV. Punctate calcified granulomas. Gallbladder and biliary ducts: No abnormal uptake. No calcified gallstones. Pancreas: No abnormal uptake. Spleen: No abnormal uptake. No splenomegaly. Punctate calcified granulomas. Adrenal glands: No abnormal uptake. No nodules. Kidneys and ureters: Normal physiologic uptake. No hydronephrosis. Small simple cysts in the right kidney measuring up to 1.3 cm. Stomach and bowel: No abnormal uptake. Intraperitoneal and retroperitoneal spaces: No abnormal uptake. No ascites. Bladder: Normal physiologic uptake. Reproductive: No abnormal uptake. The prostate is significantly enlarged (7.2 x 6 x 7 cm) Vasculature: No abnormal uptake. No aortic aneurysm. Lymph nodes: No FDG avid lymphadenopathy in the neck, chest, abdomen, pelvis, and extremities. Skeleton: 0.9 x 0.5 cm focus of mildly increased uptake of 3.2 SUV in the right lateral aspect of the lower endplate of L3 with no corresponding lytic or sclerotic lesion on CT (axial image 201) is indeterminate. Status post sternotomy. Soft tissues: About 1 cm focus of increased uptake of 5.9 SUV (axial image 59-60) in the right supraclavicular subcutaneous fat appears at the distal end of the fluid-filled tract leading toward the right subclavian vein questionably representing the tract of prior central venous line or other device. 2 x 0.5 cm elongated soft tissue density in the left lateral gluteal area along the left fascia on axial image 244 with slightly increased uptake of 1.8 SUV is new since 04/23/2023. This area was not included in the more recent exam on 03/11/2024. There is benign uptake in the left anterior abdominal wall along the tract of the LVAD catheter measuring 4 SUV as seen on axial image 196. Intense linear uptake of 8.1 SUV anteriorly to the right femoral head likely represents benign finding. There is benign bilateral uptake laterally to the greater femoral trochanters. PET/PET skull to thigh INIT [id number] IMPRESSION: 1. No abnormal radiotracer uptake adjacent to LVAD in the location corresponding to the small elongated pocket of fluid documented on 03/11/2024 or elsewhere around the device. Slightly increased uptake of 4 SUV in the left anterior abdominal wall along the cutaneous entrance of the LVAD catheter with no CT abnormality is not concerning for an abscess. 2. 1 cm focus of increased uptake of 5.9 SUV in the right supraclavicular area at the distal tip of fluid-filled tract leading toward the right subclavian vein may represents focal inflammation within the residual tract left after prior line or device removal. Small abscess at this location is not excluded. 3. 0.9 x 0.5 cm focus of slightly increased uptake of 3.2 SUV in the right lateral aspect of the lower endplate of L3 with no corresponding CT abnormality is suggestive of inflammatory focus in this patient without known malignancy. While the nature of this uptake is indeterminate and nonspecific, osteomyelitis felt less likely than noninfectious inflammation due to non linear small loculated finding. 4. 1 cm right inferior paramedian thyroid nodule with abnormal increased uptake of 6.3 SUV is stable in size since 04/16/2019 making malignancy unlikely. Correlation with ultrasound is generally recommended for FDG avid thyroid nodules.
== END 2024-04-08 10:10 | disposition home or self-care (01) ==
PROVIDERS: PCP Registered Nurse; Visit Provider Internal Medicine
DX: T82.7XXA Infection and inflammatory reaction due to other cardiac and vascular devices, implants and grafts, initial encounter (principal); D72.829 Elevated white blood cell count, unspecified; X58.XXXA Exposure to other specified factors, initial encounter; R93.89 Abnormal findings on diagnostic imaging of other specified body structures; R93.7 Abnormal findings on diagnostic imaging of other parts of musculoskeletal system; E04.1 Nontoxic single thyroid nodule; Z96.89 Presence of other specified functional implants; I51.7 Cardiomegaly; K75.3 Granulomatous hepatitis, not elsewhere classified; D73.89 Other diseases of spleen; N28.1 Cyst of kidney, acquired; N40.0 Benign prostatic hyperplasia without lower urinary tract symptoms; Z98.890 Other specified postprocedural states
CPT/HCPCS: 78815; A9552

== ENCOUNTER 2024-04-13 07:59 | Outpatient (CLI) | payer BC, MEDICAID, SELFPAY ==
[2024-04-13 08:28] LABS: Hematocrit 43.2 % (37-53); Mean Corpuscular HGB Conc 31.7 g/dL (30-55); Mean Corpuscular Hemoglobin 27.8 pg (27-33); Mean Corpuscular Volume 87.8 fl (82-101); Mean Platelet Volume 12.5 fL (7.4-10.4); Platelet Count 173 10^3/cmm (157-399); Red Blood Count 4.92 10^6/uL (3.85-5.65); Red Cell Distribution Width 14.7 % (12.1-15.1); White Blood Count 22.09 10^3/uL (3.29-11.43)
[2024-04-13 08:45] LABS: INR 3.15 (0.8-1.2)
[2024-04-13 08:54] LABS: Alanine Aminotransferase 43 U/L (0-41); Alkaline Phosphatase 118 U/L (40-130); Aspartate Amino Transferase 34 U/L (0-40); Blood Urea Nitrogen 28 mg/dL (8-23); Calcium 9.4 mg/dL (8.5-10.5); Carbon Dioxide 22 mmol/L (22-29); Chloride 104 mmol/L (98-107); Creatine Phosphokinase 191 U/L (39-308); Globulin 3.4 g/dL (1.3-4.6); Glomerular Filtration Rate 40.8 mL/min (90-130); Glucose 154 mg/dL (65-115); Osmolality Calculated 299 mOsm/kg (285-295); Sodium 140 mmol/L (136-145); Total Bilirubin 0.6 mg/dL (0.15-1.2); Total Protein 7.4 g/dL (6.6-8.7)
[2024-04-13 08:59] LABS: Slide Review Slide Review Perform
[2024-04-13 09:00] LABS: Absolute Eosinophils 0.4 10^3/cmm (0.0-0.7); Absolute Neutrophil 7.7 10^3/cmm (1.4-6.5); Absolute Segmented Neutrophil 6.8 10/cmm (1.6-7.1); Anion Gap 18.8 (5-19); Band Neutrophils Absolute 0.9 10^3/cmm (0.0-1.2); Eosinophils 2 %; Lactate Dehydrogenase 233 U/L (135-225); Lymphocytes 33 %; Lymphocytes Absolute 12.8 10^3/cmm (1.2-3.4); Monocytes Absolute 1.1 10^3/cmm (0.1-0.6); Platelet Estimate Decreased (Normal); Potassium 4.8 mmol/L (3.5-5.1); Segmented Neutrophils 31 %; Total Cells Counted 100 (0-100)
== END 2024-04-13 08:00 | disposition home or self-care (01) ==
LOC: LAB 08:04
PROVIDERS: Absent Provider Internal Medicine; PCP Registered Nurse; Visit Provider Internal Medicine
DX: Z79.01 Long term (current) use of anticoagulants (principal); Z95.811 Presence of heart assist device; T82.7XXA Infection and inflammatory reaction due to other cardiac and vascular devices, implants and grafts, initial encounter; X58.XXXA Exposure to other specified factors, initial encounter
CPT/HCPCS: 36415; 80053; 82550; 83615; 85007; 85025; 85610

== ENCOUNTER 2024-04-13 09:00 | Oncology outpatient (recurring) (ONCR) | payer BC, MEDICAID, SELFPAY ==
[2024-03-30 15:52] LABS: Basophils # 0.1 10^3/uL (0.0-0.1); Basophils % 0.4 %; Eosinophils # 0.2 10^3/uL (0.0-0.8); Eosinophils % 1.1 %; Hematocrit 40.6 % (37-53); Lymphocytes # 13.2 10^3/uL (0.8-4.8); Lymphocytes % 69.9 %; Mean Corpuscular HGB Conc 31.8 g/dL (30-55); Mean Corpuscular Hemoglobin 28.2 pg (27-33); Mean Corpuscular Volume 88.6 fl (82-101); Mean Platelet Volume 13.7 fL (7.4-10.4); Monocytes # 0.5 10^3/uL (0.2-0.9); Monocytes % 2.8 %; Neutrophils # 4.79 10^3/uL (1.8-7.7); Neutrophils % 25.5 %; Nucleated Red Blood Cells % 0 %; Platelet Count 136 10^3/cmm (157-399); Red Blood Count 4.58 10^6/uL (3.85-5.65); Red Cell Distribution Width 15.2 % (12.1-15.1); White Blood Count 18.82 10^3/uL (3.29-11.43)
--- NOTE | 2024-03-30 15:59 | PC.NURSE ---
Received call from lab stating pts blue and green top tubes hemolyzed. Called pt, pt states he is already headed home and will try to come thursday. Notified pt that if it's before 12 on thursday, we can redraw him in the infusion room. He states he might go to the [facility] lab to have labs redrawn.
[2024-03-30 16:12] LABS: Slide Review Slide Review Perform
== END 2024-04-15 23:59 | disposition home or self-care (01) ==
PROVIDERS: PCP Registered Nurse; Visit Provider Internal Medicine
DX: T82.7XXA Infection and inflammatory reaction due to other cardiac and vascular devices, implants and grafts, initial encounter; Y71.2 Prosthetic and other implants, materials and accessory cardiovascular devices associated with adverse incidents; Z95.828 Presence of other vascular implants and grafts; Z53.9 Procedure and treatment not carried out, unspecified reason
CPT/HCPCS: 36592; 85025

== ENCOUNTER 2024-04-20 08:10 | Outpatient (CLI) | payer BC, MEDICAID, SELFPAY ==
[2024-04-20 09:31] LABS: Basophils # 0.1 10^3/uL (0.0-0.1); Basophils % 0.5 %; Eosinophils # 0.2 10^3/uL (0.0-0.8); Eosinophils % 1.1 %; Hematocrit 42.2 % (37-53); Lymphocytes # 15.5 10^3/uL (0.8-4.8); Lymphocytes % 70.9 %; Mean Corpuscular Volume 93.6 fl (82-101); Mean Platelet Volume 12.3 fL (7.4-10.4); Monocytes # 0.6 10^3/uL (0.2-0.9); Monocytes % 2.7 %; Neutrophils # 5.36 10^3/uL (1.8-7.7); Neutrophils % 24.4 %; Nucleated Red Blood Cells % 0 %; Platelet Count 186 10^3/cmm (157-399); Red Blood Count 4.51 10^6/uL (3.85-5.65); Red Cell Distribution Width 15.2 % (12.1-15.1); White Blood Count 21.86 10^3/uL (3.29-11.43)
[2024-04-20 09:47] LABS: INR 2.68 (0.8-1.2)
[2024-04-20 09:53] LABS: Alanine Aminotransferase 39 U/L (0-41); Albumin Level 4.1 g/dL (3.5-5.2); Alkaline Phosphatase 108 U/L (40-130); Aspartate Amino Transferase 28 U/L (0-40); Blood Urea Nitrogen 41 mg/dL (8-23); Calcium 9.7 mg/dL (8.5-10.5); Carbon Dioxide 20 mmol/L (22-29); Chloride 104 mmol/L (98-107); Creatine Phosphokinase 74 U/L (39-308); Glomerular Filtration Rate 40.8 mL/min (90-130); Glucose 160 mg/dL (65-115); Osmolality Calculated 298 mOsm/kg (285-295); Sodium 137 mmol/L (136-145); Total Bilirubin 0.7 mg/dL (0.15-1.2); Total Protein 7.1 g/dL (6.6-8.7)
[2024-04-20 10:00] LABS: Anion Gap 17.9 (5-19); Lactate Dehydrogenase 224 U/L (135-225); Potassium 4.9 mmol/L (3.5-5.1)
== END 2024-04-20 08:11 | disposition home or self-care (01) ==
LOC: LAB 08:14
PROVIDERS: Absent Provider Internal Medicine; PCP Registered Nurse; Visit Provider Internal Medicine
DX: T82.7XXA Infection and inflammatory reaction due to other cardiac and vascular devices, implants and grafts, initial encounter (principal); X58.XXXA Exposure to other specified factors, initial encounter; Z79.01 Long term (current) use of anticoagulants; Z95.811 Presence of heart assist device
CPT/HCPCS: 36415; 80053; 82550; 83615; 85025; 85610

== ENCOUNTER 2024-04-20 08:33 | Oncology outpatient (recurring) (ONCR) | payer BC, MEDICAID, SELFPAY | END 2024-05-16 23:59 | disposition home or self-care (01) | LOC: ONCMED 08:33 | PROVIDERS: PCP Registered Nurse; Visit Provider Internal Medicine | DX: T82.7XXA Infection and inflammatory reaction due to other cardiac and vascular devices, implants and grafts, initial encounter (principal); X58.XXXA Exposure to other specified factors, initial encounter; Z45.2 Encounter for adjustment and management of vascular access device ==

== ENCOUNTER 2024-04-27 09:48 | Outpatient (CLI) | payer BC, MEDICAID, SELFPAY ==
[2024-04-27 10:41] LABS: Basophils # 0.1 10^3/uL (0.0-0.1); Basophils % 0.4 %; Eosinophils # 0.3 10^3/uL (0.0-0.8); Eosinophils % 1.2 %; Hematocrit 39.1 % (37-53); Lymphocytes # 14.9 10^3/uL (0.8-4.8); Lymphocytes % 70.3 %; Mean Corpuscular Hemoglobin 28.6 pg (27-33); Mean Corpuscular Volume 89.5 fl (82-101); Mean Platelet Volume 12.8 fL (7.4-10.4); Monocytes # 0.5 10^3/uL (0.2-0.9); Monocytes % 2.4 %; Neutrophils # 5.42 10^3/uL (1.8-7.7); Neutrophils % 25.5 %; Nucleated Red Blood Cells % 0 %; Platelet Count 189 10^3/cmm (157-399); Red Blood Count 4.37 10^6/uL (3.85-5.65); Red Cell Distribution Width 15.2 % (12.1-15.1); White Blood Count 21.25 10^3/uL (3.29-11.43)
[2024-04-27 10:54] LABS: INR 2.29 (0.8-1.2)
[2024-04-27 10:59] LABS: Alanine Aminotransferase 24 U/L (0-41); Alkaline Phosphatase 106 U/L (40-130); Anion Gap 15.4 (5-19); Aspartate Amino Transferase 20 U/L (0-40); Blood Urea Nitrogen 35 mg/dL (8-23); Calcium 9.6 mg/dL (8.5-10.5); Carbon Dioxide 22 mmol/L (22-29); Chloride 103 mmol/L (98-107); Creatine Phosphokinase 71 U/L (39-308); Globulin 2.9 g/dL (1.3-4.6); Glomerular Filtration Rate 43.7 mL/min (90-130); Glucose 161 mg/dL (65-115); Lactate Dehydrogenase 186 U/L (135-225); Osmolality Calculated 293 mOsm/kg (285-295); Potassium 4.4 mmol/L (3.5-5.1); Sodium 136 mmol/L (136-145); Total Bilirubin 0.7 mg/dL (0.15-1.2); Total Protein 6.9 g/dL (6.6-8.7)
== END 2024-04-27 09:49 | disposition home or self-care (01) ==
PROVIDERS: PCP Registered Nurse; Visit Provider Internal Medicine
DX: Z79.01 Long term (current) use of anticoagulants (principal); Z95.811 Presence of heart assist device
CPT/HCPCS: 36415; 80053; 82550; 83615; 85025; 85610

== ENCOUNTER 2024-05-04 09:32 | Outpatient (CLI) | payer BC, MEDICAID, SELFPAY ==
[2024-05-04 11:23] LABS: Basophils # 0.1 10^3/uL (0.0-0.1); Basophils % 0.4 %; Eosinophils # 0.2 10^3/uL (0.0-0.8); Eosinophils % 0.7 %; Hematocrit 40.6 % (37-53); Lymphocytes # 17.7 10^3/uL (0.8-4.8); Lymphocytes % 76.7 %; Mean Corpuscular Hemoglobin 28.6 pg (27-33); Mean Corpuscular Volume 89.2 fl (82-101); Monocytes # 0.5 10^3/uL (0.2-0.9); Monocytes % 2.2 %; Neutrophils # 4.56 10^3/uL (1.8-7.7); Neutrophils % 19.7 %; Nucleated Red Blood Cells % 0 %; Platelet Count 173 10^3/cmm (157-399); Red Blood Count 4.55 10^6/uL (3.85-5.65); Red Cell Distribution Width 15.6 % (12.1-15.1); White Blood Count 23.08 10^3/uL (3.29-11.43)
[2024-05-04 11:31] LABS: INR 2.75 (0.8-1.2)
[2024-05-04 11:55] LABS: Alanine Aminotransferase 30 U/L (0-41); Albumin Level 4.2 g/dL (3.5-5.2); Alkaline Phosphatase 107 U/L (40-130); Anion Gap 20.4 (5-19); Aspartate Amino Transferase 24 U/L (0-40); Blood Urea Nitrogen 40 mg/dL (8-23); Calcium 9.6 mg/dL (8.5-10.5); Carbon Dioxide 21 mmol/L (22-29); Chloride 103 mmol/L (98-107); Globulin 2.9 g/dL (1.3-4.6); Glomerular Filtration Rate 38.2 mL/min (90-130); Glucose 192 mg/dL (65-115); Lactate Dehydrogenase 172 U/L (135-225); Osmolality Calculated 305 mOsm/kg (285-295); Potassium 4.4 mmol/L (3.5-5.1); Sodium 140 mmol/L (136-145); Total Bilirubin 0.6 mg/dL (0.15-1.2); Total Protein 7.1 g/dL (6.6-8.7)
== END 2024-05-04 09:33 | disposition home or self-care (01) ==
LOC: LAB 09:37
PROVIDERS: PCP Registered Nurse; Visit Provider Internal Medicine
DX: T82.7XXA Infection and inflammatory reaction due to other cardiac and vascular devices, implants and grafts, initial encounter (principal); X58.XXXA Exposure to other specified factors, initial encounter; Z79.01 Long term (current) use of anticoagulants; Z95.811 Presence of heart assist device
CPT/HCPCS: 36415; 80053; 83615; 85025; 85610

== ENCOUNTER 2024-05-11 09:14 | Outpatient (CLI) | payer BC, MEDICAID, SELFPAY ==
[2024-05-11 09:57] LABS: Basophils # 0.1 10^3/uL (0.0-0.1); Basophils % 0.4 %; Eosinophils # 0.2 10^3/uL (0.0-0.8); Eosinophils % 0.9 %; Hematocrit 40.5 % (37-53); Lymphocytes # 16.3 10^3/uL (0.8-4.8); Lymphocytes % 71.4 %; Mean Corpuscular HGB Conc 32.1 g/dL (30-55); Mean Corpuscular Hemoglobin 28.2 pg (27-33); Mean Corpuscular Volume 87.9 fl (82-101); Mean Platelet Volume 12.6 fL (7.4-10.4); Monocytes # 0.5 10^3/uL (0.2-0.9); Monocytes % 2.3 %; Neutrophils # 5.61 10^3/uL (1.8-7.7); Neutrophils % 24.7 %; Nucleated Red Blood Cells % 0 %; Platelet Count 168 10^3/cmm (157-399); Red Blood Count 4.61 10^6/uL (3.85-5.65); Red Cell Distribution Width 15.3 % (12.1-15.1); White Blood Count 22.76 10^3/uL (3.29-11.43)
[2024-05-11 10:25] LABS: Alanine Aminotransferase 29 U/L (0-41); Albumin Level 4.1 g/dL (3.5-5.2); Alkaline Phosphatase 111 U/L (40-130); Anion Gap 18.2 (5-19); Aspartate Amino Transferase 27 U/L (0-40); Blood Urea Nitrogen 33 mg/dL (8-23); Calcium 9.4 mg/dL (8.5-10.5); Carbon Dioxide 23 mmol/L (22-29); Chloride 104 mmol/L (98-107); Creatine Phosphokinase 56 U/L (39-308); Globulin 2.9 g/dL (1.3-4.6); Glomerular Filtration Rate 38.2 mL/min (90-130); Glucose 173 mg/dL (65-115); Lactate Dehydrogenase 180 U/L (135-225); Osmolality Calculated 303 mOsm/kg (285-295); Potassium 4.2 mmol/L (3.5-5.1); Sodium 141 mmol/L (136-145); Total Bilirubin 0.7 mg/dL (0.15-1.2)
== END 2024-05-11 09:15 | disposition home or self-care (01) ==
LOC: LAB 09:19
PROVIDERS: PCP Registered Nurse; Visit Provider Internal Medicine
DX: T82.7XXA Infection and inflammatory reaction due to other cardiac and vascular devices, implants and grafts, initial encounter (principal); Z79.01 Long term (current) use of anticoagulants; Z95.811 Presence of heart assist device; X58.XXXA Exposure to other specified factors, initial encounter
CPT/HCPCS: 36415; 80053; 82550; 83615; 85025; 85610

== ENCOUNTER 2024-05-25 09:20 | Outpatient (CLI) | payer BC, MEDICAID, SELFPAY ==
[2024-05-25 10:05] LABS: Basophils # 0.1 10^3/uL (0.0-0.1); Basophils % 0.4 %; Eosinophils # 0.1 10^3/uL (0.0-0.8); Eosinophils % 0.6 %; Hematocrit 41.3 % (37-53); Lymphocytes # 16.2 10^3/uL (0.8-4.8); Lymphocytes % 74.7 %; Mean Corpuscular HGB Conc 32.2 g/dL (30-55); Mean Corpuscular Hemoglobin 28.7 pg (27-33); Mean Corpuscular Volume 89.2 fl (82-101); Mean Platelet Volume 12.7 fL (7.4-10.4); Monocytes # 0.5 10^3/uL (0.2-0.9); Monocytes % 2.4 %; Neutrophils # 4.71 10^3/uL (1.8-7.7); Neutrophils % 21.7 %; Nucleated Red Blood Cells % 0 %; Platelet Count 146 10^3/cmm (157-399); Red Blood Count 4.63 10^6/uL (3.85-5.65); Red Cell Distribution Width 15.1 % (12.1-15.1); White Blood Count 21.64 10^3/uL (3.29-11.43)
[2024-05-25 10:20] LABS: INR 3.17 (0.8-1.2)
[2024-05-25 10:29] LABS: Alanine Aminotransferase 34 U/L (0-41); Albumin Level 4.1 g/dL (3.5-5.2); Alkaline Phosphatase 89 U/L (40-130); Anion Gap 19.5 (5-19); Aspartate Amino Transferase 28 U/L (0-40); Blood Urea Nitrogen 30 mg/dL (8-23); Calcium 9.6 mg/dL (8.5-10.5); Carbon Dioxide 21 mmol/L (22-29); Chloride 106 mmol/L (98-107); Creatine Phosphokinase 85 U/L (39-308); Globulin 2.9 g/dL (1.3-4.6); Glomerular Filtration Rate 38.2 mL/min (90-130); Glucose 171 mg/dL (65-115); Lactate Dehydrogenase 185 U/L (135-225); Osmolality Calculated 304 mOsm/kg (285-295); Potassium 4.5 mmol/L (3.5-5.1); Sodium 142 mmol/L (136-145); Total Bilirubin 0.7 mg/dL (0.15-1.2)
== END 2024-05-25 09:21 | disposition home or self-care (01) ==
PROVIDERS: PCP Registered Nurse; Visit Provider Internal Medicine
DX: T82.7XXA Infection and inflammatory reaction due to other cardiac and vascular devices, implants and grafts, initial encounter (principal); X58.XXXA Exposure to other specified factors, initial encounter; Z79.01 Long term (current) use of anticoagulants; Z95.811 Presence of heart assist device
CPT/HCPCS: 36415; 80053; 82550; 83615; 85025; 85610

== ENCOUNTER 2024-06-08 09:40 | Outpatient (CLI) | payer BC, MEDICAID, SELFPAY ==
[2024-06-08 10:58] LABS: Basophils # 0.1 10^3/uL (0.0-0.1); Basophils % 0.3 %; Eosinophils # 0.2 10^3/uL (0.0-0.8); Eosinophils % 0.6 %; Hematocrit 40.7 % (37-53); Lymphocytes # 18.9 10^3/uL (0.8-4.8); Lymphocytes % 75.5 %; Mean Corpuscular HGB Conc 32.2 g/dL (30-55); Mean Corpuscular Hemoglobin 28.8 pg (27-33); Mean Corpuscular Volume 89.5 fl (82-101); Mean Platelet Volume 12.3 fL (7.4-10.4); Monocytes # 0.5 10^3/uL (0.2-0.9); Neutrophils # 5.36 10^3/uL (1.8-7.7); Neutrophils % 21.4 %; Nucleated Red Blood Cells % 0 %; Platelet Count 156 10^3/cmm (157-399); Red Blood Count 4.55 10^6/uL (3.85-5.65); Red Cell Distribution Width 15.1 % (12.1-15.1); White Blood Count 25.04 10^3/uL (3.29-11.43)
[2024-06-08 11:15] LABS: INR 2.61 (0.8-1.2)
[2024-06-08 11:24] LABS: Alanine Aminotransferase 38 U/L (0-41); Albumin Level 4.2 g/dL (3.5-5.2); Alkaline Phosphatase 103 U/L (40-130); Anion Gap 17.5 (5-19); Aspartate Amino Transferase 35 U/L (0-40); Blood Urea Nitrogen 28 mg/dL (8-23); Calcium 9.2 mg/dL (8.5-10.5); Carbon Dioxide 21 mmol/L (22-29); Chloride 106 mmol/L (98-107); Creatine Phosphokinase 74 U/L (39-308); Glomerular Filtration Rate 38.2 mL/min (90-130); Glucose 163 mg/dL (65-115); Osmolality Calculated 299 mOsm/kg (285-295); Potassium 4.5 mmol/L (3.5-5.1); Sodium 140 mmol/L (136-145); Total Bilirubin 0.7 mg/dL (0.15-1.2); Total Protein 7.2 g/dL (6.6-8.7)
[2024-06-08 11:32] LABS: Lactate Dehydrogenase 216 U/L (135-225)
[2024-06-08 11:53] LABS: Slide Review Slide Review Perform
== END 2024-06-08 09:41 | disposition home or self-care (01) ==
PROVIDERS: Absent Provider Internal Medicine; PCP Registered Nurse; Visit Provider Internal Medicine
DX: T82.7XXA Infection and inflammatory reaction due to other cardiac and vascular devices, implants and grafts, initial encounter (principal); X58.XXXA Exposure to other specified factors, initial encounter; Z79.01 Long term (current) use of anticoagulants; Z79.811 Long term (current) use of aromatase inhibitors
CPT/HCPCS: 36415; 80053; 82550; 83615; 85025; 85610

== ENCOUNTER 2024-06-15 10:29 | Outpatient (CLI) | payer BC, MEDICAID, SELFPAY ==
[2024-06-15 10:57] LABS: Basophils # 0.1 10^3/uL (0.0-0.1); Basophils % 0.4 %; Eosinophils # 0.2 10^3/uL (0.0-0.8); Eosinophils % 0.7 %; Hematocrit 41.2 % (37-53); Lymphocytes # 21.2 10^3/uL (0.8-4.8); Lymphocytes % 74.9 %; Mean Corpuscular HGB Conc 31.8 g/dL (30-55); Mean Corpuscular Hemoglobin 28.4 pg (27-33); Mean Corpuscular Volume 89.2 fl (82-101); Mean Platelet Volume 12.6 fL (7.4-10.4); Monocytes # 0.6 10^3/uL (0.2-0.9); Monocytes % 2.1 %; Neutrophils # 6.14 10^3/uL (1.8-7.7); Neutrophils % 21.7 %; Nucleated Red Blood Cells % 0 %; Platelet Count 170 10^3/cmm (157-399); Red Blood Count 4.62 10^6/uL (3.85-5.65); Red Cell Distribution Width 14.9 % (12.1-15.1); White Blood Count 28.33 10^3/uL (3.29-11.43)
[2024-06-15 11:08] LABS: INR 2.47 (0.8-1.2)
[2024-06-15 11:14] LABS: Alanine Aminotransferase 29 U/L (0-41); Albumin Level 4.1 g/dL (3.5-5.2); Alkaline Phosphatase 96 U/L (40-130); Anion Gap 18.6 (5-19); Aspartate Amino Transferase 28 U/L (0-40); Blood Urea Nitrogen 35 mg/dL (8-23); Calcium 9.4 mg/dL (8.5-10.5); Carbon Dioxide 21 mmol/L (22-29); Chloride 102 mmol/L (98-107); Creatine Phosphokinase 77 U/L (39-308); Globulin 3.1 g/dL (1.3-4.6); Glomerular Filtration Rate 38.2 mL/min (90-130); Glucose 154 mg/dL (65-115); Lactate Dehydrogenase 204 U/L (135-225); Osmolality Calculated 295 mOsm/kg (285-295); Potassium 4.6 mmol/L (3.5-5.1); Sodium 137 mmol/L (136-145); Total Bilirubin 0.8 mg/dL (0.15-1.2); Total Protein 7.2 g/dL (6.6-8.7)
== END 2024-06-15 10:30 | disposition home or self-care (01) ==
PROVIDERS: Absent Provider Internal Medicine; PCP Registered Nurse; Visit Provider Internal Medicine
DX: T82.7XXA Infection and inflammatory reaction due to other cardiac and vascular devices, implants and grafts, initial encounter (principal); X58.XXXA Exposure to other specified factors, initial encounter; Z79.01 Long term (current) use of anticoagulants; Z95.811 Presence of heart assist device
CPT/HCPCS: 80053; 82550; 83615; 85025; 85610

== ENCOUNTER 2024-06-29 08:54 | Outpatient (CLI) | payer BC, MEDICAID, SELFPAY ==
[2024-06-29 09:41] LABS: Basophils # 0.1 10^3/uL (0.0-0.1); Basophils % 0.3 %; Eosinophils # 0.2 10^3/uL (0.0-0.8); Eosinophils % 0.7 %; Hematocrit 40.1 % (37-53); Lymphocytes % 78.6 %; Mean Corpuscular HGB Conc 32.2 g/dL (30-55); Mean Corpuscular Hemoglobin 28.8 pg (27-33); Mean Corpuscular Volume 89.5 fl (82-101); Mean Platelet Volume 12.6 fL (7.4-10.4); Monocytes # 0.6 10^3/uL (0.2-0.9); Monocytes % 2.2 %; Neutrophils # 5.06 10^3/uL (1.8-7.7); Neutrophils % 18.1 %; Nucleated Red Blood Cells % 0 %; Platelet Count 150 10^3/cmm (157-399); Red Blood Count 4.48 10^6/uL (3.85-5.65); Red Cell Distribution Width 14.9 % (12.1-15.1); White Blood Count 27.98 10^3/uL (3.29-11.43)
[2024-06-29 09:55] LABS: INR 2.28 (0.8-1.2)
[2024-06-29 09:59] LABS: Alanine Aminotransferase 41 U/L (0-41); Alkaline Phosphatase 113 U/L (40-130); Anion Gap 18.2 (5-19); Aspartate Amino Transferase 39 U/L (0-40); Blood Urea Nitrogen 37 mg/dL (8-23); Calcium 9.4 mg/dL (8.5-10.5); Carbon Dioxide 21 mmol/L (22-29); Chloride 104 mmol/L (98-107); Creatine Phosphokinase 82 U/L (39-308); Globulin 3.1 g/dL (1.3-4.6); Glomerular Filtration Rate 33.8 mL/min (90-130); Glucose 191 mg/dL (65-115); Lactate Dehydrogenase 199 U/L (135-225); Osmolality Calculated 302 mOsm/kg (285-295); Potassium 4.2 mmol/L (3.5-5.1); Sodium 139 mmol/L (136-145); Total Bilirubin 0.7 mg/dL (0.15-1.2); Total Protein 7.1 g/dL (6.6-8.7)
== END 2024-06-29 08:55 | disposition home or self-care (01) ==
PROVIDERS: Absent Provider Internal Medicine; PCP Registered Nurse; Visit Provider Internal Medicine
DX: Z79.01 Long term (current) use of anticoagulants (principal); Z95.811 Presence of heart assist device
CPT/HCPCS: 36415; 80053; 82550; 83615; 85025; 85610

== ENCOUNTER 2024-07-20 09:09 | Outpatient (CLI) | payer MEDICAID, SELFPAY ==
[2024-07-20 09:50] LABS: Basophils # 0.1 10^3/uL (0.0-0.1); Basophils % 0.3 %; Eosinophils # 0.3 10^3/uL (0.0-0.8); Hematocrit 39.3 % (37-53); Lymphocytes # 19.8 10^3/uL (0.8-4.8); Lymphocytes % 75.7 %; Mean Corpuscular HGB Conc 32.1 g/dL (30-55); Mean Corpuscular Hemoglobin 29.1 pg (27-33); Mean Corpuscular Volume 90.8 fl (82-101); Mean Platelet Volume 12.7 fL (7.4-10.4); Monocytes # 0.6 10^3/uL (0.2-0.9); Monocytes % 2.1 %; Neutrophils % 20.7 %; Nucleated Red Blood Cells % 0 %; Platelet Count 150 10^3/cmm (157-399); Red Blood Count 4.33 10^6/uL (3.85-5.65); Red Cell Distribution Width 14.8 % (12.1-15.1); White Blood Count 26.19 10^3/uL (3.29-11.43)
[2024-07-20 10:17] LABS: Alanine Aminotransferase 40 U/L (0-41); Albumin Level 4.1 g/dL (3.5-5.2); Alkaline Phosphatase 94 U/L (40-130); Anion Gap 16.4 (5-19); Aspartate Amino Transferase 29 U/L (0-40); Blood Urea Nitrogen 28 mg/dL (8-23); Calcium 9.5 mg/dL (8.5-10.5); Carbon Dioxide 23 mmol/L (22-29); Chloride 103 mmol/L (98-107); Creatine Phosphokinase 64 U/L (39-308); Globulin 3.1 g/dL (1.3-4.6); Glomerular Filtration Rate 40.8 mL/min (90-130); Glucose 144 mg/dL (65-115); Lactate Dehydrogenase 184 U/L (135-225); Osmolality Calculated 294 mOsm/kg (285-295); Potassium 4.4 mmol/L (3.5-5.1); Sodium 138 mmol/L (136-145); Total Bilirubin 0.8 mg/dL (0.15-1.2); Total Protein 7.2 g/dL (6.6-8.7)
== END 2024-07-20 09:10 | disposition home or self-care (01) ==
PROVIDERS: PCP Registered Nurse; Visit Provider Internal Medicine
DX: Z79.01 Long term (current) use of anticoagulants (principal); Z95.811 Presence of heart assist device; T82.7XXA Infection and inflammatory reaction due to other cardiac and vascular devices, implants and grafts, initial encounter; X58.XXXA Exposure to other specified factors, initial encounter
CPT/HCPCS: 80053; 82550; 83615; 85025; 85610

== ENCOUNTER 2024-08-03 08:28 | Outpatient (CLI) | payer MEDICARE, MEDICAID, SELFPAY ==
[2024-08-03 09:27] LABS: Basophils # 0.1 10^3/uL (0.0-0.1); Basophils % 0.4 %; Eosinophils # 0.2 10^3/uL (0.0-0.8); Eosinophils % 0.9 %; Hematocrit 41.2 % (37-53); Lymphocytes % 78.7 %; Mean Corpuscular HGB Conc 31.1 g/dL (30-55); Mean Corpuscular Hemoglobin 28.7 pg (27-33); Mean Corpuscular Volume 92.4 fl (82-101); Mean Platelet Volume 12.9 fL (7.4-10.4); Monocytes # 0.5 10^3/uL (0.2-0.9); Neutrophils # 4.52 10^3/uL (1.8-7.7); Neutrophils % 17.8 %; Nucleated Red Blood Cells % 0.1 %; Platelet Count 163 10^3/cmm (157-399); Red Blood Count 4.46 10^6/uL (3.85-5.65); Red Cell Distribution Width 14.6 % (12.1-15.1); White Blood Count 25.36 10^3/uL (3.29-11.43)
[2024-08-03 09:41] LABS: INR 2.25 (0.8-1.2)
[2024-08-03 09:46] LABS: Alanine Aminotransferase 26 U/L (0-41); Alkaline Phosphatase 103 U/L (40-130); Blood Urea Nitrogen 23 mg/dL (8-23); Calcium 9.5 mg/dL (8.5-10.5); Carbon Dioxide 22 mmol/L (22-29); Chloride 107 mmol/L (98-107); Creatine Phosphokinase 74 U/L (39-308); Globulin 3.1 g/dL (1.3-4.6); Glomerular Filtration Rate 47.1 mL/min (90-130); Glucose 133 mg/dL (65-115); Osmolality Calculated 296 mOsm/kg (285-295); Sodium 140 mmol/L (136-145); Total Bilirubin 0.6 mg/dL (0.15-1.2); Total Protein 7.1 g/dL (6.6-8.7)
[2024-08-03 09:56] LABS: Aspartate Amino Transferase 26 U/L (0-40); Lactate Dehydrogenase 222 U/L (135-225)
== END 2024-08-03 08:29 | disposition home or self-care (01) ==
PROVIDERS: PCP Registered Nurse; Visit Provider Internal Medicine
DX: Z79.01 Long term (current) use of anticoagulants (principal); Z95.811 Presence of heart assist device
CPT/HCPCS: 36415; 80053; 82550; 83615; 85025; 85610

== ENCOUNTER 2024-08-17 09:40 | Outpatient (CLI) | payer MEDICARE, MEDICAID, SELFPAY ==
[2024-08-17 10:24] LABS: Hematocrit 41.4 % (37-53); Hemoglobin 13.30 g/dL (11.27-16.99); Mean Corpuscular HGB Conc 32.1 g/dL (30-55); Mean Corpuscular Hemoglobin 29.4 pg (27-33); Mean Corpuscular Volume 91.4 fl (82-101); Nucleated Red Blood Cells % 0 %; Platelet Count 150 10^3/cmm (157-399); Red Blood Count 4.53 10^6/uL (3.85-5.65); White Blood Count 26.50 10^3/uL (3.29-11.43)
[2024-08-17 10:43] LABS: INR 2.48 (0.8-1.2); Prothrombin Time 28.30 SECONDS (12.1-14.9)
[2024-08-17 10:57] LABS: Alanine Aminotransferase 50 U/L (0-41); Albumin Level 4.2 g/dL (3.5-5.2); Alkaline Phosphatase 106 U/L (40-130); Aspartate Amino Transferase 44 U/L (0-40); Blood Urea Nitrogen 24 mg/dL (8-23); Calcium 9.4 mg/dL (8.5-10.5); Carbon Dioxide 23 mmol/L (22-29); Chloride 105 mmol/L (98-107); Globulin 2.9 g/dL (1.3-4.6); Glucose 131 mg/dL (65-115); Osmolality Calculated 298 mOsm/kg (285-295); Sodium 141 mmol/L (136-145); Total Protein 7.1 g/dL (6.6-8.7)
[2024-08-17 10:58] LABS: Slide Review Slide Review Perform
[2024-08-17 10:59] LABS: Anion Gap 17.5 (5-19); Potassium 4.5 mmol/L (3.5-5.1)
== END 2024-08-17 09:41 | disposition home or self-care (01) ==
PROVIDERS: PCP Registered Nurse; Visit Provider Internal Medicine
DX: Z79.01 Long term (current) use of anticoagulants (principal)
CPT/HCPCS: 36415; 80053; 82550; 83615; 85025; 85610

== ENCOUNTER 2024-09-10 15:05 | Emergency (ER) | payer MEDICARE, SELFPAY ==
[2024-09-10 15:08] VITALS: BP 112/88; PULSE 42; RESP 18; TEMP 36.4; BMI 33.6
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
--- OUTSIDE RECORDS SUMMARY | 2024-09-10 15:11 | XMS_ITS | Encounter Summary ---
Author Organization [facility] Healthcare Address [address] [place] [address] Care Team Providers Care Dope Worker Name Role Phone Martine Wilson NP Primary Care Provider [phone] Janae Serna RN Unavailable [phone] Derick Su DO Unavailable [phone] Encounter Details Date Type Department Care Team (Late st Contact Info) Description 09/05/2024 Telephone [facility] Transplant Heart [address] [facility] [address] Mailstop [phone] [place] [address] Maury Hunter Social History Tobacco Use Types Packs/Day Years Used Date Smoking Tobacco: Former Cigarettes Q uit: 2019 Social Connection and Isolat ion Panel [NHANES] Answer Date Recorded In a typical week, how many times do you talk on the phone with family, friends, or neighbors? More than three times a week 11/18/2022 How often do you get togethe r with friends or relatives? More than three times a week 11/18/2022 How often do you attend chur ch or pentecostalism services? Never 11/18/2022 Do you belong to any clubs o r organizations such as hoahaoism groups, unions, fraternal or athletic groups, or school groups? No 11/18/2022 How often do you attend meet ings of the clubs or organizations you belong to? Never 11/18/2022 Are you , , di vorced, , never , or living with a partner? Never 11/18/2022 AUDIT-C Answer Date Recorded Q1: How often do you have a drink containing alcohol? Never 01/22/2023 Q2: How many drinks containi ng alcohol do you have on a typical day when you are drinking? Patient does not drink Q3: How often do you have si x or more drinks on one occasion? Never 01/22/2023 Overall Financial Resource Strain (CARDIA) Answe r Date Recorded How hard is it for you to pa y for the very basics like food, housing, medical care, and heating? Not very hard 11/18/2022 Hunger Vital Sign Answer Date Recorded Within the past 12 months, y ou worried that your food would run out before you got the money to buy more. Never true 11/19/19 23 Within the past 12 months, t he food you bought just didn't last and you didn't have money to get more. Never true 11/18/2022 PRAPARE - Transportation Answer Date Re corded In the past 12 months, has l ack of transportation kept you from medical appointments or from getting medications? No 04/2022 In the past 12 months, has l ack of transportation kept you from meetings, work, or from getting things needed for daily living? No 11/18/2022 Housing Stability Vital Sign Answer Jefry e Recorded In the last 12 months, was t here a time when you were not able to pay the mortgage or rent on time? No 11/18/2022 In the last 12 months, how many places have you lived? 1 11/18/2022 In the last 12 months, was t here a time when you did not have a steady place to sleep or slept in a retirement (including now)? No 11/18/2022 Personal Safety Answer Date Recorded Have you ever been in or are you currently in a harmful physical or emotional relationship or is someone making you feel afraid or unsafe? Denies 11/13/2022 Sex and Gender Information Value Date Recorded Sex Assigned at Not on file Legal Sex Male 2:51 PM CDT Gender Identity Not on file Sexual Orientation Not on file documented as of this encounter Miscellaneous Notes * Telephone Encounter - Janae Serna RN - 09/05/2024 2:07 PM CDT Returned call to pt who is requesting meds go to [facility] mail delivery-potassium/trazodone/pantoprazole/coumadin/imdur/statin. Will escribe as requested. * Telephone Encounter - Maury Hunter - 09/05/2024 12:47 PM CDT Received call from the patient needing to speak with nurse coordinator regarding: Requesting a call back from HENRRY Serna to go over prescription issues. He did not elaborate further, sorry! Patient needs a return call from the nurse coordinator. Please call him back at [phone] to discuss documented in this encounter Plan of Treatment Not on file documented as of this encounter Visit Diagnoses Not on filedocumented in this encounter Care Teams Dope Worker Relationship Specialty Start Date End Date Martine Wilson NP [address] [place] [address] PCP - General Family Practice 11/14/22 Janae Serna, RN VAD Coordinator 02/25/24 Derick Su DO [address] [place] [phone] Family Medicine 07/19/24 documented as of this encounter
--- OUTSIDE RECORDS SUMMARY | 2024-09-10 15:11 | XMS_ITS | Encounter Summary ---
Author Organization [facility] Address [address] [place] [address] Phone Care Team Providers Care Overseamer Name Role Phone Martine Wilson NP Primary Care Provider [phone] Janae Serna RN Unavailable [phone] Derick Su DO Unavailable [phone] Encounter Details Date Type Department Care Team (Late st Contact Info) Description 08/26/2024 Telephone [facility] Infectious Diseases [address] [place] [address] [address] [place] [address] Lisa Goodwin RMA Social History Tobacco Use Types Packs/Day Years [...] often do you attend chur ch or anabaptism services? Never 11/18/2022 Do you belong to any clubs o r organizations such as sabianism groups, unions, fraternal or athletic groups, or [...] place to sleep or slept in a long-term (including now)? No 11/18/2022 Personal Safety Answer [...] encounter Miscellaneous Notes * Telephone Encounter - Fanny Fortune RN - 08/26/2024 12:15 PM CDT Refill sent to [facility]. * Telephone Encounter - Lisa Goodwin REG - 08/26/2024 9:57 AM CDT [facility] called re refills for 6 Rx. Rx were faxed 7 days ago. Please call [phone]; documented in this encounter Plan of Treatment Not on file documented as of this encounter Visit Diagnoses Not on filedocumented in this encounter Care Teams Overseamer Relationship Specialty Start Date End Date Martine Wilson NP [address] [place] [address] PCP - General Family Practice 11/14/22 Janae Serna RN VAD Coordinator 02/25/24 Derick Su DO [address] [place] [phone] Family Medicine 07/19/24 documented as of this encounter
--- OUTSIDE RECORDS SUMMARY | 2024-09-10 15:11 | XMS_ITS | Encounter Summary ---
Author Organization [facility] Address [address] [place] [address] Care Team Providers Care Seasonal Driver Name Role Phone Derick Su DO Primary Care Provider [phone] Encounter Details Date Type Department Care Team (Late st Contact Info) Description 08/31/2024 External Device Data [place] ABSTRACTION Provider, Abstract NO ADDRESS ON FILE Social History Tobacco Use Types Packs/Day Years Used Date Smoking Tobacco: Former Cigarettes 2 47 1 97 - 2017 Passive Smoke Exposure: Current Smokeless Tobacco: Never Alcohol Use Standard Drinks/Week Comments Not Currently 0 (1 standard drink = 0.6 oz pur e alcohol) Sex and Gender Information Value Date Recorded Sex Assigned at Not on file 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 Author Heart Failure Goal Care Plan Heart Failure Problem No Nancie Mesa LPN Heart Failure Goal Care Plan Heart Failure Problem No Nancie Mesa LPN Heart Failure Goal Care Plan Heart Failure Problem No Nancie Mesa LPN Heart Failure Goal Care Plan Heart Failure Problem No Jena Juarez LPN Heart Failure Goal Care Plan Heart Failure Problem No Larry, Jena, HOSEMAN Heart Failure Goal Care Plan Heart Failure Problem No Larry, Jena, HOSEMAN Heart Failure Goal Care Plan Heart Failure Problem No Larry, Jena, HOSEMAN Heart Failure Goal Care Plan Heart Failure Problem No Larry, Jena, HOSEMAN Heart Failure Goal Care Plan Heart Failure Problem No Larry, Jena, HOSEMAN Heart Failure Goal Care Plan Heart Failure Problem No Larry, Jena, HOSEMAN Heart Failure Goal Care Plan Heart Failure Problem No Larry, Jena, HOSEMAN Heart Failure Goal Care Plan Heart Failure Problem No Larry, Jena, HOSEMAN Heart Failure Goal Care Plan Heart Failure Problem No Larry, Jena, HOSEMAN Heart Failure Goal Care Plan Heart Failure Problem No Larry, Jena, HOSEMAN Heart Failure Goal Care Plan Heart Failure Problem No Larry, Jena, HOSEMAN Heart Failure Goal Care Plan Heart Failure Problem No Larry, Jena, HOSEMAN Heart Failure Goal Care Plan Heart Failure Problem No Ritu Roldan RN Heart Failure Goal Care Plan Heart Failure Problem No Larry, Jena, HOSEMAN Heart Failure Goal Care Plan Heart Failure Problem No Mesa, Nancie, HOSEMAN Heart Failure Goal Care Plan Heart Failure Problem No Mesa, Nancie, HOSEMAN Heart Failure Goal Care Plan Heart Failure Problem No Mesa, Nancie, HOSEMAN Heart Failure Goal Care Plan Heart Failure Problem No Mesa, Nancie, HOSEMAN documented as of this encounter Visit Diagnoses Not on filedocumented in this encounter Additional Health Concerns Active Problems Noted Date [...] Failure Problem 02/24/2024 Heart Failure Problem 02/24/2024 documented as of this encounter Care Teams Seasonal Driver Relationship Specialty Start Date End Date Derick Su DO [address] [place] [address] PCP - General Family Practice 02/17/23 documented as of this encounter
--- OUTSIDE RECORDS SUMMARY | 2024-09-10 15:11 | XMS_ITS | Encounter Summary ---
Author Organization [facility] Address [address] [place] [address] Phone Care Team Providers Care Batch Freezer Name Role Phone Martine Wilson NP Primary Care Provider [phone] Janae Serna RN Unavailable [phone] Derick Su DO Unavailable [phone] Encounter Details Date Type Department Care Team (Late st Contact Info) Description 07/07/2024 Results Follow-Up [facility] Cardiology [address] [facility] [address] [place] [address] [place] [address] Maria Alejandra Winter, JUAN [address] [facility] [address] [place] [address] ECG 12 lead, TSH Social History Tobacco Use Types Packs/Day Years [...] often do you attend chur ch or latter-day services? Never 11/18/2022 Do you belong to any clubs o r organizations such as moravian groups, unions, fraternal or athletic groups, or [...] money to buy more. Never true 11/19/19 Within the past 12 months, t he [...] place to sleep or slept in a residential (including now)? No 11/18/2022 Personal Safety Answer [...] as of this encounter Plan of Treatment Not on file documented as of this encounter Visit Diagnoses Not on filedocumented in this encounter Care Teams Batch Freezer Relationship Specialty Start Date End Date Martine Wilson NP [address] [place] [address] PCP - General Family Practice 11/14/22 Janae Serna, RN VAD Coordinator 02/25/24 Derick Su DO [address] [place] [phone] Family Medicine 07/19/24 documented as of this encounter
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
--- OUTSIDE RECORDS SUMMARY | 2024-09-10 15:11 | XMS_ITS | Referral Summary ---
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 K/cumm EXTERNAL LAB SCRIBED Hemoglobin 13.3 11.2 - 17.0 g/dL EXTERNAL LAB SCRIBED Hematocrit 41.4 37.0 - 53.0 % EXTERNAL LAB SCRIBED Platelets 150(A) 157 - 399 K/cumm EXTERNAL LAB SCRIBED RBC EXTERNAL LAB Comment:NA Blood 2024 10:0 1 AM CDT us Marlo Herbert MD PhD LAB BLOOD ORDERABL ES Final Result EXTERNAL LAB * (ABNORMAL) Protime-INR (2024 10:01 AM CDT) SCRIBED PT 28.30(A) 12.1 - 14.9 sec EXTERNAL LAB SCRIBED INR 2.48 2.00 - 3.00 sec EXTERNAL LAB Blood 2024 10:0 1 AM CDT us Marlo Herbert MD PhD LAB BLOOD ORDERABL ES Final Result EXTERNAL LAB * Lactate dehydrogenase (LD) (2024 10:01 AM CDT) SCRIBED LDH 204 135 - 225 IUnit/mL EXTERNAL LAB Blood 2024 10:0 1 AM CDT us Marlo Herbert MD PhD LAB BLOOD ORDERABL ES Final Result Performing Organization Address [facility] Co de Phone Number EXTERNAL LAB * Creatine kinase (CK), total (2024 10:01 AM CDT) Pathologist [facility] SCRIBED Creatine Kinase, Total, Serum 66 39 - 308 Blood 2024 10:0 1 AM CDT us Marlo Herbert MD PhD LAB BLOOD ORDERABL ES Final Result * (ABNORMAL) Comprehensive metabolic panel (2024 10:01 AM CDT) SCRIBED Sodium 141 136 - 145 mmol/L EXTERNAL LAB SCRIBED Potassium 4.5 3.5 - 5.1 mmol/L EXTERNAL LAB SCRIBED Chloride 105 98 - 107 mmol/L EXTERNAL LAB SCRIBED Carbon Dioxide 23 22 - 29 mmol/L EXTERNAL LAB SCRIBED Anion Gap 17.5 5 - 19 mmol/L EXTERNAL LAB SCRIBED Urea Nitrogen (BUN) 24(A) 8 - 23 mg/dl EXTERNAL LAB SCRIBED Creatinine 1.5(A) 0.7 - 1.2 mg/dl EXTERNAL LAB SCRIBED Glucose 131(A) 65 - 115 mg/dl EXTERNAL LAB SCRIBED Calcium 9.4 8.5 - 10.5 mg/dl EXTERNAL LAB SCRIBED Bilirubin 0.7 0.15 - 1.2 mg/dl EXTERNAL LAB SCRIBED Plasma Protein 7.1 6.6 - 8.7 g/dl EXTERNAL LAB SCRIBED Albumin 4.2 3.5 - 5.2 g/dl EXTERNAL LAB SCRIBED Alkaline Phosphatase 106 40 - 130 Units/L EXTERNAL LAB SCRIBED Alanine Transaminase (ALT) 50(A) 0 - 41 Units/L EXTERNAL LAB SCRIBED Aspartate Transaminase (AST) 44(A) 0 - 41 Units/L EXTERNAL LAB SCRIBED eGFR in 47.0(A) 90 - 130 EXTERNAL LAB SCRIBED eGFR in NonAfrican [place]er 47.0(A) 90 - 130 EXTERNAL LAB OSMO CALC 298(A) 285 - 295 EXTERNAL LAB Globulin 2.9 1.3 - 4.6 g/dL (calc) EXTERNAL LAB Blood 2024 10:0 1 AM CDT Marlo Herbert MD PhD LAB BLOOD ORDERABL ES Final Result EXTERNAL LAB * (ABNORMAL) Protime-INR (2024) INR 2.48(A) 0.90 - 1.10 Blood Historical Provider LAB BLOOD ORDERABLES Katie l Result * (ABNORMAL) CBC with auto differential (08/03/2024) SCRIBED WBC 25.36(A) 3.29 - 11.43 k/cumm [facility] SCRIBED Hemoglobin 12.80 11.27 - 16.99 g/dL [facility] SCRIBED Hematocrit 41.2 37 - 53 % [facility] SCRIB[facility] Platelets 163 157 - 399 k/cumm [facility] Blood 08/03/2024 Stas Marin MD LAB BLOOD ORDERABLES Fi nal Result [facility] [address] [place] [address], [facility] [[email or web address]] [phone] * (ABNORMAL) Protime-INR (08/03/2024) INR 2.25(A) 0.90 - 1.10 Blood Ekta Narayanan MD LAB BLOOD ORDERABLES Katie l Result * (ABNORMAL) Protime-INR (08/03/2024) SCRIBED PT 26.20(A) 12.1 - 14.9 sec [facility] SCRIBED INR 2.25(A) 0.8 - 1.2 sec [facility] Blood 08/03/2024 Stas Marin MD LAB BLOOD ORDERABLES Fi nal Result Performing Organization Address [facility] Co de Phone Number [facility] [address] [phone] * Lactate dehydrogenase (LD) (08/03/2024) SCRIBED LDH 222 135 - 225 IUnit/mL [facility] Blood 08/03/2024 Stas Marin MD LAB BLOOD ORDERABLES Fi nal Result Performing Organization Address [facility] Co de Phone Number [facility] [address] [place] [address], [facility] [[email or web address]] [phone] * Creatine kinase (CK), total (08/03/2024) SCRIBED Creatine Kinase, Total, Serum 74 39 - 308 [facility] Blood 08/03/2024 Stas Marin MD LAB BLOOD ORDERABLES Fi nal Result Performing Organization Address [facility] Co de Phone Number [facility] [address] [phone] * (ABNORMAL) Comprehensive metabolic panel (08/03/2024) Pathologist [facility] SCRIBED Sodium 140 136 - 145 mmol/L [facility] Potassium 5.0 3.5 - 5.1 mmol/L [facility] S[facility] Chloride 107 98 - 107 mmol/L [facility] SCR[facility] Carbon Dioxide 22 22 - 29 mmol/L [facility] SCR[facility] Anion Gap 16.0 5 - 19 mmol/L [facility] SCR[facility] Urea Nitrogen (BUN) 23 8 - 23 mg/dl [facility] SCRIBED Creatinine 1.5(A) 0.7 - 1.2 mg/dl [facility] SCR[facility] Glucose 133(A) 65 - 115 mg/dl [facility] SCRIBED Calcium 9.5 8.5 - 10.5 mg/dl [facility] SCRIBED Bilirubin 0.6 0.15 - 1.2 mg/dl [facility] SCRIBED Plasma Protein 7.1 6.6 - 8.7 g/dl [facility] SCRIBED Albumin 4.0 3.5 - 5.2 g/dl [facility] SCRIBED Alkaline Phosphatase 103 40 - 130 Units/L [facility] SCRIBED Alanine Transaminase (ALT) 26 0 - 41 Units/L [facility] SCRIBED Aspartate Transaminase (AST) 26 0 - 40 Units/L [facility] SCRIBED eGFR in NonAfrican [place] 47.1 n/a [facility] Osmolality 296(A) 285 - 295 mOsmol/kg [facility] Globulin 3.1 1.3 - 4.6 g/dL (calc) [facility] Blood 08/03/2024 us Stas Marin MD LAB BLOOD ORDERABLES Ed ited Result - Final [facility] [address] [place], [place] [id number] [place] [address] * (ABNORMAL) CBC with auto differential (07/20/2024 9:30 AM CDT) Pathologist [facility] SCRIBED WBC 26.19(A) 3.29 - 11.43 k/cumm [facility] NO LAB FOUND SCRIBED Hemoglobin 12.60 11.27 - 16.99 g/dL [facility] NO LAB FOUND SCRIBED Hematocrit 39.3 37 - 53 % [facility] NO LAB FOUND SCRIBED Platelets 150(A) 157 - 399 k/cumm [facility] NO LAB FOUND Blood 07/20/2024 9:30 AM CDT us Marlo Herbert MD PhD LAB BLOOD ORDERABL ES Final Result Performing Organization Address [facility] Co de Phone Number [facility] NO LAB FOUND * (ABNORMAL) Protime-INR (07/20/2024 9:30 AM CDT) SCRIBED PT 22.00(A) 12.1 - 14.9 sec [facility] NO LAB FOUND SCRIBED INR 1.80(A) 2.00 - 3.00 sec [facility] NO LAB FOUND Blood 07/20/2024 9:30 AM CDT us Marlo Herbert MD PhD LAB BLOOD ORDERABL ES Final Result Performing Organization Address [facility] de Phone Number TXP NO LAB FOUND * Lactate dehydrogenase (LD) (07/20/2024 9:30 AM CDT) SCRIBED LDH 184 135 - 225 IUnit/mL [facility] NO LAB FOUND Blood 07/20/2024 9:30 AM CDT us Marlo Herbert MD PhD LAB BLOOD ORDERABL ES Final Result Performing Organization Address [facility] de Phone Number TXP NO LAB FOUND * Creatine kinase (CK), total (07/20/2024 9:30 AM CDT) SCRIBED Creatine Kinase, Total, Serum 64 39 - 308 [facility] NO LAB FOUND Blood 07/20/2024 9:30 AM CDT us Marlo Herbert MD PhD LAB BLOOD ORDERABL ES Final Result Performing Organization Address [facility]/ZIP Co de Phone Number TXP NO LAB FOUND * (ABNORMAL) Comprehensive metabolic panel (07/20/2024 9:30 AM CDT) SCRIBED Sodium 138 136 - 145 mmol/L [facility] NO LAB FOUND SCRIBED Potassium 4.4 3.5 - 5.1 mmol/L [facility] NO LAB FOUND SCRIBED Chloride 103 98 - 107 mmol/L [facility] NO LAB FOUND SCRIBED Carbon Dioxide 23 22 - 29 mmol/L [facility] NO LAB FOUND SCRIBED Anion Gap 16.4 5 - 19 mmol/L [facility] NO LAB FOUND SCRIBED Urea Nitrogen (BUN) 28(A) 8 - 23 mg/dl [facility] NO LAB FOUND SCRIBED Creatinine 1.7(A) 0.7 - 1.2 mg/dl [facility] NO LAB FOUND SCRIBED Glucose 144(A) 65 - 115 mg/dl [facility] NO LAB FOUND SCRIBED Calcium 9.5 8.5 - 10.5 mg/dl [facility] NO LAB FOUND SCRIBED Bilirubin 0.8 0.15 - 1.2 mg/dl [facility] NO LAB FOUND SCRIBED Plasma Protein 7.2 6.6 - 8.7 g/dl [facility] NO LAB FOUND SCRIBED Albumin 4.1 3.5 - 5.2 g/dl [facility] NO LAB FOUND SCRIBED Alkaline Phosphatase 94 40 - 130 Units/L [facility] NO LAB FOUND SCRIBED Alanine Transaminase (ALT) 40 0 - 41 Units/L [facility] NO LAB FOUND SCRIBED Aspartate Transaminase (AST) 29 0 - 40 Units/L TX[facility] NO LAB FOUND SCRIBED eGFR in NonAfrican [place] 40.8(A) 90 - 130 TXP NO LAB FOUND Blood 07/20/2024 9:30 AM CDT us Marlo Herbert MD PhD LAB BLOOD ORDERABL ES Final Result Performing Organization Address [facility]/ZIP Co de Phone Number [place] NO LAB FOUND * (ABNORMAL) Protime-INR (07/20/2024) INR 1.80(A) 0.90 - 1.10 Blood us Historical Provider LAB BLOOD ORDERABLES Katie l Result * (ABNORMAL) eGFR (07/07/2024 10:50 AM CDT) [facility] eGFR 34(L) >=60 mL/min/1. 73 m2 Comment: Interpretive Data Reference Interval Normal >/= 90 mL/min/1.73m2 Mildly decreased* 60 - 89 mL/min/1.73m2 Mildly to moderately decreased 45 - 59 mL/min/1.73m2 Moderately to severely decreased 30 - 44 mL/min/1.73m2 Severely decreased 15 - 29 mL/min/1.73m2 Kidney Failure < 15 mL/min/1.73m2 *Relative to young adult level Estimated glomerular filtration rate is determined by the 2020 CKD-EPI equation recommended by the National Kidney Foundation (A Unifying Approach to GFR Estimation: Recommendations of the NKF-ASK Task Force on Reassessing the Inclusion of Race in Diagnosing Kidney Disease, JASN 2020). The CKD-EPI equation should not be used for patients with unstable renal function and has not been validated in children and those over 70. Current interpretive data was last reviewed 2020. Blood 07/07/2024 10:5 0 AM CDT 07/07/2024 11:23 AM CDT Marlo Herbert MD PhD LAB BLOOD ORDERABL ES Final Result [facility] [address] [facility]. [place] [address] * (ABNORMAL) Differential, auto (07/07/2024 10:50 AM CDT) Pathologist [facility] Neutrophil abs 6.37 1.50 - 6.50 K/cumm Imm gran abs 0.08 0.00 - 0.10 K/cumm [facility] Lymphocyte abs 22.59(H) 0.80 - 3.30 K/cumm [facility] Monocyte abs 0.57 0.20 - 0.80 K/cumm [facility] Eosinophil abs 0.17 0.00 - 0.50 K/cumm [facility] Basophil abs 0.08 0.00 - 0.10 K/cumm [facility] Neutrophil pct 21.2 % [facility] Comment: Interpretive Data Percent cell count reference ranges are not reported, since discordance with absolute values may lead to misinterpretation of CBC data. Current Interpretive Data was last revised on 2017. Imm gran pct 0.3 % [facility] Comment: Interpretive Data Percent cell count reference ranges are not reported, since discordance with absolute values may lead to misinterpretation of CBC data. Current Interpretive Data was last revised on 2017. Lymphocyte pct 75.7 % [facility] Comment: Interpretive Data Percent cell count reference ranges are not reported, since discordance with absolute values may lead to misinterpretation of CBC data. Current Interpretive Data was last revised on 2017. Monocyte pct 1.9 % [facility] Comment: Interpretive Data Percent cell count reference ranges are not reported, since discordance with absolute values may lead to misinterpretation of CBC data. Current Interpretive Data was last revised on 2017. Eosinophil pct 0.6 % [facility] Comment: Interpretive Data Percent cell count reference ranges are not reported, since discordance with absolute values may lead to misinterpretation of CBC data. Current Interpretive Data was last revised on 2017. Basophil pct 0.3 % [facility] Comment: Interpretive Data Percent cell count reference ranges are not reported, since discordance with absolute values may lead to misinterpretation of CBC data. Current Interpretive Data was last revised on 2017. Blood 07/07/2024 10:5 0 AM CDT 07/07/2024 11:22 AM CDT us Marlo Herbert MD PhD LAB BLOOD ORDERABL ES Final Result [facility] [address] [facility] [address] * (ABNORMAL) CBC with auto differential (07/07/2024 10:50 AM CDT) WBC 29.86(H) 3.80 - 9.90 K/cumm Hgb 13.2 13.0 - 17.5 g/dL [facility] Hct 42.1 38.9 - 50.3 % [facility] Plt 156 150 - 400 K/cumm [facility] Comment:No clot detected in sample. MPV 13.2(H) 9.1 - 12.3 fL [facility] RBC 4.54 4.30 - 5.80 M/cumm [facility] MCV 92.7 81.3 - 96.4 fL [facility] MCH 29.1 27.1 - 33.3 pg [facility] MCHC 31.4(L) 32.3 - 35.7 g/dL [facility] RDW CV 15.2(H) 11.1 - 14.9 % [facility] RDW SD 51.6(H) 35.7 - 48.1 fL [facility] NRBC abs 0.00 0.00 - 0.01 K/cumm [facility] Morphologic Screen Results confirmed by manual morphology review. [facility] Blood 07/07/2024 10:5 0 AM CDT 07/07/2024 11:22 AM CDT us Marlo Herbert MD PhD LAB BLOOD ORDERABL ES Final Result [facility] [address] [facility] Department of [place], [place] [id number] * (ABNORMAL) Protime-INR (07/07/2024 10:50 AM CDT) Pathologist [facility] PT 27.7(H) 9.7 - 13.0 sec INR 2.52(H) 0.90 - 1.20 [facility] Comment: Interpretive data Oral anticoagulant therapeutic ranges: Venous thromboembolism prophylaxis or treatment: 2.0-3.0 CARDIOLOGY Standard range: 2.0-3.0 High-intensity range: 2.5-3.5 Refer to indication-specific guidelines for appropriate target ranges for prosthetic heart valve replacement. Current interpretive data was last revised on 2019. Blood 07/07/2024 10:5 0 AM CDT 07/07/2024 11:22 AM CDT Marlo Herbert MD PhD LAB BLOOD ORDERABL ES Final Result Performing Organization Address [facility] Co de Phone Number [facility] [address] [address] [facility] [place] [address] * TSH (07/07/2024 10:50 AM CDT) Thyroid Stimulating Hormone 2.43 0.30 - 4.20 mcIUnit/mL Blood 07/07/2024 10:5 0 AM CDT 07/07/2024 11:22 AM CDT us Maria Alejandra Winter BENCH ASSEMBLY INSPECTOR LAB BLOOD ORDERABLES Katie l Result Performing Organization Address [facility] de Phone Number [facility] [address] [facility] [place] [address] * Lactate dehydrogenase (LD) (07/07/2024 10:50 AM CDT) Lactate dehydrogenase (LDH) 222 100 - 250 Units/L Comment:Hemolyzed; result ma y be falsely elevated. Blood 07/07/2024 10:5 0 AM CDT 07/07/2024 11:22 AM CDT us Marlo Herbert MD PhD LAB BLOOD ORDERABL ES Final Result Performing Organization Address [facility] Co de Phone Number [facility] [address] [facility] [employer] [place], [place] [id number] * (ABNORMAL) Comprehensive metabolic panel (07/07/2024 10:50 AM CDT) Sodium 140 135 - 145 mmol/L Potassium, pl 4.6 3.3 - 4.9 mmol/L [facility] Chloride 103 97 - 110 mmol/L [facility] CO2 21(L) 22 - 32 mmol/L [facility] Anion gap 16(H) 2 - 15 mmol/L [facility] BUN 31(H) 6 - 25 mg/dL [facility] Creatinine 2.10(H) 0.80 - 1.30 mg/dL [facility] Glucose 141 70 - 199 mg/dL [facility] Comment: Interpretive Data Fasting glucose >/= 126 mg/dl is diagnostic for diabetes. Fasting is defined as no caloric intake for at least 8 hours. Fasting glucose between 100 mg/dl to 125 mg/dl is diagnostic of prediabetes. In a patient with classic symptoms of hyperglycemia or hyperglycemic crisis, a random glucose >/= 200 mg/dl is diagnostic for diabetes. In the absence of unequivocal hyperglycemia, results should be confirmed by repeat testing. The classification and Diagnosis of Diabetes Diabetes Care 2021; 46: S19-S40. Current interpretive data was last revised 2022. Calcium 10.0 8.5 - 10.3 mg/dL [facility] Bilirubin, total 0.6 0.1 - 1.2 mg/dL [facility] Protein, pl 7.1 6.5 - 8.5 g/dL [facility] Albumin 4.5 3.5 - 5.0 g/dL [facility] Alk phos 106 40 - 130 Units/L [facility] ALT 34 7 - 55 Units/L [facility] AST 34 10 - 50 Units/L [facility] Comment:Hemolyzed; result ma y be falsely elevated. Blood 07/07/2024 10:5 0 AM CDT 07/07/2024 11:22 AM CDT us Marlo Herbert MD PhD LAB BLOOD ORDERABL ES Final Result [facility] [address] [facility] [address] * ECG 12 lead (07/07/2024 9:11 AM CDT) Maria Alejandra Winter BENCH ASSEMBLY INSPECTOR ECG ORDERABLES Edited Re sult - Final * DEVICE CHECK - IN OFFICE (07/07/2024 8:19 AM CDT) Anatomical Region Laterality Modality Other 07/07/2024 2:00 AM CDT Narrative 07/19/2024 2:52 PM CDT Interpretation Summary: Battery and Leads (BL) Normal parameters noted on battery and lead(s) --- battery longevity estimate: 12.5yrs Presenting Rhythm (HI) Atrial Sensing-Ventricular Sensing (-VS) Atrial Sensing-Ventricular Pacing (-LOG DECKMAN) Arrhythmic events (AE) No new arrhythmic events in monitoring period Anticoagulation (AC) Patient prescribed Warfarin (Coumadin) Patient on anticoagulant therapy Procedure Note Sepideh Concepcion MD - 07/19/2024 Interpretation Summary: Battery and Leads (BL) Normal parameters noted on battery and lead(s) --- battery longevityestimate: 12.5yrs Presenting Rhythm (HI) Atrial Sensing-Ventricular Sensing (-VS) Atrial Sensing-Ventricular Pacing (-LOG DECKMAN) Arrhythmic events (AE) No new arrhythmic events in monitoring period Anticoagulation (AC) Patient prescribed Warfarin (Coumadin) Patient on anticoagulant therapy Result [facility] Gordon Mcdaniel MD CV CARDIAC SERVICES PROCEDURES Final Result * (ABNORMAL) Protime-INR (06/30/2024) Pathologist [facility] INR 2.28(A) 0.90 - 1.10 Blood Historical Provider LAB BLOOD ORDERABLES Katie l Result * CK (06/29/2024 9:27 AM CDT) Pathologist [facility] CK 82 39 - 308 EXTERNAL LAB 06/29/2024 9:27 AM CDT Stas Marin MD LAB BLOOD ORDERABLES Fi nal Result Performing Organization Address [facility] de Phone Number EXTERNAL LAB * (ABNORMAL) CBC with auto differential (06/29/2024 9:27 AM CDT) SCRIBED WBC 27.98(A) 3.29 - 11.43 k/cumm EXTERNAL LAB SCRIBED Hemoglobin 12.90 11.27 - 16.99 g/dL EXTERNAL LAB SCRIBED Hematocrit 40.1 37 - 53 % EXTERNAL LAB SCRIBED Platelets 150(A) 157 - 399 k/cumm EXTERNAL LAB Blood 06/29/2024 9:27 AM CDT us Stas Marin MD LAB BLOOD ORDERABLES Fi nal Result Performing Organization Address [facility] de Phone Number EXTERNAL LAB * (ABNORMAL) Protime-INR (06/29/2024 9:27 AM CDT) Pathologist [facility] SCRIBED PT 26.40(A) 12.1 - 14.9 sec EXTERNAL LAB SCRIBED INR 2.28 2.00 - 3.00 sec EXTERNAL LAB Blood 06/29/2024 9:27 AM CDT us Stas Marin MD LAB BLOOD ORDERABLES Ed ited Result - Final Performing Organization Address [facility] de Phone Number EXTERNAL LAB * Lactate dehydrogenase (LD) (06/29/2024 9:27 AM CDT) Pathologist [facility] SCRIBED LDH 199 135 - 225 IUnit/mL EXTERNAL LAB Blood 06/29/2024 9:27 AM CDT us Stas Marin MD LAB BLOOD ORDERABLES Fi nal Result Performing Organization Address [facility] Co de Phone Number EXTERNAL LAB * (ABNORMAL) Comprehensive metabolic panel (06/29/2024 9:27 AM CDT) SCRIBED Sodium 139 136 - 145 mmol/L EXTERNAL LAB SCRIBED Potassium 4.2 3.5 - 5.1 mmol/L EXTERNAL LAB SCRIBED Chloride 104 98 - 107 mmol/L EXTERNAL LAB SCRIBED Carbon Dioxide 21(A) 22 - 29 mmol/L EXTERNAL LAB SCRIBED Anion Gap 18.2 5 - 19 mmol/L EXTERNAL LAB SCRIBED Urea Nitrogen (BUN) 37(A) 8 - 23 mg/dl EXTERNAL LAB SCRIBED Creatinine 2.0(A) 0.7 - 1.2 mg/dl EXTERNAL LAB SCRIBED Glucose 191(A) 65 - 115 mg/dl EXTERNAL LAB SCRIBED Calcium 302(A) 285 - 295 mg/dl EXTERNAL LAB SCRIBED Bilirubin 0.7 0.15 - 1.2 mg/dl EXTERNAL LAB SCRIBED Plasma Protein 7.1 6.6 - 8.7 g/dl EXTERNAL LAB SCRIBED Albumin 4.0 3.5 - 5.2 g/dl EXTERNAL LAB SCRIBED Alkaline Phosphatase 113 40 - 130 Units/L EXTERNAL LAB SCRIBED Alanine Transaminase (ALT) 41 0 - 41 Units/L EXTERNAL LAB SCRIBED Aspartate Transaminase (AST) 39 0 - 40 Units/L EXTERNAL LAB SCRIBED eGFR in 33.8(A) 90 - 130 EXTERNAL LAB SCRIBED eGFR in NonAfrican [place] 33.8(A) 90 - 130 EXTERNAL LAB Globulin 3.1 1.3 - 4.6 g/dL (calc) EXTERNAL LAB Blood 06/29/2024 9:27 AM CDT us Stas Marin MD LAB BLOOD ORDERABLES Fi nal Result EXTERNAL LAB * DEVICE CHECK - REMOTE (06/15/2024 2:51 AM CDT) Anatomical Region Laterality Modality Other 06/15/2024 2:51 AM CDT Narrative 06/23/2024 1:06 PM CDT Interpretation Summary: Battery and Leads (BL) Normal parameters noted on battery and lead(s) --- 12.5 years remaining (this is an estimate based on prior usage) Presenting Rhythm (HI) Atrial Sensing-Ventricular Pacing (-LOG DECKMAN) --- rate 71 Arrhythmic events (AE) No new arrhythmic events in monitoring period Anticoagulation (AC) Patient prescribed Warfarin (Coumadin) Patient on anticoagulant therapy Transmission Information (TI) Device Summary Report Procedure Note Luís Coronado MD PhD - 06/23/2024 Interpretation Summary: Battery and Leads (BL) Normal parameters noted on battery and lead(s) --- 12.5 years remaining(this is an estimate based on prior usage) Presenting Rhythm (HI) Atrial Sensing-Ventricular Pacing (-LOG DECKMAN) --- rate 71 Arrhythmic events (AE) No new arrhythmic events in monitoring period Anticoagulation (AC) Patient prescribed Warfarin (Coumadin) Patient on anticoagulant therapy Transmission Information (TI) Device Summary Report us Luís Coronado MD PhD CV CARDIAC SERVICES HI OCEDURES Final Result * CK (06/15/2024) Pathologist [facility] CPK (CK), TOTAL 77 39 - 308 [facility] 06/15/2024 us Marlo Herbert MD PhD LAB BLOOD ORDERABL ES Final Result Performing Organization Address City/[facility]/ZIP Co de Phone Number [facility] [address] [phone] * (ABNORMAL) CBC with auto differential (06/15/2024) [facility] SCRIBED WBC 28.33(A) 3.29 - 11.43 k/cumm [facility] SCRIBED Hemoglobin 13.10 11.27 - 16.99 g/dL [facility] SCRIBED Hematocrit 41.2 37 - 53 % [facility] SCRIBED Platelets 170 157 - 399 k/cumm [facility] Blood 06/15/2024 us Marlo Herbert MD PhD LAB BLOOD ORDERABL ES Final Result Performing Organization Address City/[facility]/ZIP Co de Phone Number [facility] [address] [place], [place] [id number] [place] [address] * (ABNORMAL) Protime-INR (06/15/2024) INR 2.47(A) 0.90 - 1.10 Blood Ekta Narayanan MD LAB BLOOD ORDERABLES Katie l Result * (ABNORMAL) Protime-INR (06/15/2024) Pathologist [facility] SCRIBED PT 28.10(A) 12.1 - 14.9 sec [facility] IN[facility] 2.47(A) 0.8 - 1.2 sec [facility] Blood 06/15/2024 Marlo Herbert MD PhD LAB BLOOD ORDERABL ES Final Result Performing Organization Address [facility] Co de Phone Number [facility] [address] [phone] * Lactate dehydrogenase (LD) (06/15/2024) Pathologist [facility] SCRIBED LDH 204 135 - 225 IUnit/mL [facility] Blood 06/15/2024 Result [facility] Marlo Herbert MD PhD LAB BLOOD ORDERABL ES Final Result Performing Organization Address [facility] de Phone Number [facility] [address] [phone] * (ABNORMAL) Comprehensive metabolic panel (06/15/2024) SCRIBED Sodium 137 136 - 145 mmol/L [facility] S[facility] Potassium 4.6 3.5 - 5.1 mmol/L [facility] SCR[facility] Chloride 102 98 - 107 mmol/L [facility] SCR[facility] Carbon Dioxide 21(A) 22 - 29 mmol/L [facility] SCR[facility] Anion Gap 18.6 5 - 19 mmol/L [facility] SCRIBED Urea Nitrogen (BUN) 35(A) 8 - 23 mg/dl [facility] SCRIBED Creatinine 1.8(A) 0.7 - 1.2 mg/dl [facility] SCRIBED Glucose 154(A) 65 - 115 mg/dl [facility] SCRIBED Calcium 98.4(A) 8.5 - 10.5 mg/dl [facility] SCRIBED Bilirubin 0.8 0.15 - 1.2 mg/dl [facility] SCRIBED Plasma Protein 7.2 6.6 - 8.7 g/dl [facility] SCRIBED Albumin 4.1 3.5 - 5.2 g/dl [facility] SCRIBED Alkaline Phosphatase 96 40 - 130 Units/L [facility] SCRIBED Alanine Transaminase (ALT) 29 0 - 41 Units/L [facility] SCRIBED Aspartate Transaminase (AST) 28 0 - 40 Units/L [facility] SCRIBED eGFR in NonAfrican [place]er 38.2(A) 90 - 130 [facility] Serum Osmolality 295 285 - 295 [facility] Blood 06/15/2024 us Marlo Herbert MD PhD LAB BLOOD ORDERABL ES Edited Result - Final Performing Organization Address City/[facility]/ZIP Co de Phone Number [facility] [address] [phone] * Hepatitis panel, acute Blood (05/30/2024 10:40 AM CDT) Hep A IgM Nonreactive Nonreactive Hep B core IgM Nonreactive Nonreactive [facility] Hep C Ab Nonreactive Nonreactive [facility] Comment:Antibodies to HCV no t detected. Does NOT exclude the possibility of recent exposure to HCV. Current interpretive data was last revised on 21 HepBsAg Nonreactive Nonreactive [facility] Blood 05/30/2024 10:4 0 AM CDT 05/30/2024 11:10 AM CDT us Rama Zavala MD LAB MICROBIOLOGY - GENERA L ORDERABLES Final Result [facility] [place] [address] * (ABNORMAL) Hemoglobin A1c (03/02/2024 9:54 AM REWRITER) SCRIBED Hemoglobin A1c 6.3(A) 4.0 - 6.0 % EXTERNAL LAB Blood 03/02/2024 9:54 AM REWRITER us Marlo Herbert MD PhD LAB BLOOD ORDERABL ES Final Result EXTERNAL LAB * (ABNORMAL) Lipid panel (06/17/2023) SCRIBED Cholesterol, Total 139 0 - 200 SCRIBED HDL 54(A) 60 - 100 SCRIBED LDL 58 50 - 129 SCRIBED Triglycerides 134 0 - 150 Blood 06/17/2023 us Martine Wilson BENCH ASSEMBLY INSPECTOR LAB BLOOD ORDERABLES Final Re sult * CT Chest Abdomen Pelvis WO Contrast (01/13/2023 1:51 PM REWRITER) Anatomical Region Laterality Modality Body N/A Computed Tomogra phy 01/13/2023 3:31 PM REWRITER Impressions 01/13/2023 3:54 PM REWRITER 1. Post surgical changes of LVAD placement and Impella device placement/removal. A small fluid collection adjacent to the fluid tract of the right chest wall favors postsurgical seroma given recent surgery. Superimposed infection is difficult to exclude. Ultrasound may be helpful for further evaluation. 2. New moderate left and small right pleural effusions with collapsed left lower lobe and consolidations likely representing atelectasis. Superimposed infection is also difficult to exclude. 3. Postsurgical changes in bilateral groin with fluid tracts into the right femoral artery and vein and small hematoma in the left groin. 4. Subcentimeter hyperattenuating lesion of the left upper pole kidney is stable and likely a hemorrhagic/proteinaceous cyst. Attention on follow-up. Dictated by: Mei Flynn MD, PhD. The radiology attending physician has personally reviewed this study, and had reviewed and/or edited this written report and agrees with it. Electronically signed by: Benito Sanchez MD Narrative 01/13/2023 3:54 PM REWRITER EXAMINATION: Computed tomography of the chest, abdomen and pelvis without intravenous contrast HISTORY: 62-year-old male who presented with acute on chronic chest pain 11/13/2022, cardiac arrest 11/28/2022 requiring ECMO and Impella. Exchange ventricular assist device 12/31/2022. Reason for study: Infection source, sepsis. TECHNIQUE: Transaxial computed tomographic images of the chest, abdomen and pelvis were obtained without intravenous contrast according to the standard protocol. COMPARISON: CT of chest abdomen pelvis 11/14/2022 FINDINGS: Noncontrast technique limits diagnostic accuracy. Chest: Subcentimeter hypoattenuating left thyroid nodule appears unchanged compared to prior. New moderate left and small right pleural effusions with left lower lobe collapse and bilateral consolidations likely representing atelectasis. There is no pneumothorax or suspicious pulmonary nodule. Left ventricular dilation with severe calcified coronary artery disease/ stenting. Trace pericardial effusion. Postsurgical changes from median sternotomy and left ventricular assist device placement. Patency of the outflow tract cannot be evaluated due to noncontrast technique. The drive line is visualized without fluid or stranding along its tract. Epicardial pacing wires are in place. Mediastinal drain in place with tip adjacent to the esophagus. Postoperative changes from prior Impella device placement and removal with small fluid filled tract in the right anterior chest wall. A small fluid collection adjacent to this tract measures 2.8 x 2.3 cm (series 2, image 35). Small superficial skin defect inferior to the fluid tract. Tiny locules of gas in the anterior chest wall are likely postoperative related. Median sternotomy plates are seen1. Left IJ central venous catheter with tip terminating at the junction of the left brachiocephalic vein and superior vena cava. The course and caliber of the thoracic aorta and main pulmonary artery are normal. No pathologic lymphadenopathy. Abdomen/Pelvis: Calcified granulomas in the liver and spleen. There is no intrahepatic or extrahepatic biliary ductal dilation. The gallbladder appears distended with cholelithiasis. No cholecystitis. The pancreas and right adrenal gland appears normal. Hypoattenuating 1.9 cm left adrenal nodule favored to represent an adrenal adenoma. Scattered hypoattenuating lesions in the right renal cortex favored to represent renal cysts. Small nonobstructing left nephrolithiasis. Stable subcentimeter hyperattenuating lesion in the upper pole of the left kidney favored to represent a hemorrhagic cyst (series 2, image 171). There is no hydronephrosis. There is wall thickening of an underdistended bladder with intraluminal gas secondary to catheterization. There are hyperattenuating contents in the urinary bladder which may represent hemorrhage or excreted contrast. Moderate prostatomegaly. There is fluid in the esophagus. The stomach and duodenum appear normal. There is radiodense material in the stomach. The visualized small bowel normal. The appendix is normal. No bowel wall thickening or bowel obstruction. Mild diverticulosis without diverticulitis. No intraperitoneal free air or free fluid. Interval decrease in size of pericaval lymph node measures 1.2 cm, previously measuring 1.4 cm (series 2, image 173). No suspicious abdominal or pelvic lymphadenopathy. Postsurgical changes in bilateral groin. A fluid tract is seen in the right groin to the right femoral artery and another tract to the right femoral vein, likely seromas. Small hematoma in the left groin measures 2.7 cm. Fat-containing left inguinal hernia. The course and caliber of the abdominal aorta is normal. Diffuse atherosclerotic calcifications of the abdominal aorta and its branching vessels. No suspicious osseous lesions. Chronic bilateral rib deformities. Procedure Note Benito Sanchez MD - 01/13/2023 EXAMINATION: Computed tomography of the chest, abdomen and pelvis without intravenous contrast HISTORY: 62-year-old male who presented with acute on chronic chest pain 11/13/2022, cardiac arrest 11/28/2022 requiring ECMO and Impella. Exchange ventricular assist device 12/31/2022. Reason for study: Infection source, sepsis. TECHNIQUE: Transaxial computed tomographic images of the chest, abdomen and pelvis were obtained without intravenous contrast according to the standard protocol. COMPARISON: CT of chest abdomen pelvis 11/14/2022 FINDINGS: Noncontrast technique limits diagnostic accuracy. Chest: Subcentimeter hypoattenuating left thyroid nodule appears unchanged compared to prior. New moderate left and small right pleural effusions with left lower lobe collapse and bilateral consolidations likely representing atelectasis. There is no pneumothorax or suspicious pulmonary nodule. Left ventricular dilation with severe calcified coronary artery disease/ stenting. Trace pericardial effusion. Postsurgical changes from median sternotomy and left ventricular assist device placement. Patency of the outflow tract cannot be evaluated due to noncontrast technique. The drive line is visualized without fluid or stranding along its tract. Epicardial pacing wires are in place. Mediastinal drain in place with tip adjacent to the esophagus. Postoperative changes from prior Impella device placement and removal with small fluid filled tract in the right anterior chest wall. A small fluid collection adjacent to this tract measures 2.8 x 2.3 cm (series 2, image 35). Small superficial skin defect inferior to the fluid tract. Tiny locules of gas in the anterior chest wall are likely postoperative related. Median sternotomy plates are seen1. Left IJ central venous catheter with tip terminating at the junction of the left brachiocephalic vein and superior vena cava. The course and caliber of the thoracic aorta and main pulmonary artery are normal. No pathologic lymphadenopathy. Abdomen/Pelvis: Calcified granulomas in the liver and spleen. There is no intrahepatic or extrahepatic biliary ductal dilation. The gallbladder appears distended with cholelithiasis. No cholecystitis. The pancreas and right adrenal gland appears normal. Hypoattenuating 1.9 cm left adrenal nodule favored to represent an adrenal adenoma. Scattered hypoattenuating lesions in the right renal cortex favored to represent renal cysts. Small nonobstructing left nephrolithiasis. Stable subcentimeter hyperattenuating lesion in the upper pole of the left kidney favored to represent a hemorrhagic cyst (series 2, image 171). There is no hydronephrosis. There is wall thickening of an underdistended bladder with intraluminal gas secondary to catheterization. There are hyperattenuating contents in the urinary bladder which may represent hemorrhage or excreted contrast. Moderate prostatomegaly. There is fluid in the esophagus. The stomach and duodenum appear normal. There is radiodense material in the stomach. The visualized small bowel normal. The appendix is normal. No bowel wall thickening or bowel obstruction. Mild diverticulosis without diverticulitis. No intraperitoneal free air or free fluid. Interval decrease in size of pericaval lymph node measures 1.2 cm, previously measuring 1.4 cm (series 2, image 173). No suspicious abdominal or pelvic lymphadenopathy. Postsurgical changes in bilateral groin. A fluid tract is seen in the right groin to the right femoral artery and another tract to the right femoral vein, likely seromas. Small hematoma in the left groin measures 2.7 cm. Fat-containing left inguinal hernia. The course and caliber of the abdominal aorta is normal. Diffuse atherosclerotic calcifications of the abdominal aorta and its branching vessels. No suspicious osseous lesions. Chronic bilateral rib deformities. IMPRESSION: 1. Post surgical changes of LVAD placement and Impella device placement/removal. A small fluid collection adjacent to the fluid tract of the right chest wall favors postsurgical seroma given recent surgery. Superimposed infection is difficult to exclude. Ultrasound may be helpful for further evaluation. 2. New moderate left and small right pleural effusions with collapsed left lower lobe and consolidations likely representing atelectasis. Superimposed infection is also difficult to exclude. 3. Postsurgical changes in bilateral groin with fluid tracts into the right femoral artery and vein and small hematoma in the left groin. 4. Subcentimeter hyperattenuating lesion of the left upper pole kidney is stable and likely a hemorrhagic/proteinaceous cyst. Attention on follow-up. Dictated by: Mei Flynn MD, PhD. The radiology attending physician has personally reviewed this study, and had reviewed and/or edited this written report and agrees with it. Electronically signed by: Benito Sanchez MD Catherine Reardon BENCH ASSEMBLY INSPECTOR IMG CT PROCEDURES Final Resul t * (ABNORMAL) PSA diagnostic (11/14/2022 9:11 AM CDT) PSA-Total 6.46(H) <=5.40 ng/mL [facility] Comment: Interpretive Data AGE SEX REFERENCE INTERVAL 0 minutes-150 years Female None 0 minutes-49 years Male None 50-59 years Male 0-3.90 60-69 years Male 0-5.40 70-79 years Male 0-6.20 80-150 years Male 0-6.20 The Vishnu PSA Total assay procedure was used. Results from different manufacturers or methods may not be comparable. Serial testing should be performed using the same method. Current interpretive data last revised 21. Blood 11/14/2022 9:11 AM CDT 11/14/2022 9:30 AM CDT us Pj Krishnamurthy MD PhD LAB BLOOD ORDERABLES F inal Result [facility] [place] [address] from Last 3 Months or Most Recently Relevant to Health Maintenance Insurance [facility] [place] Member Subscriber Plan / Payer (Ef fective 2022-Present) Name:Bud Romero Renaldo Relation to Subscriber:Self Name:Bud Romero Renaldo Payer ID:[id number] (NAIC) Group ID:Not on file Type:MEDICAID RISK OTHER Address: [address] [place] Advance Directives For more information, please contact: [phone] Documents on File Type Date Recorded Patient Class A Regional Drivers Expl anation ADVANCE DIRECTIVE 12/31/2022 2:44 AM CAROLE R OF [employer] FEEDER-MEDICAL ADVANCE DIRECTIVE 12/26/2022 5:54 PM CAROLE R OF [employer] FEEDER-MEDICAL * Full Code (Latest Code Status on File) Date Activated Date Inactivated Comments 12/31/2022 3:54 PM 01/28/2023 10:06 PM * Full Code Date Activated Date Inactivated Comments 11/13/2022 7:30 PM 12/31/2022 3:54 PM Care Teams Media Theorist And Author Of Relationship Specialty Start Date End Date Martine Wilson NP [address] [place] [address] PCP - General Family Practice 11/14/22 Janae Serna, RN VAD Coordinator 02/25/24 Derick Su DO [address] [address] Family Medicine 07/19/24
--- OUTSIDE RECORDS SUMMARY | 2024-09-10 15:11 | XMS_ITS ---
Author Organization [employer]SN Address [address] [facility] Attn: Epic Prelude ADT YAMILEX HERNANDEZ [address] Care Team Providers Care Customer Contact Representative Name Role Phone Derick Su DO Primary Care Provider [phone] Active Problems Problem Noted Date Diagnosed Date Chronic lymphocytic leukemia 06/07/2024 Benign hypertensive heart an d kidney disease with CHF, NYHA class 3 and CKD end stage 01/20/2024 Overview (07/18/2024): LVAD placed Dec 29; Notes:LVAD placed Dec 29, was on empella heart pump prior. Goals of care are to get heart transplant. Follows with Cardiology ken Tejeda Q3 mos. After LVAD placement, pt had electrical problems, ?flat lined? and was resuscitated with CPR, now has PPM with defibrillator. Pt feels he will hear about transplant decision in July or August. Low income 01/20/2024 Overview (07/18/2024): On early mcc, concerns for keeping up on bills; Notes:Lives with son. Daughter lives across the street. On early mcc, gets food stamps. Does help government assistance for utilities. In home [facility] Occlusion and stenosis of basilar [...] symptoms (LUTS) 05/04/2023 Dyslipidemia 05/04/2023 Atherosclerosis of [place] ronary artery without angina pectoris 02/22/2023 [...] fractures 04/16/2019 Elbow laceration, right, initial encounter Current Treatment and Therapy Plans No current plan information found. Past Treatment and Therapy Plans No past plan information found. Lifetime Dose Tracking * Chemical Lifetime Dose Automatic Entry Manual Entr y Effective Dose 72.9 mSv 34.5 mSv 38.4 mSv Total DLP 7,245.3 DLP 2,302.3 DLP 4,943 DLP CTDIvol Max 207.2 mGy 32.7 mGy 174.5 mGy CTDIvol Min 163.7 mGy 32.7 mGy 131 mGy Resolved Problems Problem Noted Date Diagnosed Date Resolved Date Ventricular tachycardia 02/22/2023 06/0 03/2024 Right orbit fracture 04/16/2019 021 Closed fracture of right side of maxilla 04/16/2019 03/26/2020
--- OUTSIDE RECORDS SUMMARY | 2024-09-10 15:11 | XMS_ITS ---
Author Organization [facility] Address [address] [place] [address] Care Team Providers Care Sanding Line Operator Name Role Phone Martine Wilson NP Primary Care Provider [phone] Janae Serna RN Unavailable [phone] Derick Su DO Unavailable [phone] Transplant Episode Heart Candidate [facility] ([place], [place]) - [facility] Evaluation began on 11/24/2022 Marked as Deferred on 11/24/2022 Reason: VAD-BTT Heart CoordinatorJanae Serna RN Fax: N/A Email: N/A Care Team Name Role Phone Fax Email Janae Serna RN Imaging Administrator [phone] N/A N/A Events Pre-Transplant Referred: 11/10/2022 Evaluation began: 11/24/2022 Committee: 11/21/2022
--- OUTSIDE RECORDS SUMMARY | 2024-09-10 15:11 | XMS_ITS | Clinical Summary ---
Author Organization [facility] Address [address] [place] [address] Care Team Providers Care Heating Element Builder Name Role Phone Martine Wilson NP Primary Care Provider [phone] Janae Serna RN Unavailable [phone] Derick Su DO Unavailable [phone] Allergies Active Allergy Reactions Criticality Noted Date [...] mg total) by mouth daily 90 tablet 3 09/06/19 25 026 Active isosorbide mononitrate ER (IMDUR) 30 mg 24 hr tablet Take 1 tablet (30 mg total) by mouth daily 90 tablet 3 09/06/[address] (PROTONIX) 40 mg EC tabletIndicati ons:Stress Ulcer Prophylaxis Take 1 tablet (40 mg total) by mouth 2 (two) times a day 180 tablet 3 09/06/19 25 026 Active potassium chloride ER (KLOR-CON) 20 mEq CR tablet Take 2 tablets (40 mEq total) by mouth daily 180 tablet 3 09/06/19 25 026 Active traZODone (DESYREL) 150 mg tablet Take 1 tablet (150 mg total) by mouth nightly 90 tablet 3 09/06/19 25 026 Active warfarin (COUMADIN) 6 mg tablet Take 1 tablet (6 mg total) by mouth daily 90 tablet 3 09/06/19 25 Active atorvastatin (LIPITOR) 40 mg [...] (two) times a day 60 tablet 11 07/08/19 025 Discontinued(R eorder) warfarin (COUMADIN) 1 mg tablet 6 mg daily 07/21/19 25 025 Discontinued(A lternate therapy) warfarin (COUMADIN) 2 mg tablet 6 mg daily 07/21/19 25 025 Discontinued warfarin (COUMADIN) 5 mg tablet 6 mg daily 07/21/19 25 025 Discontinued(A lternate therapy) atorvastatin (LIPITOR) 40 mg tablet Take 1 tablet (40 mg total) by mouth nightly 90 tablet 3 08/16/19 025 Discontinued(R eorder) warfarin (COUMADIN) 5 mg [...] 01/25/2023 Assessment & Plan (01/26/2023 3:23 AM EMPLOYMENT APPEALS EXAMINER): Pt states he has constipation issues at [...] ordered Assessment & Plan (01/23/2023 1:12 PM EMPLOYMENT APPEALS EXAMINER): -Elevated WBC 01/16, started on Cefepime -Urine culture +for Klebsiella and E Coli, susceptible to Cefepime 01/20 changed to ceftriaxone total duration 7 days thru 01/23 -Daily CBC and follow fever curve Cardiogenic postoperative shock 01/07/2023 Assessment & Plan (01/23/2023 1:11 PM EMPLOYMENT APPEALS EXAMINER): Patient had been worked up for LVAD [...] Heart Mate 3 placed 5100/3.4 -VVI @60 -NEWS INTERNSHIP off 01/10, ECHO SUMMARY: AV closed all [...] 01/07/2023 Assessment & Plan (01/23/2023 1:13 PM EMPLOYMENT APPEALS EXAMINER): [place] [address] s/p cardiac arrest on 11/28. Left side [...] placed Assessment & Plan (01/28/2023 11:30 AM EMPLOYMENT APPEALS EXAMINER): 12/31 Heart Mate 3 LVAD placed - ASA/ Statin - bowel regimen/ PPI - daily weights - coumadin, INR goal 2-3, SCD's - reg reg diet / heart healthy low sodium diet - rn prior authorization spoke with and gave pt family resources [...] locally) Assessment & Plan (01/22/2023 10:43 AM EMPLOYMENT APPEALS EXAMINER): - Electrolyte repletion as needed - Avoid [...] severe disease of the left main/LAD/LCx bifurcation, ASSISTANT CENTER DIRECTOR of the proximal RCA [fills via left-right collaterals] -He was deemed high risk for CABG and is currently being offered an LVAD next Thursday . GDMT. On hold related to MARITO . PCI has not been discussed with him (his LM/LAD/LCx bifurcation may be a reasonable target). He also has not had discussion of FILM LABORATORY TECHNICIAN. -pt had episode of nitrate-responsive (SL x 2 ) angina 11/24 (left breast pain/+ diaphoresis and pale )--EKG with chronic LBBB but rate more tachy. - heparin gtt -telemetry -Continue aspirin and statin Assessment & Plan (11/27/2022 11:26 AM CDT): -NSTEMI, trops elevated, mild chest pain that self terminated without nitro. -pt has severe disease of the left main/LAD/LCx bifurcation, ASSISTANT CENTER DIRECTOR of the proximal RCA [fills via left-right collaterals] -He was deemed high risk for CABG and is currently being offered an LVAD next Thursday . GDMT. On hold related to MARITO . PCI has not been discussed with him (his LM/LAD/LCx bifurcation may be a reasonable target). He also has not had discussion of FILM LABORATORY TECHNICIAN. -pt had episode of nitrate-responsive (SL x [...] -Severe disease of the left main/LAD/LCx bifurcation, ASSISTANT CENTER DIRECTOR of the proximal RCA [fills via left-right collaterals] -Continue to trend trops -He was deemed high risk for CABG and is currently being evaluated for LVAD. He is only on low dose GDMT. PCI has not been discussed with him (his LM/LAD/LCx bifurcation may be a reasonable target). He also has not had discussion of FILM LABORATORY TECHNICIAN. -Telemetry -Continue aspirin and statin Assessment & Plan (11/20/2022 8:28 AM CDT): -NSTEMI, trops elevated, mild chest pain that self terminated without nitro. -Severe disease of the left main/LAD/LCx bifurcation, ASSISTANT CENTER DIRECTOR of the proximal RCA [fills via left-right collaterals] -Continue to trend trops -He was deemed high risk for CABG and is currently being evaluated for LVAD. He is only on low dose GDMT. PCI has not been discussed with him (his LM/LAD/LCx bifurcation may be a reasonable target). He also has not had discussion of FILM LABORATORY TECHNICIAN. -Telemetry -Continue aspirin and statin Assessment & Plan (11/19/2022 1:21 PM CDT): -NSTEMI, trops elevated, mild chest pain this morning self terminated without nitro. -Severe disease of the left main/LAD/LCx bifurcation, ASSISTANT CENTER DIRECTOR of the proximal RCA [fills via left-right collaterals] -Continue to trend trops -He was deemed high risk for CABG and is currently being evaluated for LVAD. He is only on low dose GDMT. PCI has not been discussed with him (his LM/LAD/LCx bifurcation may be a reasonable target). He also has not had discussion of FILM LABORATORY TECHNICIAN. -Telemetry -Continue aspirin and statin Assessment & Plan (11/18/2022 11:45 AM CDT): -NSTEMI, trops elevated, mild chest pain this morning self terminated without nitro. -severe disease of the left main/LAD/LCx bifurcation, ASSISTANT CENTER DIRECTOR of the proximal RCA [fills via left-right collaterals] -Continue to trend trops -He was deemed high risk for CABG and is currently being evaluated for LVAD. He is only on low dose GDMT. PCI has not been discussed with him (his LM/LAD/LCx bifurcation may be a reasonable target). He also has not had discussion of FILM LABORATORY TECHNICIAN. -telemetry -asa, statin Assessment & Plan (11/17/2022 7:42 AM CDT): -NSTEMI, trops elevated, mild chest pain this morning self terminated without nitro. -severe disease of the left main/LAD/LCx bifurcation, ASSISTANT CENTER DIRECTOR of the proximal RCA [fills via left-right collaterals] -Continue to trend trops -He was deemed high risk for CABG and is currently being evaluated for LVAD. He is only on low dose GDMT. PCI has not been discussed with him (his LM/LAD/LCx bifurcation may be a reasonable target). He also has not had discussion of FILM LABORATORY TECHNICIAN. -telemetry -asa, statin Assessment & Plan (11/14/2022 2:54 PM CDT): -NSTEMI, trops elevated, mild chest pain this morning self terminated without nitro. -severe disease of the left main/LAD/LCx bifurcation, ASSISTANT CENTER DIRECTOR of the proximal RCA [fills via left-right collaterals] -Continue to trend trops -He was deemed high risk for CABG and is currently being evaluated for LVAD. He is only on low dose GDMT. PCI has not been discussed with him (his LM/LAD/LCx bifurcation may be a reasonable target). He also has not had discussion of FILM LABORATORY TECHNICIAN. That being said, much of his myocardium does appear thinned, however his chest pain suggests viability. He will be evaluated by the Advanced Heart Failure/Transplant team. -telemetry -asa, statin Cardiomyopathy, ischemic 11/10/2022 Lower urinary tract symptoms (LUTS) 09/25/2020 DM (diabetes mellitus), type 2 04/18/2019 Assessment & Plan (01/23/2023 1:12 PM EMPLOYMENT APPEALS EXAMINER): -On Farxiga and Glipizide at home -Diet [...] He also has not had discussion of FILM LABORATORY TECHNICIAN. -RHC 11/17: showing normal right and left [...] He also has not had discussion of FILM LABORATORY TECHNICIAN. -RHC 11/17: showing normal right and left [...] He also has not had discussion of FILM LABORATORY TECHNICIAN. -RHC 11/17: showing normal right and left [...] He also has not had discussion of FILM LABORATORY TECHNICIAN. -RHC 10/2: showing normal right and left filling pressures, [...] He also has not had discussion of FILM LABORATORY TECHNICIAN. -RHC 10: showing normal right and left filling pressures, [...] He also has not had discussion of FILM LABORATORY TECHNICIAN. -Appears euvolemic, hemodynamically stable -Continue Lasix 80 [...] He also has not had discussion of FILM LABORATORY TECHNICIAN. -Appears euvolemic, hemodynamically stable -Continue Lasix 80 [...] He also has not had discussion of FILM LABORATORY TECHNICIAN. That being said, much of his myocardium [...] spironolactone 25 mg daily -daily weights, I&Os Encounters Date Type Department Care Team Description 09/05/2024 Orders Only [facility] Transplant Heart [address] [facility] [address] Mailstop [phone] [place] [address] Janae Serna RN 09/05/2024 Telephone [facility] Transplant Heart [address] [facility] [address] Mail[address] 90-29-906 [place] [address] Maury Hunter 08/26/2024 Orders Only [facility] Infectious Diseases [address] [facility] [address] [place] [phone] Fanny Fortune, HENRRY 08/26/2024 Telephone [facility] Infectious Diseases [address] [facility] [address] [place] [phone] Lisa Goodwin, REG 08/23/2024 Documentation [facility] Transplant Heart [address] [facility] [address] Mailstop [phone] [place] [address] Lola Natarajan LVAD Equipment Replacement (Clip Set) 08/22/2024 Telephone [facility] Transplant Heart [address] [facility] [address] Mail[address] [phone] [place] [address] Janae Serna, RN 2024 Anticoagulation Telephone Call [facility] Transplant Heart [address] [facility] [address] Mail[address] [phone] [place] [address] Janae Serna, RN 08/15/2024 Telephone [facility] Transplant Heart [address] [facility] [address] Mail[address] [phone] [place] [address] Maury Hunter 08/15/2024 Telephone [facility] Transplant Heart [address] [facility] [address] [phone] [place] [address] Mayela Alarcon, HENRRY 08/03/2024 Anticoagulation Telephone Call [facility] Transplant Heart [address] [facility] [address] Mail[address] [phone] [place] [address] Janae Serna, RN 08/02/2024 Documentation [facility] Transplant Heart [address] [facility] [address] Mailstop [phone] [place] [address] Janae Serna, RN 07/28/2024 Documentation [facility] Transplant Heart [address] [facility] [address] Mailstop -[phone] [place] [address] Janae Serna, RN 07/20/2024 Anticoagulation Telephone Call [facility] Transplant Heart [address] [facility] [address] Mailstop -[phone] [place] [address] Janae Serna RN 07/20/2024 Telephone [facility] Transplant Heart [address] [facility] [address] Mailstop -[phone] [place] [address] Janae Serna RN 07/13/2024 Telephone [facility] Transplant Heart [address] [place] [address] 34[address] Mailstop -[phone] [place] [address] Jnaae Serna RN 07/07/2024 10:50 AM CDT Lab [facility] [address] [place] [address] Palpitations; Ventricular tachycardia (paroxysmal) (HCC); MCFP current use of amiodarone; LVAD (left ventricular assist device) present (HCC); termite control technician 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 therapy 07/07/2024 10:30 AM CDT Office Visit [facility] Cardiology [address] [place] [address] Office [address] [phone] LVAD (left ventricular assist device) present (HCC) (Primary Dx); termite control technician 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 therapy; Cardiomyopathy, ischemic; Coronary artery disease involving assiniboine and sioux coronary artery of assiniboine and sioux heart without angina pectoris 07/07/2024 10:00 AM CDT Office Visit [facility] Infectious Diseases [address] [place] [address] Office Building [address] [phone] Stas Marin MD 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); Encounter for long-term (current) use of antibiotics 07/07/2024 9:30 AM CDT Office Visit [facility] Cardiology [address] [place] [address] Office Building [address] [place] [address] Maria Alejandra Winter NP Palpitations (Primary Dx); Ventricular tachycardia (paroxysmal) (HCC); termite control technician current use of amiodarone; LVAD (left ventricular assist device) present (HCC); ICD (implantable cardioverter-defibri llator) in place 07/07/2024 9:00 AM CDT Ancillary Procedure [facility] Cardiology [address] [place] [address] Medical Office Building 3 [address] [place] [address] Ventricular tachycardia (paroxysmal) (HCC) (Primary Dx); Encounter for fitting or adjustment of implantable cardioverter-defibri llator (ICD); Cardiomyopathy, ischemic [I25.5] 07/07/2024 Anticoagulation Telephone Call [facility] Transplant Heart [address] [facility] [address] Mailstop -[phone] [place] [address] Janae Serna RN 07/07/2024 Results Follow-Up [facility] Cardiology [address] [facility] Advanced Medicine 8th [place] [address] [place] [phone] Maria Alejandra Winter NP ECG 12 lead, TSH 06/30/2024 Anticoagulation Telephone Call [facility] Transplant Heart [address] [place] [address] 340 Mailstop -[phone] [place] [address] Janae Serna RN 06/15/2024 Orders Only [facility] Cardiology [address] [place] [address] Medical Office Building 3 [address] [place] [address] Luís Coronado MD PhD 06/15/2024 Anticoagulation Telephone Call [facility] Transplant Heart [address] [facility] [address] Mailstop [phone] [place] [address] Janae Serna, RN from Last 3 Months Immunizations Immunization Administration Dates Next Due Hep B, Unspecified 11/06/1997 Tdap 04/16/2019 Surgical History Surgery Date Site/Laterality Comments TRANSURETHRAL RESECTION OF PROSTATE CYSTOSCOPY KNEE SURGERY Medical History Medical History Date Comments BPH (benign prostatic hyperplasia) Diabetes (HCC) Dyslipidemia HTN (hypertension) Coronary artery disease Type II diabetes mellitus (HCC) Coffee ground emesis 11/12/2022 Family History Medical History Relation Name Comments Cancer Mother Diabetes Mother Heart disease Mother Anesthesia problems Neg Hx Relation Name Status Comments Mother Social History Tobacco Use Types Packs/Day [...] often do you attend chur ch or taoism services? Never 11/18/2022 Do you belong to any clubs o r organizations such as evangelical groups, unions, fraternal or athletic groups, or [...] place to sleep or slept in a group home (including now)? No 11/18/2022 Personal Safety Answer [...] on file Sexual Orientation Not on file Obstetrics History Last Filed Vital Signs Vital Sign Reading Time Taken Comments Blood Pressure 86/0 07/07/2024 9:40 AM CDT Pulse 49 07/07/2024 9:34 AM CDT Temperature 36.5 C (97.7 F) 05/30/2024 9:36 AM CDT Respiratory Rate 20 03/09/2023 11:12 AM EMPLOYMENT APPEALS EXAMINER Oxygen Saturation 97% 07/07/2024 9:34 AM CDT Inhaled Oxygen Concentration - - Weight 114.3 kg (252 lb) 07/07/2024 9:34 AM CDT Height 178.7 cm (5' 10.35 ) 07/07/2024 9:34 AM C DT Body Mass Index 35.8 07/07/2024 9:34 AM CDT Plan of Treatment Health Maintenance Due Date Last Done Comments Albumin Creatinine Ratio, Urine 1959 Colon Cancer Screening-Colonoscopy 1959 Depression Screening 1959 Dilated Eye Exam 1959 Foot Exam 1959 Pneumococcal vaccine 65+ (1 of 2 - PCV) 08/16/1978 Zoster Vaccine (1 of 2) 08/16/1978 Fall Risk Assessment 01/29/2024 01/28/2023 Lipid Panel 06/16/2024 06/17/2023, 08/2022, 11/29/2022, Additional history exists Abdominal Aortic Aneurysm (A AA) Screen 08/16/2024 09/16/2023, 01/13/2023, 11/14/2022, Additional history exists Well Visit 65+ 08/16/2024 Hemoglobin A1C 08/30/2024 03/02/2024, 02/2023, 11/13/2022, Additional history exists Influenza Vaccine (#1) 2024 Prostate Cancer Screening-PSA 11/14/2024 11/14/2022 eGFR 2025 2024, 07/17, 07/20/2024, Additional history exists DTaP/Tdap/Td Vaccine (2 - Td or Tdap) 04/15/2029 04/16/2019 Hepatitis B Screening Completed 05/30/2024, 998 Hepatitis C Screening Completed 05/30/2024 , 11/14/2022, 11/14/2022 Medical Devices Implanted Type Area Developmental Writing Instructor Device Identifier Shelf Expiration Date Model / Serial / Lot [employer] Luis Defibrillator Dual Chamber Cinetechnician D Mri Compatible Vigilant 0.99x5.37x7.68cm D233 - [id number] - [id number] Implanted:Qty: 1 on 01/22/2023 by Luís Coronado MD PhD at [facility] ICD Left: Chest Wall [employer] Luis 09/29/2024 D233 / [id number] / [id number] [employer] Fineline Ii Sterox Ez 1.7mm 52cm Bipolar Active Fixation Screw 4470 - [id number] - [id number] Implanted:Qty: 1 on 01/22/2023 by Luís Coronado MD PhD at [facility] Lead Right: Atria [employer] Luis 12/10/2024 4470 / [id number] / [id number] [employer] Luis Anderson 4-Front 64cm Dual-Coil Active Fixation Icd Lead 0676 - [id number] - [id number] Implanted:Qty: 1 on 01/22/2023 by Luís Coronado MD PhD at [facility] Lead Right: Ventricle [employer] Luis 02/26/2023 0676 / [id number] / [employer] Plate Bone Low Profile 6 Hole H Shape Sternum Ti 115.102.06 - [id number] Implanted:Qty: 2 on 12/31/2022 by Erlin Ramos MD at [facility] Plate N/A: Sternum [employer] 115.102.0 6 / / [employer] Plate Bone Low Profile 6 Hole O Shape Sternum Ti 115.104.06 - [id number] Implanted:Qty: 1 on 12/31/2022 by Erlin Ramos MD at [facility] Plate N/A: Sternum [employer] 115.104.0 6 / / [employer] Screw Bone Slf Drl Full Thread Locking 3.5x14mm Ti 100.035.14 - [id number] Implanted:Qty: 4 on 12/31/2022 by Erlin Ramos MD at [facility] Screw N/A: Sternum [employer] 100.035.1 4 / / [employer] Screw Bone Slf Drl Full Thread Locking 3.5x16mm Ti 100.035.16 - [id number] Implanted:Qty: 12 on 12/31/2022 by Erlin Ramos MD at [facility] Screw N/A: Sternum [employer] 100.035.1 6 / / [employer] Screw Bone Slf Drl Full Thread Locking 3.5x18mm Ti 100.035.18 - [id number] Implanted:Qty: 2 on 12/31/2022 by Erlin Ramos MD at [facility] Screw N/A: Sternum [employer] 100.035.1 8 / / Terumo Cardio Vascular Gelweave 10mm 30cm Suture Retention Unique Hydrolyzable Abdomen 909374 - [id number] - [id number] Implanted:Qty: 1 on 12/01/2022 by Erlin Ramos MD at [facility] Right: Clavicle [employer]ascular [id number] 08/15/2025 666993 / [id number] / [id number] [employer] Kit Ventricular Assist Device Pump Percutaneous Impella 5.5 Smartassist [id number] - [id number] - [id number] Implanted:Qty: 1 on 12/01/2022 by Erlin Ramos MD at [facility] Right: Subclavian [employer] 11/15/2024 [id number] / [id number] / [employer] Perclose 6fr Vascular Closure 17839-00 - [id number] Implanted:Qty: 2 on 12/22/2022 by Nnamdi Cruz MD at [facility] Right: Groin [employer] [id number] 09/15/2024 03950-15 / / [id number] Synthes Zipfix Needle Flexible Self Lock Round Edge Sternal Cable 08.501.001.05s - [id number] Implanted:Qty: 1 on 12/31/2022 by Erlin Ramos MD at [facility] N/A: Sternum Synthes I [id number] 04/16/2027 08. 501.00 1.05S / / [id number] Thoratec Luis Thoratec Corpgraft Outflow Lvad Heartmate 3 W-Bend Relief [id number] - [id number] Implanted:Qty: 1 on 12/31/2022 by Erlin Ramos MD at [facility] N/A: Heart [employer] Luis 12/03/2024 [id number] US / / [id number] Thoratec Luis Thoratec Corpheartmate 3 Left Ventricular Device Blood Pump [id number] - [facility]-[id number] - [id number] Implanted:Qty: 1 on 12/31/2022 by Erlin Ramos MD at [facility] N/A: Heart [employer] Luis 08/06/2025 355999 US / [id number] / Thoratec Luis Heartmate Implant Kit [id number] - [id number] - [id number] Implanted:Qty: 1 on 12/31/2022 by Erlin Ramos MD at [facility] N/A: Heart [employer] Luis 04/25/2024 [id number] / [id number] / Thoratec Luis Heartmate Xve Lvas Apical Sewing Ring Device Ventricular Assist 1065 - [id number] Implanted:Qty: 1 on 12/31/2022 by Erlin Ramos MD at [facility] N/A: Heart Thoratec Luis 01/15/2025 1065 / / [id number] [employer] Preclude [id number] Fpc Flexible Pericardium Thk.1mm Patch 8fbo695 - [id number] - [id number] Implanted:Qty: 1 on 12/31/2022 by Erlin Ramos MD at [facility] N/A: Heart Wl [employer] [id number] 11/22/2027 [id number] / [id number] / Wl [employer] Preclude [id number] Vice President & General Manager Brand [place] Flexible Pericardium Thk.1mm Patch [id number] - [id number] - [id number] Implanted:Qty: 1 on 12/31/2022 by Erlin Ramos MD at [facility] N/A: Heart Wl [employer] [id number] 11/25/2027 [id number] / [id number] / Procedures Procedure Name Priority Date/Time Associated [...] LVAD (left ventricular assist device) present (HCC) MCFP 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 therapy DIFFERENTIAL AUTO Routine 07/07/2024 10: 50 AM CDT LVAD (left ventricular assist device) present (HCC) MCFP 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 therapy CBC WITH AUTO DIFFERENTIAL Routine 07/07/2024 10:50 AM CDT LVAD (left ventricular assist device) present (HCC) MCFP 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 therapy COMPREHENSIVE METABOLIC PANEL Routine 07/07/2024 10:50 AM CDT LVAD (left ventricular assist device) present (HCC) MCFP 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 therapy LACTATE DEHYDROGENASE Routine 07/07/2024 10:50 AM CDT LVAD (left ventricular assist device) present (HCC) termite control technician 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 therapy PROTIME-INR Routine 07/07/2024 10:50 AM CDT LVAD (left ventricular assist device) present (HCC) MCFP 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 therapy TSH Routine 07/07/2024 10:50 AM CDT Palpitations Ventricular tachycardia (paroxysmal) (HCC) termite control technician current use of amiodarone ECG 12-LEAD Routine [...] type HEMOGLOBIN A1C Routine 03/02/2024 9:54 AM EMPLOYMENT APPEALS EXAMINER LIPID PANEL Routine 06/17/2023 CT CHEST ABDOMEN PELVIS WO CONTRAST IP Routine 01/13/2023 1:51 PM EMPLOYMENT APPEALS EXAMINER PSA DIAGNOSTIC Routine 11/14/2022 9:11 AM CDT [...] ORDERABL ES Final Result EXTERNAL LAB * Creatine kinase (CK), total (2024 10:01 AM CDT) Pathologist [facility] SCRIBED Creatine Kinase, Total, Serum 66 39 - 308 Blood 2024 10:0 1 AM CDT us Marlo Herbert MD PhD LAB BLOOD ORDERABL ES Final Result * (ABNORMAL) Comprehensive metabolic panel (2024 10:01 AM CDT) Pathologist [facility] SCRIBED Sodium 141 136 - 145 mmol/L [...] 130 EXTERNAL LAB SCRIBED eGFR in NonAfrican Tunisian 47.0(A) 90 - 130 EXTERNAL LAB OSMO CALC 298(A) 285 - 295 EXTERNAL LAB Globulin 2.9 1.3 - 4.6 g/dL (calc) EXTERNAL LAB Blood 2024 10:0 1 AM CDT Result [facility] Marlo Herbert MD PhD LAB BLOOD ORDERABL ES Final Result EXTERNAL LAB * (ABNORMAL) Protime-INR (2024) INR 2.48(A) 0.90 - 1.10 Blood Result [facility] Historical Provider LAB BLOOD ORDERABLES Katie l Result * (ABNORMAL) CBC with auto differential (08/03/2024) SCRIBED WBC 25.36(A) 3.29 - 11.43 k/cumm [facility] SCRIBED Hemoglobin 12.80 11.27 - 16.99 g/dL [facility] SCRIBED Hematocrit 41.2 37 - 53 % [facility] SCRIBED Platelets 163 157 - 399 k/cumm [facility] Blood 08/03/2024 Result [facility] Stas Marin MD LAB BLOOD ORDERABLES Fi nal Result [facility] [address] [phone] * (ABNORMAL) Protime-INR (08/03/2024) INR 2.25(A) 0.90 - 1.10 Blood Result [facility] Historical Provider LAB BLOOD ORDERABLES Katie l Result * (ABNORMAL) Protime-INR (08/03/2024) [facility] SCRIBED PT 26.20(A) 12.1 - 14.9 sec [facility] SCRIBED INR 2.25(A) 0.8 - 1.2 sec [facility] Blood 08/03/2024 Stas Marin MD LAB BLOOD ORDERABLES Fi nal Result Performing Organization Address [facility] de Phone Number [facility] [address] [phone] * Lactate dehydrogenase (LD) (08/03/2024) [facility] SCRIBED LDH 222 135 - 225 IUnit/mL [facility] Blood 08/03/2024 Stas Marin MD LAB BLOOD ORDERABLES Fi nal Result Performing Organization Address [facility] de Phone Number [facility] [address] [phone] * Creatine kinase (CK), total (08/03/2024) [facility] SCRIBED Creatine Kinase, Total, Serum 74 39 - 308 [facility] Blood 08/03/2024 Stas Marin MD LAB BLOOD ORDERABLES Fi nal Result Performing Organization Address [facility] de Phone Number [facility] [address] [phone] * (ABNORMAL) Comprehensive metabolic panel (08/03/2024) [facility] SCRIBED Sodium 140 136 - 145 mmol/L [facility] SCRIBED Potassium 5.0 3.5 - 5.1 mmol/L [facility] SCRIBED Chloride 107 98 - 107 mmol/L [facility] SCRIBED Carbon Dioxide 22 22 - 29 mmol/L [facility] SCRIBED Anion Gap 16.0 5 - 19 mmol/L [facility] SCRIBED Urea Nitrogen (BUN) 23 8 - 23 mg/dl [facility] SCRIBED Creatinine 1.5(A) 0.7 - 1.2 mg/dl [facility] SCRIBED Glucose 133(A) 65 - 115 mg/dl [facility] SCRIBED Calcium 9.5 8.5 - 10.5 mg/dl [facility] SCRIBED Bilirubin 0.6 0.15 - 1.2 mg/dl [facility] SCRIBED Plasma Protein 7.1 6.6 - 8.7 g/dl [facility] SCRIBED Albumin 4.0 3.5 - 5.2 g/dl [facility] SCRIBED Alkaline Phosphatase 103 40 - 130 Units/L [facility] SCRIBED Alanine Transaminase (ALT) 26 0 - 41 Units/L [facility] SCRIBED Aspartate Transaminase (AST) 26 0 - 40 Units/L [facility] SCRIBED eGFR in NonAfrican Tunisian 47.1 n/a [facility] Osmolality 296(A) 285 - 295 mOsmol/kg [facility] Globulin 3.1 1.3 - 4.6 g/dL (calc) [facility] Blood 08/03/2024 us Stas Marin MD LAB BLOOD ORDERABLES Ed ited Result - Final [facility] [address] [phone] * (ABNORMAL) CBC with auto differential (07/20/2024 9:30 AM CDT) SCRIBED WBC 26.19(A) 3.29 - 11.43 k/cumm [facility] FOUND SCRIBED Hemoglobin 12.60 11.27 - 16.99 g/dL [facility]OUND SCRIBED Hematocrit 39.3 37 - 53 % [facility] FOUND SCRIBED Platelets 150(A) 157 - 399 k/cumm [facility] NO [facility] FOUND Blood 07/20/2024 9:30 AM CDT us Marlo Herbert MD PhD LAB BLOOD ORDERABL ES Final Result Performing Organization Address [facility] Phone Number [facility] NO [facility] FOUND * (ABNORMAL) Protime-INR (07/20/2024 9:30 AM CDT) SCRIBED PT 22.00(A) 12.1 - 14.9 sec [facility] FOUND SCRIBED INR 1.80(A) 2.00 - 3.00 sec [facility] FOUND Blood 07/20/2024 9:30 AM CDT us Marlo Herbert MD PhD LAB BLOOD ORDERABL ES Final Result Performing Organization Address [facility] Phone Number [facility] NO [facility] FOUND * Lactate dehydrogenase (LD) (07/20/2024 9:30 AM CDT) SCRIBED LDH 184 135 - 225 IUnit/mL [facility] FOUND Blood 07/20/2024 9:30 AM CDT us Marlo Herbert MD PhD LAB BLOOD ORDERABL ES Final Result Performing Organization Address [facility] Phone Number [facility] NO LAB FOUND * Creatine kinase (CK), total (07/20/2024 9:30 AM CDT) SCRIBED Creatine Kinase, Total, Serum 64 39 - 308 [facility] NO [facility] FOUND Blood 07/20/2024 9:30 AM CDT us Marlo Herbert MD PhD LAB BLOOD ORDERABL ES Final Result Performing Organization Address [facility] Phone Number [facility] NO LAB FOUND * [...] NO LAB FOUND SCRIBED eGFR in NonAfrican Tunisian 40.8(A) 90 - 130 [facility] NO [facility] FOUND Blood 07/20/2024 9:30 AM CDT us Marlo Herbert MD PhD LAB BLOOD ORDERABL ES Final Result [facility] NO [facility] FOUND * (ABNORMAL) Protime-INR (07/20/2024) INR 1.80(A) 0.90 - 1.10 Blood us [facility] Provider LAB BLOOD ORDERABLES Katie l Result * (ABNORMAL) eGFR (07/07/2024 10:50 AM CDT) eGFR 34(L) >=60 mL/min/1. 73 m2 Comment: [...] 0 AM CDT 07/07/2024 11:23 AM CDT us Marlo Herbert MD PhD LAB BLOOD ORDERABL ES Final Result [facility] [address] [facility]. Department of Laboratories [place], [place] [id number] * (ABNORMAL) Differential, auto (07/07/2024 10:50 AM CDT) Pathologist [facility] Neutrophil abs 6.37 1.50 - 6.50 K/cumm Imm gran abs 0.08 0.00 - 0.10 K/cumm [facility] Lymphocyte abs 22.59(H) 0.80 - 3.30 K/cumm [facility] Monocyte abs 0.57 0.20 - 0.80 K/cumm [facility] Eosinophil abs 0.17 0.00 - 0.50 K/cumm [facility] Basophil abs 0.08 0.00 - 0.10 K/cumm [facility] Neutrophil pct 21.2 % [facility] Comment: Interpretive Data Percent cell count reference ranges are not reported, since discordance with absolute values may lead to misinterpretation of CBC data. Current Interpretive Data was last revised on 2017. Imm gran pct 0.3 % [facility] Comment: Interpretive Data Percent cell count reference ranges are not reported, since discordance with absolute values may lead to misinterpretation of CBC data. Current Interpretive Data was last revised on 2017. Lymphocyte pct 75.7 % [facility] Comment: Interpretive Data Percent cell count reference ranges are not reported, since discordance with absolute values may lead to misinterpretation of CBC data. Current Interpretive Data was last revised on 2017. Monocyte pct 1.9 % [facility] Comment: Interpretive Data Percent cell count reference ranges are not reported, since discordance with absolute values may lead to misinterpretation of CBC data. Current Interpretive Data was last revised on 2017. Eosinophil pct 0.6 % [facility] Comment: Interpretive Data Percent cell count reference ranges are not reported, since discordance with absolute values may lead to misinterpretation of CBC data. Current Interpretive Data was last revised on 2017. Basophil pct 0.3 % [facility] Comment: Interpretive Data Percent cell count reference ranges are not reported, since discordance with absolute values may lead to misinterpretation of CBC data. Current Interpretive Data was last revised on 2017. Blood 07/07/2024 10:5 0 AM CDT 07/07/2024 11:22 AM CDT us Marlo Herbert MD PhD LAB BLOOD ORDERABL ES Final Result [facility] [address] [facility]. Department of Laboratories [place], [place] [id number] * (ABNORMAL) CBC with auto differential (07/07/2024 10:50 AM CDT) WBC 29.86(H) 3.80 - 9.90 K/cumm Hgb 13.2 13.0 - 17.5 g/dL [facility] Hct 42.1 38.9 - 50.3 % [facility] Plt 156 150 - 400 K/cumm [facility] Comment:No clot detected in sample. MPV 13.2(H) 9.1 - 12.3 fL [facility] RBC 4.54 4.30 - 5.80 M/cumm [facility] MCV 92.7 81.3 - 96.4 fL [facility] MCH 29.1 27.1 - 33.3 pg [facility] MCHC 31.4(L) 32.3 - 35.7 g/dL [facility] RDW CV 15.2(H) 11.1 - 14.9 % [facility] RDW SD 51.6(H) 35.7 - 48.1 fL [facility] NRBC abs 0.00 0.00 - 0.01 K/cumm [facility] Morphologic Screen Results confirmed by manual morphology review. [facility] Blood 07/07/2024 10:5 0 AM CDT 07/07/2024 11:22 AM CDT us Marlo Herbert MD PhD LAB BLOOD ORDERABL ES Final Result [facility] [address] [facility]. [place] [address] * (ABNORMAL) Protime-INR (07/07/2024 10:50 AM CDT) PT 27.7(H) 9.7 - 13.0 sec INR 2.52(H) 0.90 - 1.20 [facility] Comment: Interpretive data Oral anticoagulant therapeutic ranges: [...] ORDERABL ES Final Result Performing Organization Address [facility] Co de Phone Number [facility] [address] [facility] [employer] [place], [place] [id number] * TSH (07/07/2024 10:50 AM CDT) Pathologist [facility] Thyroid Stimulating Hormone 2.43 0.30 - 4.20 mcIUnit/mL Blood 07/07/2024 10:5 0 AM CDT 07/07/2024 11:22 AM CDT us Maria Alejandra Winter PULMONARY CARE NURSE LAB BLOOD ORDERABLES Katie l Result Performing Organization Address [facility] Co de Phone Number [facility] [address] [address] [facility] [place] [address] * Lactate dehydrogenase (LD) (07/07/2024 10:50 AM CDT) [facility] Lactate dehydrogenase (LDH) 222 100 - 250 Units/L Comment:Hemolyzed; result ma y be falsely elevated. Blood 07/07/2024 10:5 0 AM CDT 07/07/2024 11:22 AM CDT us Marlo Herbert MD PhD LAB BLOOD ORDERABL ES Final Result Performing Organization Address [facility] Co de Phone Number [facility] [address] [facility] [place] [address] * (ABNORMAL) Comprehensive metabolic panel (07/07/2024 10:50 AM CDT) Pathologist [facility] Sodium 140 135 - 145 mmol/L Potassium, pl 4.6 3.3 - 4.9 mmol/L [facility] Chloride 103 97 - 110 mmol/L [facility] CO2 21(L) 22 - 32 mmol/L [facility] Anion gap 16(H) 2 - 15 mmol/L [facility] BUN 31(H) 6 - 25 mg/dL [facility] [...] classification and Diagnosis of Diabetes Diabetes Care 202; 46: S19-S40. Current interpretive data was last [...] LAB BLOOD ORDERABL ES Final Result [facility] [address] [facility]. [place] [address] * ECG 12 lead (07/07/2024 9:11 AM CDT) us Maria Alejandra Winter PULMONARY CARE NURSE ECG ORDERABLES Edited Re sult - Final * DEVICE CHECK - IN OFFICE (07/07/2024 8:19 AM CDT) Anatomical Region Laterality Modality Other 07/07/2024 2:00 AM CDT Narrative 07/19/2024 2:52 PM CDT Interpretation Summary: Battery and Leads (BL) Normal parameters noted on battery and lead(s) --- battery longevity estimate: 12.5yrs Presenting Rhythm (ID) Atrial Sensing-Ventricular Sensing (-VS) Atrial Sensing-Ventricular Pacing (-ADJUSTMENT CLERK) Arrhythmic events (AE) No new arrhythmic events in monitoring period Anticoagulation (AC) Patient prescribed Warfarin (Coumadin) Patient on anticoagulant therapy Procedure Note Sepideh Concepcion MD - 07/19/2024 Interpretation Summary: Battery and Leads (BL) Normal parameters noted on battery and lead(s) --- battery longevityestimate: 12.5yrs Presenting Rhythm (ID) Atrial Sensing-Ventricular Sensing (-VS) Atrial Sensing-Ventricular Pacing (-ADJUSTMENT CLERK) Arrhythmic events (AE) No new arrhythmic events in monitoring period Anticoagulation (AC) Patient prescribed Warfarin (Coumadin) Patient on anticoagulant therapy Gordon Mcdaniel MD CV CARDIAC SERVICES PROCEDURES Final Result * (ABNORMAL) Protime-INR (06/30/2024) Pathologist [facility] INR 2.28(A) 0.90 - 1.10 Blood Historical Provider LAB BLOOD ORDERABLES Katie l Result * CK (06/29/2024 9:27 AM CDT) Pathologist [facility] CK 82 39 - 308 EXTERNAL LAB 06/29/2024 9:27 AM CDT Stas Marin MD LAB BLOOD ORDERABLES Fi nal Result EXTERNAL LAB * (ABNORMAL) CBC with auto differential (06/29/2024 9:27 AM CDT) Pathologist [facility] SCRIBED WBC 27.98(A) 3.29 - 11.43 k/cumm EXTERNAL LAB SCRIBED Hemoglobin 12.90 11.27 - 16.99 g/dL EXTERNAL LAB SCRIBED Hematocrit 40.1 37 - 53 % EXTERNAL LAB SCRIBED Platelets 150(A) 157 - 399 k/cumm EXTERNAL LAB Blood 06/29/2024 9:27 AM CDT us Stas Marin MD LAB BLOOD ORDERABLES Fi nal Result Performing Organization Address City/[facility]/ZIP Co de Phone Number EXTERNAL LAB * (ABNORMAL) Protime-INR (06/29/2024 9:27 AM CDT) SCRIBED PT 26.40(A) 12.1 - 14.9 sec EXTERNAL LAB SCRIBED INR 2.28 2.00 - 3.00 sec EXTERNAL LAB Blood 06/29/2024 9:27 AM CDT us Stas Marin MD LAB BLOOD ORDERABLES Ed ited Result - Final Performing Organization Address [facility] Co de Phone Number EXTERNAL LAB * Lactate dehydrogenase (LD) (06/29/2024 9:27 AM CDT) SCRIBED LDH 199 135 - 225 IUnit/mL EXTERNAL LAB Blood 06/29/2024 9:27 AM CDT us Stas Marin MD LAB BLOOD ORDERABLES Fi nal Result Performing Organization Address [facility] Co de Phone Number EXTERNAL LAB [...] 130 EXTERNAL LAB SCRIBED eGFR in NonAfrican Tunisian 33.8(A) 90 - 130 EXTERNAL LAB Globulin [...] estimate based on prior usage) Presenting Rhythm (ID) Atrial Sensing-Ventricular Pacing (-ADJUSTMENT CLERK) --- rate 71 Arrhythmic events (AE) No new arrhythmic events in monitoring period Anticoagulation (AC) Patient prescribed Warfarin (Coumadin) Patient on anticoagulant therapy Transmission Information (TI) Device Summary Report Procedure Note Luís Coronado MD PhD - 06/23/2024 Interpretation Summary: Battery and Leads (BL) Normal parameters noted on battery and lead(s) --- 12.5 years remaining(this is an estimate based on prior usage) Presenting Rhythm (ID) Atrial Sensing-Ventricular Pacing (-ADJUSTMENT CLERK) --- rate 71 Arrhythmic events (AE) No new arrhythmic events in monitoring period Anticoagulation (AC) Patient prescribed Warfarin (Coumadin) Patient on anticoagulant therapy Transmission Information (TI) Device Summary Report Result [facility] Luís Coronado MD PhD CV CARDIAC SERVICES ID OCEDURES Final Result * CK (06/15/2024) Pathologist [facility] CPK (CK), TOTAL 77 39 - 308 [facility] 06/15/2024 Result [facility] Marlo Herbert MD PhD LAB BLOOD ORDERABL ES Final Result Performing Organization Address [facility] Co de Phone Number [facility] [address] [phone] * (ABNORMAL) CBC with auto differential (06/15/2024) [facility] SCRIBED WBC 28.33(A) 3.29 - 11.43 k/cumm [facility] SCRIBED Hemoglobin 13.10 11.27 - 16.99 g/dL [facility] SCRIBED Hematocrit 41.2 37 - 53 % [facility] SCRIBED Platelets 170 157 - 399 k/cumm [facility] Blood 06/15/2024 Result [facility] Marlo Herbert MD PhD LAB BLOOD ORDERABL ES Final Result Performing Organization Address City/[facility] Co de Phone Number [facility] [address] [place], [place] [id number] [place] [address] * (ABNORMAL) Protime-INR (06/15/2024) [facility] INR 2.47(A) 0.90 - 1.10 Blood Result [facility] Ekta Provider LAB BLOOD ORDERABLES Katie l Result * (ABNORMAL) Protime-INR (06/15/2024) [facility] SCRIBED PT 28.10(A) 12.1 - 14.9 sec [facility] SCRIBED INR 2.47(A) 0.8 - 1.2 sec [facility] Blood 06/15/2024 Marlo Herbert MD PhD LAB BLOOD ORDERABL ES Final Result Performing Organization Address [facility] de Phone Number [facility] [address] [phone] * Lactate dehydrogenase (LD) (06/15/2024) [facility] SCRIBED LDH 204 135 - 225 IUnit/mL [facility] Blood 06/15/2024 Marlo Herbert MD PhD LAB BLOOD ORDERABL ES Final Result Performing Organization Address [facility] Phone Number [facility] [address] [phone] * (ABNORMAL) Comprehensive metabolic panel (06/15/2024) [facility] SCRIBED Sodium 137 136 - 145 mmol/L [facility] SCRIBED Potassium 4.6 3.5 - 5.1 mmol/L [facility] SCRIBED Chloride 102 98 - 107 mmol/L [facility] SCRIBED Carbon Dioxide 21(A) 22 - 29 mmol/L [facility] SCRIBED Anion Gap 18.6 5 - 19 mmol/L [facility] SCRIBED Urea Nitrogen (BUN) 35(A) 8 - 23 mg/dl [facility] SCRIBED Creatinine 1.8(A) 0.7 - 1.2 mg/dl [facility] SCRIBED Glucose 154(A) 65 - 115 mg/dl [facility] SCRIBED Calcium 98.4(A) 8.5 - 10.5 mg/dl [facility] SCRIBED Bilirubin 0.8 0.15 - 1.2 mg/dl [facility] Plasma Protein 7.2 6.6 - 8.7 g/dl [facility] Albumin 4.1 3.5 - 5.2 g/dl [facility] SCR[facility] Alkaline Phosphatase 96 40 - 130 Units/L [facility] SCR[facility] Alanine Transaminase (ALT) 29 0 - 41 Units/L [facility] SCRIB[facility] Aspartate Transaminase (AST) 28 0 - 40 Units/L [facility] SCRIBED eGFR in NonAfrican Tunisian 38.2(A) 90 - 130 [facility] Serum Osmolality 295 285 - 295 [facility] Blood 06/15/2024 us Marlo Herbert MD PhD LAB BLOOD ORDERABL ES Edited Result - Final [facility] [address] [phone] * Hepatitis panel, acute Blood (05/30/2024 10:40 AM CDT) Hep A IgM Nonreactive Nonreactive Hep B core IgM Nonreactive Nonreactive [facility] Hep C Ab Nonreactive Nonreactive [facility] Comment:Antibodies to HCV no t detected. Does NOT exclude the possibility of recent exposure to HCV. Current interpretive data was last revised on 21 HepBsAg Nonreactive Nonreactive [facility] Blood 05/30/2024 10:4 0 AM CDT 05/30/2024 11:10 AM CDT us Rama Zavala MD LAB MICROBIOLOGY - GENERA L ORDERABLES Final Result [facility] Department [place] [address] * (ABNORMAL) Hemoglobin A1c (03/02/2024 9:54 AM EMPLOYMENT APPEALS EXAMINER) SCRIBED Hemoglobin A1c 6.3(A) 4.0 - 6.0 % EXTERNAL LAB Blood 03/02/2024 9:54 AM EMPLOYMENT APPEALS EXAMINER us Marlo Herbert MD PhD LAB BLOOD ORDERABL ES Final Result EXTERNAL LAB * (ABNORMAL) Lipid panel (06/17/2023) SCRIBED Cholesterol, Total 139 0 - 200 SCRIBED HDL 54(A) 60 - 100 SCRIBED LDL 58 50 - 129 SCRIBED Triglycerides 134 0 - 150 Blood 06/17/2023 us Martine Wilson PULMONARY CARE NURSE LAB BLOOD ORDERABLES Final Re sult * CT Chest Abdomen Pelvis WO Contrast (01/13/2023 1:51 PM EMPLOYMENT APPEALS EXAMINER) Anatomical Region Laterality Modality Body N/A Computed Tomogra phy 01/13/2023 3:31 PM EMPLOYMENT APPEALS EXAMINER Impressions 01/13/2023 3:54 PM EMPLOYMENT APPEALS EXAMINER 1. Post surgical changes of LVAD placement [...] Benito Sanchez MD Narrative 01/13/2023 3:54 PM EMPLOYMENT APPEALS EXAMINER EXAMINATION: Computed tomography of the chest, abdomen [...] signed by: Benito Sanchez MD Catherine Reardon PULMONARY CARE NURSE IMG CT PROCEDURES Final Resul t * (ABNORMAL) PSA diagnostic (11/14/2022 9:11 AM CDT) PSA-Total 6.46(H) <=5.40 ng/mL [facility] Comment: Interpretive Data AGE SEX REFERENCE INTERVAL [...] PhD LAB BLOOD ORDERABLES F inal Result [facility] Department [place] [address] from Last 3 Months or Most Recently Relevant to Health [place] [address] [place] Advance Directives For more information, please contact: [phone] Documents on File Type Date Recorded Patient Top Former Expl 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 ADVANCE DIRECTIVE 12/31/2022 2:44 AM [employer] ADVANCE DIRECTIVE 12/26/2022 5:54 PM [employer] * Full Code (Latest Code Status on File) Date Activated Date Inactivated Comments 12/31/2022 3:54 PM 01/28/2023 10:06 PM * Full Code Date Activated Date Inactivated Comments 11/13/2022 7:30 PM 12/31/2022 3:54 PM Care Teams Heating Element Builder Relationship Specialty Start Date End Date Martine Wilson NP [address] [place] [address] PCP - General Family Practice 11/14/22 Janae Serna RN VAD Coordinator 02/25/24 Derick Su DO [address] [place] [phone] Family Medicine 07/19/24
--- OUTSIDE RECORDS SUMMARY | 2024-09-10 15:11 | XMS_ITS | Encounter Summary ---
Author Organization [facility] Healthcare Address [address] [place] [address] Care Team Providers Care Knot Borer Name Role Phone Martine Wilson NP Primary Care Provider [phone] Janae Serna RN Unavailable [phone] Derick Su DO Unavailable [phone] Encounter Details Date Type Department Care Team (Late st Contact Info) Description 09/05/[address] [facility] Transplant Heart [address] [facility] [address] Mailstop [id number] [place] [address] aJnae Serna, RN Social History Tobacco Use Types Packs/Day Years [...] often do you attend chur ch or cheondoism services? Never 11/18/2022 Do you belong to any clubs o r organizations such as latter-day groups, unions, fraternal or athletic groups, or [...] place to sleep or slept in a senior living (including now)? No 11/18/2022 Personal Safety Answer [...] on file documented as of this encounter Ordered Prescriptions Prescription Sig Dispense Quantity Refills Last Filled Start Date End Date warfarin (COUMADIN) 6 mg tablet Take 1 tablet (6 mg total) by mouth daily 90 tablet 3 09/05/2024 traZODone (DESYREL) 150 mg tablet Take 1 tablet (150 mg total) by mouth nightly 90 tablet 3 09/05/2024 6 potassium chloride ER (KLOR-CON) 20 mEq CR tablet Take 2 tablets (40 mEq total) by mouth daily 180 tablet 3 09/05/[address] (PROTONIX) 40 mg EC tabletIndications: Stress Ulcer Prophylaxis Take 1 tablet (40 mg total) by mouth 2 (two) times a day 180 tablet 3 09/05/2024 6 isosorbide mononitrate ER (IMDUR) 30 mg 24 hr tablet Take 1 tablet (30 mg total) by mouth daily 90 tablet 3 09/05/2024 6 furosemide (Lasix) 40 mg tablet Take 1 tablet (40 mg total) by mouth daily 90 tablet 3 09/05/2024 6 atorvastatin (LIPITOR) 40 mg tablet Take 1 tablet (40 mg total) by mouth nightly 90 tablet 3 09/05/2024 6 documented in this encounter Plan of Treatment Not on file documented as of this encounter Visit Diagnoses Not on filedocumented in this encounter Discontinued Medications Medication Sig Discontinue Reason Start Date End Da te warfarin (COUMADIN) 1 mg tablet Take 1 tablet along with a 5 mg tablet (6 mg total) 08/15/2024 09/05/2024 warfarin (COUMADIN) 2 mg tablet 6 mg daily 07/20/2024 09/05/2024 warfarin (COUMADIN) 5 mg tablet Take one tablet along with 1 mg tablet ( 6 mg total) daily 08/15/2024 09/05/2024 traZODone (DESYREL) 150 mg tablet Take 1 tablet (150 mg total) by mouth nightly Reorder 01/28/2023 09/05/2024 furosemide (Lasix) 40 mg tablet Take 1 tablet (40 mg total) by mouth daily Reorder 09/03/2023 09/05/[address] (PROTONIX) 40 mg EC tabletIndications:Stress Ulcer Prophylaxis Take 1 tablet (40 mg total) by mouth 2 (two) times a day Reorder 11/19/2023 09/05/2024 isosorbide mononitrate ER (IMDUR) 30 mg 24 hr tablet Take 1 tablet (30 mg total) by mouth daily Reorder 11/19/2023 09/05/2024 potassium chloride ER (KLOR-CON) 20 mEq CR tablet Take 2 tablets (40 mEq total) by mouth daily Reorder 03/14/2024 09/05/2024 atorvastatin (LIPITOR) 40 mg tablet Take 1 tablet (40 mg total) by mouth nightly Reorder 08/15/2024 09/05/2024 documented as of this encounter Care Teams Knot Borer Relationship Specialty Start Date End Date Martine Wilson NP [address] [place] [address] PCP - General Family Practice 11/14/22 Janae Serna RN VAD Coordinator 02/25/24 Derick Su DO [address] [place] [phone] Family Medicine 07/19/24 documented as of this encounter
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
== END 2024-09-10 16:34 | disposition home or self-care (01) ==
PROVIDERS: Emergency Provider Emergency Medicine; PCP Registered Nurse
DX: H11.32 Conjunctival hemorrhage, left eye (principal); Z87.891 Personal history of nicotine dependence; E78.5 Hyperlipidemia, unspecified; E11.9 Type 2 diabetes mellitus without complications; I10 Essential (primary) hypertension
CPT/HCPCS: 99281